=== PATIENT | female | born 1960 | race Caucasian/White ===

== ENCOUNTER → 2017-12-16 06:59 | Outpatient (CLI) | payer OTHER, SELFPAY ==
--- NOTE | 2017-12-16 07:07 | BI_ITS ---
MAMMOGRAPHY - BILATERAL SCREENING REASON FOR EXAM: Female, 57 years old. Routine annual screening examination. PERTINENT HISTORY: Personal history of breast cancer. Prior right lumpectomy and radiation therapy. Grandmother with breast cancer. TECHNIQUE: Digital bilateral breast nesha (3D mammographic acquisition) in the CC and MLO projections. 2-D mediolateral oblique (MLO) and craniocaudad (CC) views of both breasts were obtained. CAD: Full Field Digital Mammography with Computer Added Detection was performed. COMPARISON: Comparison is made with prior outside examination dated December 12, 2016. FINDINGS: Breast Composition: The breasts are heterogeneously dense, which may obscure small masses. There are no dominant masses or suspicious calcifications. Postsurgical changes are seen in the deep upper medial aspect of the right breast in keeping with prior lumpectomy and radiation treatment. Surgical clips are also seen in the right axillary region. Stable appearance of the axillary lymph nodes. No other significant abnormalities are identified. There has been no significant change since the prior study. BI/SCREENING MAMM (CAD), BILAT IMPRESSION: Stable bilateral screening mammogram. Yearly follow-up mammogram recommended. (A) ASSESSMENT CATEGORY: BIRADS Category 2: Benign. A letter regarding these results will be sent to the patient by the facility within 30 days. Approximately 10% of breast cancers are not detected by mammography. A normal mammogram should not delay biopsy of a clinically suspicious abnormality. [id number] Electronically Signed: Silverio Masters MD at 9:52 EDT Tel [phone], Service support ,
== END ==
PROVIDERS: Family Provider Internal Medicine; PCP Internal Medicine; Visit Provider Internal Medicine
DX: Z12.31 Encounter for screening mammogram for malignant neoplasm of breast (principal); Z78.0 Asymptomatic menopausal state
CPT/HCPCS: 77063; 77067

== ENCOUNTER → 2018-01-15 16:59 | Outpatient (CLI) | payer OTHER, SELFPAY ==
--- NOTE | 2018-01-15 | FLU_PTH ---
PATIENT: LUMA HERRING LOC: [facility] U#:[id number] AGE/SX: 65/F ROOM: RE01/15/[address]: Dr. To Baltazar MD : 1960 BED: DIS: SPEC #: [id number] RECD: 01/15/18 16:00 STATUS: BHANU TWIN #: [id number] ARTUR: 01/15/18 00:[address]: To Baltazar DEPT: CYTOLOGY RECD BY: Pete Patten ENTERED: 01/16/18 08:35 SP TYPE: Fluid OTHR DR: Dr. Lesly Cross, DO Tissues: Urine Procedures: Pap Stain (control) Special Stain Group II Cytospin Fluid HEADER OPERATION: Not noted PRE-OP DIAGNOSIS: Hematuria TISSUE SUBMITTED: Urine for cytology DIAGNOSIS CYTOLOGY Urine for cytology (cytospin): Negative for malignant cells. BHANU:clarita 01/19/18 CYTOLOGY STUDY Slides are reviewed. The specimen consists of benign squamous cells, urothelial cells, inflammatory cells, red blood cells and crystals. CYTOLOGY GROSS Received is 90 ml of cloudy gold/yellow fluid labeled with the patient's name and and designated per the requisition as urine. Submitted for cytology preparation. / BOLA:karla 01/16/18 TC:5 CPT: 56715
[2018-01-15 17:03] LABS: Cytology, Body Fluid / CSF SEE PATHOLOGY REPORT
== END ==
PROVIDERS: Visit Provider Urology
DX: R31.9 Hematuria, unspecified (principal)
CPT/HCPCS: 88108; 88305; 88313

== ENCOUNTER → 2018-05-19 08:30 | Outpatient (CLI) | payer OTHER, SELFPAY ==
--- NOTE | 2018-05-19 08:32 | BD_ITS ---
STUDY: DUAL ENERGY X-RAY ABSORPTIOMETRY / DXA REASON FOR EXAM: Female, 58 years old. Early menopause. No loss of height. TECHNIQUE: Bone Mineral Density (BMD) measurements of lumbar spine and bilateral hips were obtained. COMPARISON: Comparison is made with prior study dated May 15, 2016. FINDINGS: Lumbar Spine (L1-L4): g/cm2 (0.933) / T-score (-2.1) / Z-score (-1.2) Findings are suggestive of osteopenia with a moderate fracture risk. Left Femur Total: g/cm2 (0.673) / T-score (-2.7) / Z-score (-2.0) Left Femoral Neck: g/cm2 (0.709) / T-score (-2.4) / Z-score (-1.3) Right Femur Total: g/cm2 (0.726) / T-score (-2.2) / Z-score (-1.5) Right Femoral Neck: g/cm2 (0.742) / T-score (-2.1) / Z-score (-1.1) The T-Scores on the most recent prior examination were: Lumbar Spine (L1-L4): There has been improvement of bone density since the previous examination. Left Femur Total: which represents a worsening of 2.7%. Right Femur Total: which represents a worsening of 4.7%. BD/Dexa Bone Density Study IMPRESSION: The patient is considered osteoporotic as outlined below according to World Murphy Organization (WHO) criteria with a high fracture risk. There has been worsening of bone density since the previous examination. Reference Information: The T-score is the number of standard deviations above or below the standard which is normal for young adults at their peak bone mineral density. The World Health Organization (WHO) interprets the T-scores as follows: Above -1 Normal bone density Between -1 and -2.5 Osteopenia Equal to / or below -2.5 Osteoporosis As a practical clinical guideline, osteopenia may be graded as follows: Mild -1 through -1.5 Moderate -1.6 through -2.0 Severe -2.1 through -2.4 The Z-score is the number of standard deviations above or below age-matched controls. A Z-score of less than -1.5 would be considered abnormal. References: 1. NIH Osteoporosis and Related Bone Diseases http://www.osteo.org 2. International Society for Clinical Densitometry http://www.iscd.org 3. National Osteoporosis Foundation http://www.nof.org Electronically Signed: Silverio Masters MD at 13:13 EST Tel [phone], Service support ,
--- OUTSIDE RECORDS SUMMARY | 2018-06-30 21:03 | XMS RPT_ITS | Continuity of Care Document ---
:1960 Author Organization [facility] Address [facility] [address] Phone Care Team Providers Name Role Phone Lesly Cross DO Unavailable Margarito GONZALEZ, Dr. Carlos Dan Unavailable Shauna Nazario DO Unavailable ROSI Fuentes Unavailable Unavailable Nancy English Unavailable Unavailable Unavailable Unavailable Problems Name Dates Details Abnormal blood chemistry (R79.9, 790.6) Status: Active Abnormal ultrasound (R93.8, 793.99) Status: Active Basal Cell Carcinoma Status: Active BMI 21.0-21.9, adult (Z68.21, V85.1) Status: Active BMI 22.0-22.9, adult (Z68.22, V85.1) Status: Active Body mass index (BMI) 21.0-21.9, adult (Z68.21, V85.1) Status: Active CONTACT DERMATITIS AND OTHER ECZEMA DUE TO PLANTS (EXCEPT FOOD) (L25.5, 692.6) Status: Active Deliveries (Parity) Comments: 2 Status: Active Dermatitis (L30.9, 692.9) Status: Active Elevated liver enzymes (R74.8, 790.5) Comments: follow up 6 weeks Status: Active Encounter for screening mammogram for breast cancer (Renamed from Encounter for screening mammogram for malignant neoplasm of breast) (Z12.31, V76.12) Status: Active Gastroenteritis (K52.9, 558.9) Status: Active hair loss Status: Active Hypercalcemia (E83.52, 275.42) Comments: better - stay off calcium and vvit d Status: Active 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 DIET AND EXERCISE: - 10,000 steps a day (can buy a pedometer at [employer]), -5 days of w [place] of 30 mins of cardiotraining (increase heartrate around 110-130 and sweating in 10 min), twice a week of 15 min weight lifting. Keep track of daily food intake, watch portion control, must make life style change and not just diet.-limit sugars to 20-30 grams a day. Avoid soda, pop and white starches. Replace refined grains (white bread, white rice, refined sweet cereal with whole grain(whole whe at, whole grain, brown rice, whole grain cereal, oatmeal, barley, bulgar, popcorn oat cereal,muesli cereal, rye quinoa, whole grain anything) Avoid pasta, potatoes, corn syrups. Avoid pasta if you have to have any use spiralizer/spagetti squash/zuchini for pasta and quinoa for rice.(recommend 1/3 of grains whole grains, about 30 gm a day)-Avoid red meat, processed meats. Clean eating:lean protein like fish, chicken, turkey, lean redmeat (only 2-3 servings a week), baked broiled or grilled.1-2 servings of oily fish per week is recommended to decrease cardiovascular disease.- Type of fat is more important than total fat. Saturated fats to avoid are meat, dairy, chips, pastries, hydrogenated veg. oilPolyunsaturated fats are protective , in foods like nuts, avocados, olives- 2 cups of fruit and 2 cups of veggies a day ,double the vegetables over fruits. Fruits and vegetables are a high source of fiber-Eat from refrigerator not pantry. Shop from the outside aisle and produce and not inner aisl e.Weigh yourself daily, lose 1-2 pounds per week. In three months if unable to loose atleast 4 pounds a month, then need to talk about further treatment strategies.+LDL 177 was 172 on 05/11/16)TC 263 was 256HDL 59 Sedentary job. Status: Active Malignant neoplasm of breast (female) (C50.919, 174.9) Comments: 2004- lumpectomy right breast- had radiation- Dr Martinez released her Status: Active Need for prophylactic vaccination and inoculation against influenza (Z23, V04.81) Status: Active Nonsmoker (Z78.9, V49.89) Status: Active Osteoporosis (Renamed from OP (osteoporosis)) (M81.0, 733.00) Comments: On indapamide because of hypercalciuria Status: Active Other premature beats (I49.49, 427.69) Status: Active Postmenopausal (Renamed from Postmenopausal status) (Z78.0, V49.81) Status: Active postmenopausal without estrogen Status: Active postmenopausal without estrogen Status: Active Pregnancies () Comments: 2 Status: Active Pruritus (L29.9, 698.9) Status: Active screening Status: Active Screening for breast cancer (Z12.39, V76.10) Status: Active Shoulder pain (M25.519, 719.41) Comments: she will check with insurance and see if will cover pt Status: Active Squamous Cell Carcinoma Excision Status: Active Unspecified Diagnosis Status: Active Unspecified Diagnosis Status: Active Vitamin D deficiency (E55.9, 268.9) Status: Active Well woman exam with routine gynecological exam (Z01.419, V72.31) Status: Active Medications Name Dates Details Atorvastatin Calcium 10 MG Oral Tablet 1 (one) Tablet qd for 0 days Quantity: 90 {Tablet} Refills: 3 Ordered:22-May-2018 Loan Cross DO, DO, Kathleen Start : 22-May-2018 Active BIOTIN 5000, 5MG (Oral Capsule) 1 cap qd (5 MG) Active CULTURELLE (Oral Capsule) 1 cap daily Active Indapamide 1.25 MG Oral Tablet 1 (one) Tablet daily for 90 days Quantity: 90 {Tablet} Refills: 2 Ordered:30-Oct-2017 Tay TOLBERT Alcarlton TOLBERT Lesly Start : 30-Oct-2017 Active MULTIVITAMIN (PO Tab) 1 tab qd Active Tuna Fish Oil one daily Active VITAMIN D3, 1000UNIT (Oral Capsule) 1 cap daily (1000 UNIT) Active Zetia 10 MG Oral Tablet 1 (one) Tablet qd for 0 days Quantity: 90 {Tablet} Refills: 3 Ordered:16-Mar-2018 Tay TOLBERT LeslyTay TOLBERT Lesly Start : 16-Mar-2018 Active Benadryl 25 MG Oral Capsule 1 (one) Capsule at bedtime for 10 days Quantity: 10 {Capsule} Refills: 0 Ordered:17-Jan-2016 Wang Calderon MD Start : 04-Jan-2016 End : 14-Jan-2016 Inactive CALCIUM, [id number] (Oral Tablet) 1 tab qd (600-200 MG-UNIT) Inactive GLUCOSAMINE CHONDR 500 COMPLEX (Oral Capsule) 3 caps qd Inactive Lipitor 10 MG Oral Tablet 1 (one) Tablet Tablet daily for 90 days Quantity: 90 {Tablet} Refills: 1 Ordered:05-Sep-2016 Darleen Fuentes LPN Start : 14-May-2016 End : 05-Sep-2016 Inactive Meloxicam 15 MG Oral Tablet 1 (one) Tablet Tablet qd with food for 0 days Quantity: 30 {Tablet} Refills: 2 Ordered:12-Sep-2017 Darlene Fuentes LPN Start : 25-Sep-2015 End : 12-Sep-2017 Inactive MOBIC, 15MG (Oral Tablet) 1 Tablet in am with food for 0 days Quantity: 30 {Tablet} Refills: 0 Ordered:23-Dec-2012 Ani Osman LPN Start : 01-Jan-2012 End : 23-Dec-2012 Inactive PEPCID, 20MG (Oral Tablet) 1 (one) Tablet bid for 7 days Quantity: 14 {Tablet} Refills: 0 Ordered:27-Apr-2014 Huong Arellano CNP Start : 18-Jan-2014 End : 25-Jan-2014 Inactive PredniSONE 10 MG Oral Tablet 3 (three) Tablet daily for 7 days Quantity: 21 {Tablet} Refills: 0 Ordered:14-Jan-2018 Huong Arellano CNP Start : 14-Jan-2018 End : 21-Jan-2018 Inactive Comments:with food TAMOXIFEN CITRATE (Powder) Inactive ASPIRIN LOW DOSE, 81MG (Oral Tablet) 1 qd for 0 days Refills: 0 Ordered:27-Apr-2014 Elaine Gant End : 27-Apr-2014 Discontinued BENADRYL ALLERGY, 25MG (Oral Capsule) 1 (one) Capsule q6-8hrs prn for 0 days Quantity: 30 {Capsule} Refills: 0 Ordered:27-Apr-2014 Elaine Gant Start : 18-Jan-2014 End : 27-Apr-2014 Discontinued CELEXA, 10MG (Oral Tablet) 1 Tablet qam for 0 days Quantity: 90 {Tablet} Refills: 3 Ordered:27-Apr-2014 Elaine Gant Start : 27-Dec-2013 End : 27-Apr-2014 Discontinued CLARITIN, 10MG (Oral Capsule) 1 (one) Capsule daily for 0 days Quantity: 30 {Capsule} Refills: 0 Ordered:27-Apr-2014 Elaine Gant Start : 18-Jan-2014 End : 27-Apr-2014 Discontinued HYDROCHLOROTHIAZIDE, 25MG (Oral Tablet) 1 (one) Tablet Tablet qd for 0 days Quantity: 30 {Tablet} Refills: 3 Ordered:01-Jul-2014 Shauna Nazario DO Start : 01-Jul-2014 End : 01-Jul-2014 Discontinued HYDROCORTISONE VALERATE, 0.2% (External Cream) 1 (one) Cream apply qd for 0 days Quantity: 30 {Gram} Refills: 1 Ordered:15-May-2015 Elaine Gant Start : 15-Nov-2014 End : 15-May-2015 Discontinued INDAPAMIDE, 1.25MG (Oral Tablet) 1 (one) Tablet qd for 0 days Quantity: 30 {Tablet} Refills: 0 Ordered:06-Jul-2014 Elaine Gant Start : 05-Jul-2014 End : 06-Jul-2014 Discontinued KETEK TYRA, 400MG (Oral Tablet) 1 for 0 days Refills: 0 Ordered:19-May-2006 DO Shauna A Start : 19-May-2006 End : 17-Oct-2009 Discontinued Allergies and Adverse Reactions Name Dates Details Hydrochlorothiazide *DIURETICS* (Allergy) Reaction: Rash Status: Active No Known Drug Allergies (Allergy) Onset: 08-Aug-2014 Status: Inactive Past Medical History Name Dates Details Acute sinusitis, unspecified (J01.90, 461.9) Status: Inactive as of 21-Dec-2008 Allergic reaction to drug (T78.40XA, 995.29) Status: Resolved as of 15-Nov-2014 Anxiety (F41.9, 300.00) Status: Inactive as of 05-Sep-2016 Bug bite (W57.XXXA, 919.4) Status: Resolved as of 27-Apr-2014 Chest pain (R07.9, 786.59) Comments: echo looks good Status: Resolved as of 27-Apr-2014 Diarrhea in adult patient (R19.7, 787.91) Status: Inactive as of 29-Sep-2017 Elevated liver function tests (R94.5, 790.6) Comments: from lipitor Status: Resolved as of 28-Oct-2016 Hematuria (R31.9, 599.7) Comments: worked up by urology and gregory part of oopulation 10% Status: Inactive as of 29-Sep-2017 Influenza vaccination declined (Renamed from Refused influenza vaccine) (Z28.21, V64.06) Status: Inactive as of 29-Sep-2017 Pain of right forearm (M79.631, 729.5) Comments: think tendinitis need to stop lifting for now Status: Inactive as of 05-Sep-2016 Palpitations (R00.2, 785.1) Comments: avoid caffeine and decongestants Status: Inactive as of 05-Sep-2016 Rash (R21, 782.1) Status: Resolved as of 02-Apr-2018 Rash (Renamed from Cutaneous eruption) (R21, 782.1) Comments: Rash now resolved, COntinue lipitorRash gets worse stop lipitor or if you get SOB, chest pain,lighhededness,Took prednsione 9 days, did not take benadryl.Rash resolved in 2 days, while still on lipitor. Status: Inactive as of 14-May-2016 Screening for HPV (human papillomavirus) (Z11.51, V73.81) Status: Inactive as of 01-Jul-2014 Vaccine for zavyvdapvp-wqnmany-vpreihfiy with poliomyelitis (Z23, V06.3) Status: Inactive as of 01-Jul-2014 Well woman exam (Z00.00, V70.0) Status: Inactive as of 01-Jul-2014 Procedures Procedure Dates Details colonoscopy 08/08 , [place], 10 yrs, Completed hysterectomy 05/2006 Completed mammogram 12/11/15 WNL Completed Date Value Details 19-May-2018 Dexa Bone Density Study Result: Comments: See Note; NOTES: [facility] Imaging Services [address] [place] [address] Dexa Bone Density Study MR#: [id number] Acct: [id number] Name: LUMA HERRING Rep #: [id number] : 1960 F 58 From: Silverio Be MD PCP: Lesly Cross DO Status: REG CLI Study: Dexa Bone Density Study Date of Exam: 05/19/18 Exam# [id number] Ordering Dr: Lesly Cross DO UDY: DUAL ENERGY X-RAY ABSORPTIOMETRY / DXA REASON FOR EXAM: Female, 58 years old. Early menopause. No loss of height. TECHNIQUE: Bone Mineral Density (BMD) measurements of lumbar spine and bilateral hips were obtained. COMPARISON: Comparison is made with prior study dated May 15, 2016. FINDINGS: Lumbar Spine (L1-L4): g/cm2 (0.933) / T-score (-2.1) / Z-sco re (-1.2) Findings are suggestive of osteopenia with a moderate fracture risk. Left Femur Total: g/cm2 (0.673) / T-score (-2.7) / Z-score (-2.0) Left Femoral Neck: g/cm2 (0.709) / T-score (-2.4) / Z-sc ore (-1.3) Right Femur Total: g/cm2 (0.726) / T-score (-2.2) / Z-score (-1.5) Right Femoral Neck: g/cm2 (0.742) / T-score (-2.1) / Z-score (-1.1) The T- Scores on the most recent prior examination were: Lumbar Spine (L1-L4): There has been improvement of bone density since the previous examination. Left Femur Total: which represents a worsening of 2.7%. Right Femur Total: which represents a worsenin g of 4.7%. BD/Dexa Bone Density Study IMPRESSION: The patient is considered osteoporotic as outlined below according to World Murphy Organization (WHO) criteria with a high fracture risk. There has been worsening of bone density since the previous examination. Reference Information: The T-score is the number of standard deviations above or below the standard which is normal for young adults at their peak bone mineral density. The World Health Organization (WHO) interprets the T-scores as follows: Above -1 Normal bone density Between -1 and -2.5 Osteopenia Equal to / or below -2.5 Osteoporosis As a practical clinical guideline, osteopenia may be graded as follows: Mild - 1 through -1.5 Moderate -1.6 throu gh -2.0 Severe -2.1 through -2.4 The Z-score is the number of standard deviations above or below age-matched controls. A Z-score of less than -1.5 would be considered abnormal. References: 1. NIH Oste oporosis and Related Bone Diseases http://www.osteo.org 2. International Society for Clinical Densitometry http://www.iscd.org 3. National Osteoporosis Foundation http://www.nof.org Electronically Sign ed: Silverio Be MD at 13:13 EST Tel [phone], Service support , CC: Lesly Cross DO Diabetes Trainer: Signed 16-Dec-2017 SCREENING MAMM (CAD), BILAT Result: Comments: See Note; NOTES: [facility] Imaging Services [address] [place] [address] SCREENING MAMM (CAD), BILAT MR#: [id number] Acct: [id number] Name: LUMA HERRING Rep #: [id number] : 1960 F 57 From: Silverio Be MD PCP: Lesly Cross DO Status: REG CLI Study: SCREENING MAMM (CAD), BILAT Date of Exam: 12/16/17 Exam# [id number] Ordering Dr: Peri Cross DO MAMMOGRAPHY - BILATERAL SCREENING REASON FOR EXAM: Female, 57 years old. Routine annual screening examination. PERTINENT HISTORY: Personal history of breast cancer. Prior right lumpectomy and r adiation therapy. Grandmother with breast cancer. TECHNIQUE: Digital bilateral breast nesha (3D mammographic acquisition) in the CC and MLO projections. 2-D mediolateral oblique (MLO) and craniocaudad ( CC) views of both breasts were obtained. CAD: Full Field Digital Mammography with Computer Added Detection was performed. COMPARISON: Comparison is made with prior outside examination dated December 12 17. FINDINGS: Breast Composition: The breasts are heterogeneously dense, which may obscure small masses. There are no dominant masses or suspicious calcifications. Postsurgical changes are seen in the deep upper medial aspect of the right breast in keeping with prior lumpectomy and radiation treatment. Surgical clips are also seen in the right axillary region. Sta ble appearance of the axillary lymph nodes. No other significant abnormalities are identified. There has been no significant change since the prior study. BI/SCREENING MAMM (CAD), BILAT IMPRESSION: Stable bilateral screening mammogram. Yearly follow-up mammogram recommended. (A) ASSESSMENT CATEGORY: BIRADS Category 2: Benign. A letter regarding these results will be sent to the patient by the facility within 30 days. Approximately 10% of breast cancers are not detected by mammography. A normal mammogram should not delay biopsy of a clinically suspicious abnormality. [id number] Electronically Signed: Silverio Be MD at 9:52 EDT Tel [phone], Service support , Fax CC: Lesly Cross DO Diabetes Trainer: Signed 23-May-2016 Kidney and Bladder Result: Comments: See Note; NOTES: [facility] Imaging Services [address] [place] [address] Verdana 4d Kidney and Bladder MR#: [id number] Acct: [id number] Name: LUMA HERRING Rep #: [id number] : 1960 F 56 From: Dane Sampson DO PCP: Wang Calderon Status: REG CLI Study: Kidney and Bladder Date of Exam: 05/23/16 Exam# [id number] Ordering Dr: To Baltazar MD STUDY: RENAL ULTR ASOUND - COMPLETE REASON FOR EXAM: Female, 56 years old. Hematuria. TECHNIQUE: Ultrasound evaluation of the kidneys was performed with real-time and static sands-scale imaging. COMPARISON: CT of the a jayesh and, July 12, 2014. FINDINGS: RIGHT KIDNEY: Normal location of the right kidney, which is normal in size. The right kidney measures 10.3 cm. There is a no rmal cortex of the right kidney. The renal cortex measures 1.2 cm. There is no right renal mass or cyst. There are no right renal calculi. There is an extra- renal pelvis of the right kidney. There is no distention of the renal calyces. This is unchanged from the prior CT. DISTAL RIGHT URETER: There is non-visualization of the distal right ureter. There is no demonstrated right ureterovesical junction calculus. There is a visualized right ureteral jet. LEFT KIDNEY: Normal location of the left kidney, which is normal in size. The left kidney measures 10.4 cm. There is a normal cortex of the left kid gabi. The renal cortex measures 1.3 cm. There is no left renal mass or cyst. There are no left renal calculi. There is no left hydronephrosis. DISTAL LEFT URETER: There is non-visualization of the dista l left ureter. There is no demonstrated left ureterovesical junction calculus. There is a visualized left ureteral jet. BLADDER: The distended urinary bladder has a volume of 208 ml. The empty urinary bladder has a volume of 3 ml. There is a normal wall thickness of the distended urinary bladder. There is no demonstrated mass within the urinary bladder. There are no demonstrated bladder calculi. ____ US/Kidney and Bladder IMPRESSION: Normal ultrasound of the kidneys and urinary bladder. There is no interval change. Electronically Signed: Dane au, DO at 8:27 EST Tel [phone], Service support [phone], CC: To Baltazar MD; Wang Calderon Diabetes Trainer: Signed 17-May-2016 Liver Result: Comments: See Note; NOTES: [facility] Imaging Services [address] [place] [address] Verdana 4d Liver MR#: [id number] Acct: [id number] Name: LUMA HERRING Rep #: [id number] : 1960 F 56 From: Fern Wang MD PCP: Wang Calderon Status: REG CLI Study: Liver Date of Exam: 05/17/16 Exam# [id number] Ordering Dr: Wang Calderon STUDY: ABDOMINAL ULTRASOUND - RIGHT UPPER QUADR ANT REASON FOR VISIT: Female, 56 years old. ELEVATED LFTS TECHNIQUE: Ultrasound evaluation of the right upper quadrant was performed with real-time and static christine-scale imaging. TECHNICAL QUALITY: A dequate. COMPARISON: None. FINDINGS: Liver: The liver measures 12.8 cm. There is normal echogenicity of the liver. The bile ducts are within normal limits. There i s hepatic color flow. The direction of portal flow is hepatopetal. There is an echogenic mass in the right lobe of the liver measures 2.3 x 1.6 x 1.6 cm most likely represent a hemangioma. Gallbladder: Normal distended gallbladder. The gallbladder wall measures 1.7 mm. There is a negative sonographic Orona's sign. There is no pericholecystic fluid. There are no gallstones. Common Bile Duct (C.B.D.) : The common bile duct measures 3 mm. Pancreas: Normal size of the head, body and tail of the pancreas. There is normal echogenicity of the pancreas. There is no demonstrated pancreatic mass or cyst. Right Kidney: Normal size of the right kidney. The right kidney measures 10.3 x 4.0 x 4.9 cm. Normal renal cortex. The right cortex measures 1.4 cm. There is no demonstrated renal mass or cyst. There is no right hydronephrosis. 0003 US/Liver IMPRESSION: There is an echogenic mass in the right lobe of the liver measures 2.3 x 1.6 x 1.6 cm most likely represent a hemangioma. Electronically Signed: Fern Wang MD at 12:24 EST Tel , Service support [phone], CC: Wang Calderon Diabetes Trainer: Signed 15-May-2016 Dexa Bone Density Study (HP) Result: Comments: See Note; NOTES: [facility] Imaging Services [address] [place] [address] Verdana 4d Dexa Bone Density Study () MR#: [id number] Acct: [id number] Name: HALLIE HERRING Rep #: [id number] : 1960 F 56 From: Silverio Be MD PCP: Wang Calderon Status: [facility] CLI Study: Dexa Bone Density Study (HP) Date of Exam: 05/15/16 Exam# [id number] Ordering Dr: Lisette Calderon STUDY: DUAL ENERGY X-RAY ABSORPTIOMETRY / DXA REASON FOR EXAM: Female, 56 years old. The patient is postmenopausal. TECHNIQUE: Bone Mineral Density (BMD) measurements of lumbar spine and bilateral hips were obtained. COMPARISON: Comparison is made with prior examination dated May 11, 2014. FINDINGS: Lumbar Spine (L1-L4): g/cm2 (0.922) / T-score (-2.1) / Z-score (-1.4) Findings are suggestive of osteopenia with a moderate fracture risk. Left Femur Total: g/cm2 (0.692) / T-score (-2.5) / Z-score (-1.9) Left Femoral Neck: g/cm2 (0.670) / T-score (-2.6) / Z-score (-1.7) Right Femur Total: g/cm2 (0.762) / T-score (-2.0) / Z-score (-1.3) Right Femoral Neck: g/cm2 (0.762) / T-score (-2.0) / Z-score (-1.0) The T-Scores on the most recent prior examinatio n were: Lumbar Spine (L1-L4): There has been worsening of bone density since the previous examination. Left Femur Total: which represents a worsening of 2.1%. Right Femur Total: which represents a wor sening of 2.3%. HPBD/Dexa Bone Density Study (HP) IMPRESSION: The patient is considered osteopenic as outlined below according to World Murphy Org anization (WHO) criteria with a moderate fracture risk. There has been worsening of bone density since the previous examination. Reference Information: The T-score is the number of standard deviations above or below the standard which is normal for young adults at their peak bone mineral density. The World Health Organization (WHO) interprets the T-scores as follo ws: Above -1 Normal bone density Between -1 and -2.5 Osteopenia Equal to / or below -2.5 Osteoporosis As a practical clinical guideline, osteopenia may be graded as follows: Mild -1 through -1.5 Moder ate -1.6 through -2.0 Severe -2.1 through -2.4 The Z-score is the number of standard deviations above or below age-matched controls. A Z-score of less than -1.5 would be considered abnormal. Reference s: 1. NIH Osteoporosis and Related Bone Diseases http://www.osteo.org 2. International Society for Clinical Densitometry http://www.iscd.org 3. National Osteoporosis Foundation http://www.nof.org Elect ronically Signed: Silverio Be MD at 9:01 EST Tel [phone], Service support [phone], CC: Wang Calderon Diabetes Trainer: Signed 12-Dec-2015 ELECTROCARDIOGRAM, COMPLETE (ECG) (40599) Result: [MEASUREMENTS ANALYSIS] Date of Test: 12/12/2015 14:40:05; Heart Rate: 51; VT Interval: 150; QRS: 90; QT Interval: 444; Corrected QT Interval (QTc): 429; P Wave [place]: 72; QRS Wave [place]: 50; T Wave [place]: 40; Blood Pressure: 100/68 [ECG DIAGNOSTIC STATEMENTS] Date of Test: 12/12/2015 14:40:05; Summary: Sinus Bradycardia WITHIN NORMAL LIMITS 25-Sep-2015 Elbow min 3 Views Result: Comments: See Note; NOTES: [facility] Imaging Services [address] [place] [address] Verdana 4d Elbow min 3 Views MR#: [id number] Acct: [id number] Name: JACE HERRING Rep #: [id number] : 1960 F 55 From: Reymundo Harrison MD PCP: Shauna Nazario DO Status: REG CLI Study: Elbow min 3 Views Date of Exam: 09/25/15 Exam# [id number] Ordering Dr: Shauna Nazario DO STUDY: X-RAY - RIGHT ELBOW REASON FOR EXAM: Female, 55 years old. Elbow pain without injury TECHNIQUE: 3 view(s) of the elbow. COMPARISON: None. FINDINGS: Normal visualized humerus, radius and ulna. Normal radiocapitellar and ulnotrochlear articulations. The soft tissue structures are unremarkable. IMPRESSION: No rmal x-ray examination of the elbow. Electronically Signed: Reymundo Harrison MD, FACR at 15:53 EDT , Service support [phone], 77 RAD/Elbow min 3 Views IMPRESSION: Normal x-ray examination of the elbow. Electronically Signed: Reymundo Harrison MD, FACR at 15:53 EDT , Service support , CC: Shauna Nazario DO Diabetes Trainer: Signed 25-Sep-2015 Forearm 2 Views Result: Comments: See Note; NOTES: [facility] Imaging Services [address] [place] [address] Verdana 4d Forearm 2 Views MR#: [id number] Acct: [id number] Name: HALLIE HERRING Rep #: [id number] : 1960 F 55 From: Reymundo Harrison MD PCP: Shauna Nazario DO Status: REG CLI Study: Forearm 2 Views Date of Exam: 09/25/15 Exam# [id number] Ordering Dr: Shauna Nazario DO BELIA DY: X-RAY - RIGHT RADIUS AND ULNA REASON FOR EXAM: Female, 55 years old. Elbow pain without injury TECHNIQUE: 3 view(s) of the forearm. COMPARISON: None. FIN DINGS: There is no demonstrated soft tissue swelling. Normal visualized radius. Normal visualized ulna. IMPRESSION: Normal x-ray examination of the radius and ulna. Electronically Signed: Reymundo Harrison MD, FACR at 15:55 EDT , Service support [phone], RAD/Forearm 2 Views IMPRESS ION: Normal x-ray examination of the radius and ulna. Electronically Signed: Reymundo Harrison MD, FACR at 15:55 EDT , Service support [phone], CC: Shauna Nazario DO Diabetes Trainer: Signed 12-Jul-2014 Abdomen W/WO IV Contrast Result: Comments: See Note; NOTES: [facility] Imaging Services [address] [place] [address] CAT Scan Report MR#: [id number] Acct: [id number] Name: LUMA HERRING Rep #: [id number] : 1960 F 54 From: Silverio Be MD PCP: Shauna Nazario DO Status: REG CLI Study: Abdomen W/WO IV Contrast Date of Exam: 07/12/14 Exam# [id number] Ordering Dr: Shauna Nazario DO STUDY: C T ABDOMEN WITH AND WITHOUT CONTRAST REASON FOR EXAM: Female, 54 years old. Hepatic density seen on recent ultrasound of the liver. RADIATION DOSAGE (If Supplied By Facility): CTDIvol = ( 7.07 ) mGy , DLP = ( 822.60 ) mGycm TECHNIQUE: Transaxial images were obtained pre and post I.V. administration of 100ML ml of Isovue 300 Sagittal and coronal images were reconstructed. Delayed images were ob tained as well. COMPARISON: Comparison is made with prior CT scan of the abdomen dated April 20, 2012 and prior sonogram dated July 02, 2014. FINDINGS: Th e visualized lung bases are unremarkable. The visualized portions of the heart are within normal limits. There is a 3 cm x 2.5 cm in what is dense nodule in the peripheral aspect of the right lobe o f the liver correspond to the sonographic abnormality. Following intravenous contrast administration, there is evidence of peripheral to central enhancement. On the delayed images, the density is com pletely filled in with contrast. This is in keeping with hemangioma. Normal gallbladder and extrahepatic biliary system. Normal spleen. Normal pancreas. Normal bilateral adrenal glands. Normal rig ht kidney. There is a 2 mm calcification in the anterior aspect of the left kidney medially. This may represent a tiny calculus. Normal visualized stomach. Normal small intestine. Normal colon. The appendix is visualized and appears normal. There is scattered atherosclerotic calcification of the abdominal aorta, without a demonstrated aneurysm. Normal inferior vena cava. Normal retroperitoneum . Normal abdominal wall. Normal osseous structures. IMPRESSION: The sonographic abnormality in the right lobe of the liver corresponds to a hemangioma. Elect ronically Signed: Silverio Be MD at 10:27 EST Tel [phone], Service support [phone], CC: Shauna Nazario DO Diabetes Trainer: Signed 02-Jul-2014 Abdomen Limited Result: Comments: See Note; NOTES: [facility] Imaging Services [address] [place] [address] Ultrasound Report MR#: [id number] Acct: [id number] Name: LUMA HERRING Rep #: [id number] : 1960 F 54 From: Vito Odom DO PCP: Shauna Nazario DO Status: REG CLI Study: Abdomen Limited Date of Exam: 07/02/14 Exam# [id number] Ordering Dr: Shauna Nazario DO STUDY: ABDOMINAL ULT RASOUND - RIGHT UPPER QUADRANT REASON FOR VISIT: Female, 54 years old. Elevated liver enzymes. TECHNIQUE: Ultrasound evaluation of the right upper quadrant was performed with real-time and static g ray-scale imaging. TECHNICAL QUALITY: Adequate. COMPARISON: March 31, 2012. FINDINGS: Liver: The liver measures 13.6 cm. In the central right lobe, there is an area of echogenicity is demonstrated measuring up to 2.3 cm in diameter. The bile ducts are within normal limits. There is hepatic color flow. The direction of portal flow is hepatopetal. Gallb ladder: Normal distended gallbladder. The gallbladder wall measures 2.1 mm. There is a negative sonographic Orona's sign. There is no pericholecystic fluid. There are no gallstones. Common Bile Stephan t (C.B.D.): The common bile duct measures 2.3 mm. Pancreas: Normal size of the head, body and tail of the pancreas. There is normal echogenicity of the pancreas. There is no demonstrated pancreatic mass or cyst. Right Kidney: Normal size of the right kidney. The right kidney measures 10.7 x 4.1 x 4.1 cm. Normal renal cortex. The right cortex measures 1.0 cm. There is no demonstrated renal mass or cyst. Extrarenal pelvis is identified without overt hydronephrosis. Small echogenic densities in the right kidney may represent non-obstructing calyceal calculi. The largest of these densities me asures 4 mm in diameter. IMPRESSION: 2.3 cm diameter area of increased echogenicity is identified in the central portion of the liver the right lobe. Followup CT imaging of the liver is recommended pre-and post contrast along with delayed images through the liver. No gallstones or acute pericholecystic changes. Right kidney displays a prominent extrarenal pelvis without overt hydronephrosis. Small echogenic densities within the right kidney may represent nonobstructing calyceal calculi. Electronically Signed: Enrique Flaherty DO at 12:04 ES T , Service support [phone], CC: Shauna Nazario DO Diabetes Trainer: Signed 11-May-2014 Dexa Bone Density Study (HP) Result: Comments: See Note; NOTES: [facility] Imaging Services [address] [place] [address] Bone Density Report MR#: [id number] Acct: [id number] Name: LUMA HERRING Rep #: [id number] : 1960 F 54 From: Silverio Be MD PCP: Shauna Nazario DO Status: REG CLI Study: Dexa Bone Density Study (HP) Date of Exam: 05/11/14 Exam# [id number] Ordering Dr: Shauna Nazario DO STUDY: DUAL ENERGY X-RAY ABSORPTIOMETRY / DXA REASON FOR EXAM: Female, 54 years old. The patient is postmenopausal. TECHNIQUE: Bone Mineral Density (BMD) measurements of lumbar spine and bilateral hips were obtained. COMPARISON: Comparison is made with prior study dated February 27, 2005. FINDINGS: Lumbar Spine (L1- L4): g/cm2 (0.982) / T-score (-1.7) / Z -score (-1.1) Findings are suggestive of osteopenia with a moderate fracture risk. Left Femur Total: g/cm2 (0.707) / T-score (-2.4) / Z-score (-1.8) Left Femoral Neck: g/cm2 (0.696) / T-score (-2.5) / Z-score (-1.6) Right Femur Total: g/cm2 (0.780) / T-score (-1.8) / Z-score (-1.3) Right Femoral Neck: g/cm2 (0.760) / T-score (-2.0) / Z-score (-1.1) The T-Scores on the most recent prior examina tion were: Lumbar Spine (L1-L4): There has been worsening of bone density since the previous examination. Left Femur Total: which represents a worsening of 22.6%. ___ IMPRESSION: The patient is considered osteopenic as outlined below according to World Murphy Organization (WHO) criteria with a moderate fracture risk. There has been worsening of bone density s ede the previous examination. Reference Information: The T-score is the number of standard deviations above or below the standard which is normal for young enzo lts at their peak bone mineral density. The World Health Organization (WHO) interprets the T-scores as follows: Above -1 Normal bone density Between -1 and -2.5 Osteopenia Equal to / or below -2.5 Osteoporosis As a practical clinical guideline, osteopenia may be graded as follows: Mild -1 through -1.5 Moderate -1.6 through -2.0 Severe -2.1 through -2.4 The Z-score is the number of standar d deviations above or below age-matched controls. A Z-score of less than -1.5 would be considered abnormal. References: 1. NIH Osteoporosis and Related Bone Diseases http://www.osteo.org 2. Interna tional Society for Clinical Densitometry http://www.iscd.org 3. National Osteoporosis Foundation http://www.nof.org Electronically Signed: Silverio Be MD at 11:51 EST , Service support [phone], CC: Shauna Nazario DO Diabetes Trainer: Signed Family History Unknown Family Member Name Dates Details Family Members In General Comments: asthma Status: Active Social History Name Dates Details Alcohol Use Comments: Occasional alcohol use Status: Active Caffeine Use Status: Active No Drug Use Status: Active Non Smoker/No Tobacco Use Status: Active Tobacco use: Former smoker. Status: Active Smoking Status Name Dates Details Former smoker Vital Signs Date Test Result Details :05 Pulse 99 /min Comments: Pattern: Regular Respiration Rate 18 /min Comments: Pattern: Unlabored O2 SAT 99 % Comments: Room air BP Systolic 118 mm[Hg] Comments: Patient Position: Sitting; Cuff Location: Left Arm; Cuff Size: Standard BP Diastolic 68 mm[Hg] Comments: Patient Position: Sitting; Cuff Location: Left Arm; Cuff Size: Standard Weight 132.5 lb Height 64.5 in Body Mass Index Calculated 22.39 kg/m2 Body Surface Area Calculated 1.65 m2 [id number] Temperature 97.7 f Pulse 75 /min Comments: Pattern: Regular Respiration Rate 18 /min Comments: Pattern: Unlabored O2 SAT 97 % Comments: Room air BP Systolic 116 mm[Hg] Comments: Patient Position: Sitting; Cuff Location: Left Arm; Cuff Size: Standard BP Diastolic 72 mm[Hg] Comments: Patient Position: Sitting; Cuff Location: Left Arm; Cuff Size: Standard Weight 128.25 lb Height 64.5 in Body Mass Index Calculated 21.67 kg/m2 Body Surface Area Calculated 1.63 m2 :02 Pulse 60 /min Comments: Pattern: Regular Respiration Rate 18 /min Comments: Pattern: Unlabored O2 SAT 98 % Comments: Room air BP Systolic 118 mm[Hg] Comments: Patient Position: Sitting; Cuff Location: Left Arm; Cuff Size: Standard BP Diastolic 76 mm[Hg] Comments: Patient Position: Sitting; Cuff Location: Left Arm; Cuff Size: Standard Weight 128.25 lb Height 64.5 in Body Mass Index Calculated 21.67 kg/m2 Body Surface Area Calculated 1.63 m2 :00 Pulse 59 /min Comments: Pattern: Regular Respiration Rate 18 /min Comments: Pattern: Unlabored O2 SAT 97 % Comments: Room air BP Systolic 98 mm[Hg] Comments: Patient Position: Sitting; Cuff Location: Left Arm; Cuff Size: Standard BP Diastolic 56 mm[Hg] Comments: Patient Position: Sitting; Cuff Location: Left Arm; Cuff Size: Standard Weight 129.25 lb Height 64.5 in Body Mass Index Calculated 21.84 kg/m2 Body Surface Area Calculated 1.63 m2 :58 Pulse 74 /min Comments: Pattern: Regular Respiration Rate 18 /min Comments: Pattern: Unlabored O2 SAT 94 % Comments: Room air BP Systolic 98 mm[Hg] Comments: Patient Position: Sitting; Cuff Location: Left Arm; Cuff Size: Standard BP Diastolic 68 mm[Hg] Comments: Patient Position: Sitting; Cuff Location: Left Arm; Cuff Size: Standard Weight 124.25 lb Height 64.5 in Body Mass Index Calculated 21 kg/m2 Body Surface Area Calculated 1.61 m2 :58 Pulse 65 /min Comments: Pattern: Regular Respiration Rate 16 /min Comments: Pattern: Unlabored O2 SAT 98 % Comments: Room air BP Systolic 100 mm[Hg] Comments: Patient Position: Sitting; Cuff Location: Left Arm; Cuff Size: Standard BP Diastolic 60 mm[Hg] Comments: Patient Position: Sitting; Cuff Location: Left Arm; Cuff Size: Standard Weight 128.125 lb Height 64.5 in Body Mass Index Calculated 21.65 kg/m2 Body Surface Area Calculated 1.63 m2 :10 Pulse 72 /min Comments: Pattern: Regular Respiration Rate 18 /min Comments: Pattern: Unlabored O2 SAT 96 % Comments: Room air BP Systolic 102 mm[Hg] Comments: Patient Position: Sitting; Cuff Location: Left Arm; Cuff Size: Standard BP Diastolic 62 mm[Hg] Comments: Patient Position: Sitting; Cuff Location: Left Arm; Cuff Size: Standard Weight 130.125 lb Height 64.5 in Body Mass Index Calculated 21.99 kg/m2 Body Surface Area Calculated 1.64 m2 :29 Pulse 102 /min Comments: Pattern: Regular Respiration Rate 18 /min Comments: Pattern: Unlabored O2 SAT 99 % Comments: Room air BP Systolic 102 mm[Hg] Comments: Patient Position: Sitting; Cuff Location: Left Arm; Cuff Size: Large BP Diastolic 72 mm[Hg] Comments: Patient Position: Sitting; Cuff Location: Left Arm; Cuff Size: Large Weight 129.125 lb Height 64.5 in Body Mass Index Calculated 21.82 kg/m2 Body Surface Area Calculated 1.63 m2 :33 Temperature 97.2 f Comments: Method: Temporal Pulse 75 /min Comments: Pattern: Regular Respiration Rate 16 /min Comments: Pattern: Unlabored O2 SAT 97 % Comments: Room air BP Systolic 104 mm[Hg] Comments: Patient Position: Sitting; Cuff Location: Left Arm; Cuff Size: Standard BP Diastolic 70 mm[Hg] Comments: Patient Position: Sitting; Cuff Location: Left Arm; Cuff Size: Standard Weight 127 lb Height 64.5 in Body Mass Index Calculated 21.46 kg/m2 Body Surface Area Calculated 1.62 m2 :20 Pulse 91 /min Comments: Pattern: Regular Respiration Rate 16 /min Comments: Pattern: Unlabored O2 SAT 97 % Comments: Room air BP Systolic 102 mm[Hg] Comments: Patient Position: Sitting; Cuff Location: Left Arm; Cuff Size: Standard BP Diastolic 68 mm[Hg] Comments: Patient Position: Sitting; Cuff Location: Left Arm; Cuff Size: Standard Weight 127 lb Height 64.5 in Body Mass Index Calculated 21.46 kg/m2 Body Surface Area Calculated 1.62 m2 :10 Temperature 97.4 f Comments: Method: Temporal Pulse 72 /min Comments: Pattern: Regular Respiration Rate 16 /min Comments: Pattern: Unlabored O2 SAT 99 % Comments: Room air BP Systolic 100 mm[Hg] Comments: Patient Position: Sitting; Cuff Location: Left Arm; Cuff Size: Standard BP Diastolic 64 mm[Hg] Comments: Patient Position: Sitting; Cuff Location: Left Arm; Cuff Size: Standard Weight 127 lb Height 64.5 in Body Mass Index Calculated 21.46 kg/m2 Body Surface Area Calculated 1.62 m2 :36 Pulse 60 /min Comments: Pattern: Regular Respiration Rate 16 /min Comments: Pattern: Unlabored O2 SAT 98 % Comments: Room air BP Systolic 100 mm[Hg] Comments: Patient Position: Sitting; Cuff Location: Left Arm; Cuff Size: Standard BP Diastolic 68 mm[Hg] Comments: Patient Position: Sitting; Cuff Location: Left Arm; Cuff Size: Standard Weight 127 lb Height 64.5 in Body Mass Index Calculated 21.46 kg/m2 Body Surface Area Calculated 1.62 m2 :28 Temperature 97.4 f Comments: Method: Temporal Pulse 70 /min Comments: Pattern: Regular Respiration Rate 15 /min Comments: Pattern: Unlabored O2 SAT 98 % Comments: Room air BP Systolic 108 mm[Hg] Comments: Patient Position: Sitting; Cuff Location: Left Arm; Cuff Size: Standard BP Diastolic 76 mm[Hg] Comments: Patient Position: Sitting; Cuff Location: Left Arm; Cuff Size: Standard Weight 127 lb Height 64.5 in Body Mass Index Calculated 21.46 kg/m2 Body Surface Area Calculated 1.62 m2 :54 Temperature 98.9 f Comments: Method: Temporal Pulse 76 /min Comments: Pattern: Regular Respiration Rate 15 /min Comments: Pattern: Unlabored O2 SAT 98 % Comments: Room air BP Systolic 102 mm[Hg] Comments: Patient Position: Sitting; Cuff Location: Left Arm; Cuff Size: Standard BP Diastolic 70 mm[Hg] Comments: Patient Position: Sitting; Cuff Location: Left Arm; Cuff Size: Standard Weight 127 lb Height 64.5 in Body Mass Index Calculated 21.46 kg/m2 Body Surface Area Calculated 1.62 m2 :40 Temperature 98 f Comments: Method: Temporal Pulse 52 /min Comments: Pattern: Regular Respiration Rate 16 /min Comments: Pattern: Unlabored O2 SAT 99 % Comments: Room air BP Systolic 102 mm[Hg] Comments: Patient Position: Sitting; Cuff Location: Left Arm; Cuff Size: Standard BP Diastolic 74 mm[Hg] Comments: Patient Position: Sitting; Cuff Location: Left Arm; Cuff Size: Standard Weight 128 lb Height 64.5 in Body Mass Index Calculated 21.63 kg/m2 Body Surface Area Calculated 1.63 m2 :14 Temperature 98.6 f Comments: Method: Oral Pulse 64 /min Comments: Pattern: Regular Respiration Rate 16 /min Comments: Pattern: Unlabored BP Systolic 94 mm[Hg] Comments: Patient Position: Sitting; Cuff Location: Left Arm; Cuff Size: Standard BP Diastolic 60 mm[Hg] Comments: Patient Position: Sitting; Cuff Location: Left Arm; Cuff Size: Standard Weight 128 lb Height 64.5 in Body Mass Index Calculated 21.63 kg/m2 Body Surface Area Calculated 1.63 m2 :49 Temperature 98.2 f Pulse 62 /min Comments: Pattern: Regular Respiration Rate 16 /min Comments: Pattern: Unlabored BP Systolic 100 mm[Hg] Comments: Patient Position: Sitting; Cuff Location: Left Arm; Cuff Size: Standard BP Diastolic 62 mm[Hg] Comments: Patient Position: Sitting; Cuff Location: Left Arm; Cuff Size: Standard Weight 130 lb Height 64.5 in Body Mass Index Calculated 21.97 kg/m2 Body Surface Area Calculated 1.64 m2 :13 Temperature 97.7 f Pulse 80 /min Comments: Pattern: Regular Respiration Rate 16 /min Comments: Pattern: Unlabored BP Systolic 102 mm[Hg] Comments: Patient Position: Sitting; Cuff Location: Left Arm; Cuff Size: Standard BP Diastolic 70 mm[Hg] Comments: Patient Position: Sitting; Cuff Location: Left Arm; Cuff Size: Standard Weight 128 lb Height 64.5 in Body Mass Index Calculated 21.63 kg/m2 Body Surface Area Calculated 1.63 m2 :35 Temperature 98.7 f Pulse 74 /min Comments: Pattern: Regular Respiration Rate 16 /min Comments: Pattern: Unlabored BP Systolic 96 mm[Hg] Comments: Patient Position: Sitting; Cuff Location: Left Arm; Cuff Size: Standard BP Diastolic 72 mm[Hg] Comments: Patient Position: Sitting; Cuff Location: Left Arm; Cuff Size: Standard Weight 128 lb Height 64.5 in Body Mass Index Calculated 21.63 kg/m2 Body Surface Area Calculated 1.63 m2 :37 Temperature 97.2 f Comments: Method: Temporal Pulse 69 /min Comments: Pattern: Regular Respiration Rate 16 /min Comments: Pattern: Unlabored O2 SAT 98 % Comments: Room air BP Systolic 114 mm[Hg] Comments: Patient Position: Sitting; Cuff Location: Left Arm; Cuff Size: Standard BP Diastolic 64 mm[Hg] Comments: Patient Position: Sitting; Cuff Location: Left Arm; Cuff Size: Standard Weight 127 lb Height 64.5 in Body Mass Index Calculated 21.46 kg/m2 Body Surface Area Calculated 1.62 m2 :34 Temperature 98.2 f Pulse 78 /min Comments: Pattern: Regular Respiration Rate 16 /min Comments: Pattern: Unlabored BP Systolic 100 mm[Hg] Comments: Patient Position: Sitting; Cuff Location: Left Arm; Cuff Size: Standard BP Diastolic 62 mm[Hg] Comments: Patient Position: Sitting; Cuff Location: Left Arm; Cuff Size: Standard Weight 127 lb Height 64.5 in Body Mass Index Calculated 21.46 kg/m2 Body Surface Area Calculated 1.62 m2 :05 Temperature 97.3 f Comments: Method: Oral Pulse 60 /min Comments: Pattern: Regular Respiration Rate 18 /min Comments: Pattern: Unlabored O2 SAT 98 % Comments: Room air BP Systolic 84 mm[Hg] Comments: Patient Position: Sitting; Cuff Location: Left Arm; Cuff Size: Standard BP Diastolic 56 mm[Hg] Comments: Patient Position: Sitting; Cuff Location: Left Arm; Cuff Size: Standard Weight 125 lb Height 64.5 in Body Mass Index Calculated 21.12 kg/m2 Body Surface Area Calculated 1.61 m2 :08 Temperature 98.7 f Comments: Method: Oral Pulse 66 /min Comments: Pattern: Regular Respiration Rate 16 /min O2 SAT 98 % Comments: Room air BP Systolic 108 mm[Hg] Comments: Patient Position: Sitting; Cuff Location: Left Arm; Cuff Size: Standard BP Diastolic 68 mm[Hg] Comments: Patient Position: Sitting; Cuff Location: Left Arm; Cuff Size: Standard Weight 111 lb Height 64.5 in Body Mass Index Calculated 18.76 kg/m2 Body Surface Area Calculated 1.53 m2 :17 Temperature 98.3 f Comments: Method: Oral Pulse 70 /min Comments: Pattern: Regular Respiration Rate 16 /min O2 SAT 99 % Comments: Room air BP Systolic 106 mm[Hg] Comments: Patient Position: Sitting; Cuff Location: Left Arm; Cuff Size: Standard BP Diastolic 70 mm[Hg] Comments: Patient Position: Sitting; Cuff Location: Left Arm; Cuff Size: Standard Weight 111 lb Height 64.5 in Body Mass Index Calculated 18.76 kg/m2 Body Surface Area Calculated 1.53 m2 :24 Temperature 97 f Pulse 72 /min Comments: Pattern: Regular Respiration Rate 16 /min Comments: Pattern: Unlabored BP Systolic 100 mm[Hg] Comments: Patient Position: Sitting; Cuff Location: Left Arm; Cuff Size: Standard BP Diastolic 70 mm[Hg] Comments: Patient Position: Sitting; Cuff Location: Left Arm; Cuff Size: Standard Weight 111 lb Height 64.5 in Body Mass Index Calculated 18.76 kg/m2 Body Surface Area Calculated 1.53 m2 :06 Temperature 98.5 f Pulse 64 /min Comments: Pattern: Regular Respiration Rate 16 /min Comments: Pattern: Unlabored BP Systolic 102 mm[Hg] Comments: Patient Position: Sitting; Cuff Location: Left Arm; Cuff Size: Standard BP Diastolic 72 mm[Hg] Comments: Patient Position: Sitting; Cuff Location: Left Arm; Cuff Size: Standard Weight 112 lb Height 64.5 in Body Mass Index Calculated 18.93 kg/m2 Body Surface Area Calculated 1.54 m2 :42 Temperature 97.7 f Pulse 64 /min Comments: Pattern: Regular Respiration Rate 16 /min Comments: Pattern: Unlabored BP Systolic 90 mm[Hg] Comments: Patient Position: Sitting; Cuff Location: Left Arm; Cuff Size: Large BP Diastolic 62 mm[Hg] Comments: Patient Position: Sitting; Cuff Location: Left Arm; Cuff Size: Large Weight 108 lb Height 64.5 in Body Mass Index Calculated 18.25 kg/m2 Body Surface Area Calculated 1.51 m2 :12 Pulse 68 /min Comments: Pattern: Regular Respiration Rate 16 /min Comments: Pattern: Unlabored BP Systolic 90 mm[Hg] Comments: Patient Position: Sitting; Cuff Location: Left Arm; Cuff Size: Standard BP Diastolic 66 mm[Hg] Comments: Patient Position: Sitting; Cuff Location: Left Arm; Cuff Size: Standard Weight 118 lb [id number] Pulse 74 /min Comments: Pattern: Regular Respiration Rate 16 /min Comments: Pattern: Unlabored BP Systolic 92 mm[Hg] Comments: Patient Position: Sitting; Cuff Location: Left Arm; Cuff Size: Large BP Diastolic 66 mm[Hg] Comments: Patient Position: Sitting; Cuff Location: Left Arm; Cuff Size: Large Weight 118 lb :01 Temperature 97.8 f Pulse 76 /min Comments: Pattern: Regular Respiration Rate 18 /min Comments: Pattern: Unlabored BP Systolic 100 mm[Hg] Comments: Patient Position: Sitting; Cuff Location: Left Arm; Cuff Size: Large BP Diastolic 72 mm[Hg] Comments: Patient Position: Sitting; Cuff Location: Left Arm; Cuff Size: Large : Temperature 98.5 f Comments: Method: Oral Pulse 69 /min Comments: Pattern: Regular Respiration Rate 16 /min Comments: Pattern: Undefined O2 SAT 99 % Comments: Room air BP Systolic 104 mm[Hg] Comments: Patient Position: Sitting; Cuff Location: Undefined; Cuff Size: Undefined BP Diastolic 70 mm[Hg] Comments: Patient Position: Sitting; Cuff Location: Undefined; Cuff Size: Undefined Weight 0 lb Height 0 in Head Circumference 0.00 cm Results Date Description Value Details [id number] Cytology, Body Fluid / CSF Comments: Specimen Source: [facility] [id number] [facility] [place], [place], [address] CYTOLOGY,BF/CSF SEE PATHOLOGY REPORT Comments: Specimen submitted to Anatomical Pathology Department fortesting. (Normal) [id number]:00 Fluid/Washing See Note (Normal) Comments: [facility] [id number] [place], [place], [address] Comments: Patient: LUMA HERRING : 1960 (57/F) Acct Num: [id number] Phys: Giovanny GONZALEZ,To Wilson Unit Num: [id number] Loc: LABSPEC Specimen: [id number] Received: 01/15/18 - 1600 Spec Type: Fluid TISSUES TISSUES: Urine CYTOLOGY GROSS Received is 90 ml of cloudy gold/yellow fluid labeled with the patient's name and and designated per the requisition as urine. Submitted for cytology preparation. / RY:cc 01/16/18 TC:5 CPT: 21323 CYTOLOGY STUDY Slides are reviewed. The specimen consists of benign squamous cells, urothelial cells, inf lammatory cells, red blood cells and crystals. DIAGNOSIS CYTOLOGY Urine for cytology (cytospin): Negative for malignant cells. SJ:clarita 01/19/18 HEADER OPERATION: Not noted PRE-OP DIAGNOSIS: Hematuria TISSUE SUBMITTED: Urine for cytology Signed Quentin Bhattin 01/19/18 <signature on file> :00 BRCAssure Comprehensive Comments: PERFORMED BY: [email or web address] [facility] [id number] BY: [email or web address])[address] [place] [id number] Test Preauthorization APPY (Normal) Comments: Preauthorization complete.AUTH# [id number] sample has been received and DNA extraction has been performed. :00 Comprehensive BRCA1/2 Comments: PERFORMED BY: [email or web address] [id number] [facility] [id number] BY: [employer] [place] [id number] Analysis PDF . (Normal) Director Review Comment: (Normal) Comments: Shiela Le,Ph.D.,[facility] Result Comment: (Normal) Comments: No Pathogenic Variants Detected in BRCA1 or BRCA2.Gene Results BRCA1. Sequencing Negative. Del/Dup Negative. BRCA2. Sequencing Negativ e. Del/Dup Negative. Interpretation: No pathogenic variant in BRCA1 or BRCA2 was detected byfull gene sequencing and deletion/duplication analysis.. The indication for testing for this alonso ent was areported personal and/or family history of cancers relatedto Hereditary Breast and Ovarian Cancer Syndrome.. Recommendation: Genetic counseling is recommended to discuss the clinicalimplica tions of this result. Genetic counselors areavailable for health care providers to discuss this resultfurther at [phone].. Comments: Each gene sequence is interpreted independently of allother gene sequences. However, variants in different genesmay sometimes interact to cause or modify a typicallymonogenic disease phenotype. It cannot be excluded thatpathogenic variants were missed due to li mitations inherentin the sequence analysis method used here (seeMethods/Limitations section). In addition, the presence ofthe Hereditary Breast and Ovarian Cancer Syndrome due to adifferent genetic caus e can also not be ruled out. Anyinterpretation given here should be clinically correlatedwith available information about presentation and relevantfamily history of the patient.. Methods/Limitations: The entire gene coding region of BRCA1/BRCA2 genes, aswell as all flanking noncoding regions, is analyzed by nextgeneration sequencing. The fnzbqisb-bfesdyda-xeqeuweaxpebljqezm assay (MLPA) was perfor med to detect copynumber variations (deletions and duplications) in the TUVM8tkx BRCA2 genes. Synonymous variants and variants known indra benign are not reported but are available upon request.Results a re reported using numbering and nomenclaturerecommended by the Human Genome Variation Society (HGVShttp://www.hgvs.org/). Nucleotide and codon number are basedon the mRNA isoform [id number] for BRCA1 gen e and [id number] BRCA2 gene.. References: 1. National Comprehensive Cancer Network. Clinicalpractice guidelines in oncology, genetic/familial high- riskassessment: breast and ovarian. Available at : www.nccn.org.2010. Accessed 11.18.12.. 2. [place] Society of Clinical Oncology Policy StatementUpdate: Genetic Testing for Cancer Susceptibility. J ClinOncol. 2002Dec 05; 21(12):2397-406.. 3. Unique Reeves et al. MLPA screening in the BRCA1 gene from1,506 [place] hereditary breast cancer cases: noveldeletions, frequent involvement of exon 17, and occurrencein single early-onset cases. Hum Mutat. 200 8Jul;29(7):948-58.. 4. Danyelle Mckeon al. Clinical significance of largerearrangements in BRCA1 and BRCA2. Cancer. 2012 ;118(21):5210-6.. 5. Becca Bellamy et al. Working Group of the [place] Collegeof Medical Genetics and Genomics Laboratory QualityAssurance Commitee. [facility] clinical laboratory standards fornext-generation sequencing. Shanna Med. 2013Sep;15(9):733-48.. Disclaimer: Unless stated oth erwise in this report, this test wasdeveloped and its performance characteristics determined by[facility]. It has not been cleared or approved by the U.S.Foodand Drug Administration. The FDA has determined that suchclearance or approval is not necessary. This test is usedfor clinical purposes. [facility], is regulated under theClinical Laboratory Improvement Amendments of 1988 (CLIA) asqualified to perform high-complexity clinical testing.. Specimen Type Comment: (Normal) Comments: BLOOD 24-Mar-20188:47 HEPATIC FUNCTION PANEL Comments: PATIENT WAS FASTINGPERFORMED BY: [employer] [id number] BY: [employer] Yzyupq9279 [facility] [id number] ([id number]) ALT (SGPT) 25 [iU]/L (Normal) Range: 0-32 AST (SGOT) 28 [iU]/L (Normal) Range: 0-40 Alkaline Phosphatase 88 [iU]/L (Normal) Range: 39-117 Bilirubin, Direct 0.10 mg/dL (Normal) Range: 0.00-0.40 Bilirubin, Total 0.3 mg/dL (Normal) Range: 0.0-1.2 Albumin 4.5 g/dL (Normal) Range: 3.5-5.5 Protein, Total 7.0 g/dL (Normal) Range: 6.0-8.5 :47 LIPOPROTEIN, BLD, BY NMR Comments: PATIENT WAS FASTINGPERFORMED BY: [employer] [id number] BY: [employer] SolutionsJFK Medical CenterHvgjdg3860 [facility] [id number] ([id number]) LP-IR Score 32 (Normal) Comments: INSULIN RESISTANCE MARKER <--Insulin Sensitive Insulin Resistant--> Percentile in Reference PopulationInsulin Resistance ScoreLP-IR Score Low 25th 50th 75th High <27 27 45 63 >63LP-IR Score is inaccurate if patient is non-fasting. .The LP-IR score is a laboratory developed i banner that has beenassociated with insulin resistance and diabetes risk and should beused as one component of a physician's clinical assessment. TheLP-IR score listed above has not been cleared by the [place] Food andDrug Administration. LDL Size 20.6 nm (Normal) Comments: INTERPRETATIVE INFORMATION PARTICLE CONCENTRATION AND SIZE <--Lower CVD Risk Highe r CVD Risk--> LDL AND HDL PARTICLES Percentile in Reference Population HDL-P (total) High 75th 50th 25th Low >34.9 34.9 30.5 26.7 <26.7 . Small LDL-P Low 25th 50th 75th High <117 117 527 839 >839 . LDL Size <-Large (Pattern A)-> <-Small (Pattern B)-> 23.0 20.6 20.5 19.0 Small LDL-P and LDL Size are associated with CVD risk, but not afterLDL-P is taken into account. .These assays were developed and their performance characteristicsdetermined by [employer]. These assays have not been cleared by [place] Food and Drug Administration. The clinical utility of theselaboratory values have not been fully established. Small LDL-P 965 nmol/L (Abnormal) HDL-P (Total) 40.0 umol/L (Normal) Cholesterol, Total 226 mg/dL (Abnormal) Range: 100-199 Triglycerides 127 mg/dL (Normal) Range: 0-149 HDL-C 56 mg/dL (Normal) LDL-C 145 mg/dL (Abnormal) Range: 0-99 Comments: . Optimal < 100 Above optimal 100 - 129 Borderline 1 30 - 159 High 160 - 189 Very high > 189 .LDL-C is inaccurate if patient is non-fasting. LDL-P 1842 nmol/L (Abnormal) Comments: Low < 1000 Moderate 1000 - 1299 Borderline-High 1300 - 1599 High 1600 - 2000 Very High > 2000 :35 TSH (40258) Comments: PATIENT WAS FASTINGPERFORMED BY: WILLIAN Int[facility] Web SolutionsCrownpoint Health Care FacilityVgieug8902 [facility] [id number] TSH 0.747 {uIU/mL} (Normal) Range: 0.450-4.500 :35 METABOLIC PANEL, COMPREHENSIVE Comments: PATIENT WAS FASTINGPERFORMED BY: [employer]70 [facility] [id number] ([id number]) ALT (SGPT) 33 [iU]/L (Abnormal) Range: 0-32 AST (SGOT) 28 [iU]/L (Normal) Range: 0-40 Alkaline Phosphatase 91 [iU]/L (Normal) Range: 39-117 Bilirubin, Total 0.3 mg/dL (Normal) Range: 0.0-1.2 A/G Ratio 1.6 (Normal) Range: 1.2-2.2 Globulin, Total 2.4 g/dL (Normal) Range: 1.5-4.5 Albumin 3.9 g/dL (Normal) Range: 3.5-5.5 Protein, Total 6.3 g/dL (Normal) Range: 6.0-8.5 Calcium 9.3 mg/dL (Normal) Range: 8.7-10.2 Carbon Dioxide, Total 28 mmol/L (Normal) Range: 18-29 Chloride 101 mmol/L (Normal) Range: 96-106 Potassium 4.4 mmol/L (Normal) Range: 3.5-5.2 Sodium 144 mmol/L (Normal) Range: 134-144 BUN/Creatinine Ratio 23 (Normal) Range: 9-23 eGFR If Africn Am 92 mL/min/1.73 (Normal) eGFR If NonAfricn Am 80 mL/min/1.73 (Normal) Creatinine 0.83 mg/dL (Normal) Range: 0.57-1.00 BUN 19 mg/dL (Normal) Range: 6-24 Glucose 93 mg/dL (Normal) Range: 65-99 :35 CBC W/AUTO DIFF WBC (46232) Comments: PATIENT WAS FASTINGPERFORMED BY: [employer]70 [facility] [id number] Immature Grans (Abs) 0.0 {x10E3/uL} (Normal) Range: 0.0-0.1 Immature Granulocytes 0 % (Normal) Baso (Absolute) 0.0 {x10E3/uL} (Normal) Range: 0.0-0.2 Eos (Absolute) 0.1 {x10E3/uL} (Normal) Range: 0.0-0.4 Monocytes(Absolute) 0.4 {x10E3/uL} (Normal) Range: 0.1-0.9 Lymphs (Absolute) 2.4 {x10E3/uL} (Normal) Range: 0.7-3.1 Neutrophils (Absolute) 3.8 {x10E3/uL} (Normal) Range: 1.4-7.0 Basos 1 % (Normal) Eos 1 % (Normal) Monocytes 6 % (Normal) Lymphs 36 % (Normal) Neutrophils 56 % (Normal) Platelets 334 {x10E3/uL} (Normal) Range: 150-379 RDW 14.0 % (Normal) Range: 12.3-15.4 MCHC 33.7 g/dL (Normal) Range: 31.5-35.7 MCH 31.2 pg (Normal) Range: 26.6-33.0 MCV 93 fL (Normal) Range: 79-97 Hematocrit 39.2 % (Normal) Range: 34.0-46.6 Hemoglobin 13.2 g/dL (Normal) Range: 11.1-15.9 RBC 4.23 {x10E6/uL} (Normal) Range: 3.77-5.28 WBC 6.6 {x10E3/uL} (Normal) Range: 3.4-10.8 22-Sep-20179:35 CALCIFEDIOL (91886) Comments: PATIENT WAS FASTINGPERFORMED BY: [facility] Cdsitq8625 [facility] [id number] Vitamin D, 25-Hydroxy 56.8 ng/mL (Normal) Range: 30.0-100.0 Comments: Vitamin D deficiency has been defined by the [place] ofMedicine and an Endocrine Society practice guideline as alevel of serum 25-OH vitamin D less than 20 ng/mL (1,2).The Endocrine Society went on to further define vitamin Dinsufficiency as a level between 21 and 29 ng/mL (2).1. IOM ([place] of Medicine). 2010. Dietary reference intakes for calcium and D. [place]: The National Academies Press.2. Taylor MF, Herman MAGAÑA, Obdulio SOUSA, et al. Evaluation, treatment, and prevention of vitamin D deficiency: an Endocrine Society clinical practice guideline. JCEM. 2010; 96(7):1911-30. 22-Sep-20179:35 LIPID PANEL (07070) Comments: PATIENT WAS FASTINGPERFORMED BY: [facility] CookiesTrendabl [place] [id number]; ov 4/9 LDL/HDL Ratio 3.2 {ratio} (Normal) Range: 0.0-3.2 Comments: LDL/HDL Ratio Men Women 1/2 Avg.Risk 1.0 1.5 Av g.Risk 3.6 3.2 2X Avg.Risk 6.2 5.0 3X Avg.Risk 8.0 6.1 LDL Cholesterol Calc 129 mg/dL (Abnormal) Range: 0-99 VLDL Cholesterol Kenyon 38 mg/dL (Normal) Range: 5-40 HDL Cholesterol 40 mg/dL (Normal) Triglycerides 188 mg/dL (Abnormal) Range: 0-149 Cholesterol, Total 207 mg/dL (Abnormal) Range: 100-199 8-Omm-168435:42 Microscopic Examination Comments: PATIENT WAS FASTINGPERFORMED BY: 365looks ([email or web address])6370 [facility]Nov[facility] [id number] Bacteria Few (Normal) Mucus Threads Present (Normal) Crystal Type Amorphous Sediment (Normal) Crystals Present (Abnormal) Epithelial Cells (non renal) 0-10 {/hpf} (Normal) Range: 0 - 10 RBC 0-2 {/hpf} (Normal) Range: 0 - 2 WBC 0-5 {/hpf} (Normal) Range: 0 - 5 8-Ekl-462974:42 URINALYSIS (56255) Comments: PATIENT WAS FASTINGPERFORMED BY: Nokter70 [facility]akNov[facility] [id number] Microscopic Examination See below: (Normal) Comments: Microscopic was indicated and was performed. Nitrite, Urine Negative (Normal) Urobilinogen,Semi-Qn 0.2 mg/dL (Normal) Range: 0.2-1.0 Bilirubin Negative (Normal) Occult Blood 1+ (Abnormal) Ketones Negative (Normal) Glucose Negative (Normal) Protein Negative (Normal) WBC Esterase Negative (Normal) Appearance Cloudy (Abnormal) Urine-Color Yellow (Normal) pH 7.5 (Normal) Range: 5.0-7.5 Specific Watson 1.020 (Normal) Range: 1.005-1.030 1-Sdd-675860:42 CBC WITH MANUAL DIFF (18802) Comments: PATIENT WAS FASTINGPERFORMED BY: LabCoJFK Medical CenterRuiggz8299 [facility] [id number] Immature Grans (Abs) 0.0 {x10E3/uL} (Normal) Range: 0.0-0.1 Immature Granulocytes 0 % (Normal) Baso (Absolute) 0.0 {x10E3/uL} (Normal) Range: 0.0-0.2 Eos (Absolute) 0.1 {x10E3/uL} (Normal) Range: 0.0-0.4 Monocytes(Absolute) 0.4 {x10E3/uL} (Normal) Range: 0.1-0.9 Lymphs (Absolute) 2.0 {x10E3/uL} (Normal) Range: 0.7-3.1 Neutrophils (Absolute) 2.5 {x10E3/uL} (Normal) Range: 1.4-7.0 Basos 0 % (Normal) Eos 1 % (Normal) Monocytes 8 % (Normal) Lymphs 40 % (Normal) Neutrophils 51 % (Normal) Platelets 238 {x10E3/uL} (Normal) Range: 150-379 RDW 13.7 % (Normal) Range: 12.3-15.4 MCHC 33.0 g/dL (Normal) Range: 31.5-35.7 MCH 30.8 pg (Normal) Range: 26.6-33.0 MCV 93 fL (Normal) Range: 79-97 Hematocrit 42.4 % (Normal) Range: 34.0-46.6 Hemoglobin 14.0 g/dL (Normal) Range: 11.1-15.9 RBC 4.54 {x10E6/uL} (Normal) Range: 3.77-5.28 WBC 5.0 {x10E3/uL} (Normal) Range: 3.4-10.8 :42 Metabolic Panel, Comprehensive Comments: PATIENT WAS FASTINGPERFORMED BY: [employer]70 [facility] [id number] ([id number]) ALT (SGPT) 26 [iU]/L (Normal) Range: 0-32 AST (SGOT) 31 [iU]/L (Normal) Range: 0-40 Alkaline Phosphatase, S 91 [iU]/L (Normal) Range: 39-117 Bilirubin, Total 0.3 mg/dL (Normal) Range: 0.0-1.2 A/G Ratio 1.8 (Normal) Range: 1.2-2.2 Globulin, Total 2.3 g/dL (Normal) Range: 1.5-4.5 Albumin, Serum 4.1 g/dL (Normal) Range: 3.5-5.5 Protein, Total, Serum 6.4 g/dL (Normal) Range: 6.0-8.5 Calcium, Serum 9.5 mg/dL (Normal) Range: 8.7-10.2 Carbon Dioxide, Total 26 mmol/L (Normal) Range: 18-29 Chloride, Serum 97 mmol/L (Normal) Range: 96-106 Potassium, Serum 4.3 mmol/L (Normal) Range: 3.5-5.2 Sodium, Serum 140 mmol/L (Normal) Range: 134-144 BUN/Creatinine Ratio 21 (Normal) Range: 9-23 eGFR If Africn Am 91 mL/min/1.73 (Normal) eGFR If NonAfricn Am 79 mL/min/1.73 (Normal) Creatinine, Serum 0.84 mg/dL (Normal) Range: 0.57-1.00 BUN 18 mg/dL (Normal) Range: 6-24 Glucose, Serum 89 mg/dL (Normal) Range: 65-99 6-Jmb-337577:42 Lipid Panel (42829) Comments: PATIENT WAS FASTINGPERFORMED BY: [employer]6370 [facility] [id number] LDL/HDL Ratio 2.0 {ratio_units} (Normal) Range: 0.0-3.2 Comments: LDL/HDL Ratio Men Women 1/2 Avg.Risk 1.0 1.5 Av g.Risk 3.6 3.2 2X Avg.Risk 6.2 5.0 3X Avg.Risk 8.0 6.1 LDL Cholesterol Calc 115 mg/dL (Abnormal) Range: 0-99 VLDL Cholesterol Kenyon 17 mg/dL (Normal) Range: 5-40 HDL Cholesterol 58 mg/dL (Normal) Triglycerides 87 mg/dL (Normal) Range: 0-149 Cholesterol, Total 190 mg/dL (Normal) Range: 100-199 :42 CALCIFIDIOL (69434) VIT D 25 Comments: PATIENT WAS FASTINGPERFORMED BY: [employer] Web SolutionsJFK Medical CenterYefefs1791 [facility] [id number] Vitamin D, 25-Hydroxy 55.0 ng/mL (Normal) Range: 30.0-100.0 Comments: Vitamin D deficiency has been defined by the [place] ofMedicine and an Endocrine Society practice guideline as alevel of serum 25-OH vitamin D less than 20 ng/mL (1,2).The Endocrine Society went on to further define vitamin Dinsufficiency as a level between 21 and 29 ng/mL (2).1. IOM ([place]). 2010. Dietary reference intakes for calcium and D. [place]: The National Academies Press.2. Taylor MF, Herman NC, Obdulio SOUSA, et al. Evaluation, treatment, and prevention of vitamin D deficiency: an Endocrine Society clinical practice guideline. JCEM. 2010; 96(7):1911-30. :51 HEPATIC FUNCTION PANEL Comments: PATIENT WAS FASTINGPERFORMED BY: [employer] Web SolutionsJFK Medical CenterHqxjre3020 [facility] [id number] ([id number]) ALT (SGPT) 25 [iU]/L (Normal) Range: 0-32 AST (SGOT) 28 [iU]/L (Normal) Range: 0-40 Alkaline Phosphatase, S 100 [iU]/L (Normal) Range: 39-117 Bilirubin, Direct 0.10 mg/dL (Normal) Range: 0.00-0.40 Bilirubin, Total 0.3 mg/dL (Normal) Range: 0.0-1.2 Albumin, Serum 4.2 g/dL (Normal) Range: 3.5-5.5 Protein, Total, Serum 6.6 g/dL (Normal) Range: 6.0-8.5 13-Vcx-88472:45 HEPATIC FUNCTION PANEL Comments: PATIENT NOT FASTINGPERFORMED BY: [facility] Kfmdkq8148 Cristina BustamanteNov[facility] Health [facility] [id number] ([id number]) ALT (SGPT) 93 [iU]/L (Abnormal) Range: 0-32 AST (SGOT) 43 [iU]/L (Abnormal) Range: 0-40 Alkaline Phosphatase, 132 [iU]/L (Abnormal) Range: 39-117 S Bilirubin, Direct 0.07 mg/dL (Normal) Range: 0.00-0.40 Bilirubin, Total <0.2 mg/dL (Normal) Range: 0.0-1.2 Albumin, Serum 4.2 g/dL (Normal) Range: 3.5-5.5 Protein, Total, Serum 6.7 g/dL (Normal) Range: 6.0-8.5 79-Olo-80965:00 CYTOSPIN ON FLUID See Note (Normal) Comments: [facility] [address] [place], [place], [address] Comments: Patient: LUMA HERRING : 1960 (56/F) Acct Num: [id number] Phys: Giovanny GONZALEZ,Manny Unit Num: [id number] Loc: LABSPEC Specimen: [id number] Received: 05/21/16 - 1054 Spec Ty pe: CYSPIN FL TISSUES TISSUES: CYTOLOGY GROSS Received is 70 ml of light yellow clear fluid labeled with the patient's name and and designated per the requisition as urine. Bradshaw bmitted for cytology preparation. /CC: cc 05/21/16 TC:5 CPT: 14649 CYTOLOGY STUDY Slides are reviewed. The specimen consists of benign squamous cells, urothelial cells, red blood cells, n eutrophils and lymphocytes. DIAGNOSIS CYTOLOGY Urine for cytology (cytospin): Negative for malignant cells. BHANU:clarita 05/22/16 HEADER OPERATION: Not noted PRE-OP DIAGNOSIS: Benign essential microscopic hematuria TISSUE SUBMITTED: Urine for cytology Signed Quentin Munoz 05/22/16 <signature on file> 67-Tal-183724:30 Cytology, Body Fluid / CSF Comments: Specimen Source: [facility] [address] [place], [id number] CYTOLOGY,BF/CSF SEE PATHOLOGY REPORT (Normal) Comments: Specimen submitted to Anatomical Pathology Department aurelia. :40 CBC, PLATELETS & AUT DIFF Comments: PATIENT NOT FASTINGPERFORMED BY: [facility] Nlnemu0888 [facility] [id number] ([id number]) Immature Grans (Abs) 0.0 {x10E3/uL} (Normal) Range: 0.0-0.1 Immature Granulocytes 0 % (Normal) Baso (Absolute) 0.0 {x10E3/uL} (Normal) Range: 0.0-0.2 Eos (Absolute) 0.1 {x10E3/uL} (Normal) Range: 0.0-0.4 Monocytes(Absolute) 0.3 {x10E3/uL} (Normal) Range: 0.1-0.9 Lymphs (Absolute) 2.2 {x10E3/uL} (Normal) Range: 0.7-3.1 Neutrophils (Absolute) 3.3 {x10E3/uL} (Normal) Range: 1.4-7.0 Basos 0 % (Normal) Eos 1 % (Normal) Monocytes 6 % (Normal) Lymphs 38 % (Normal) Neutrophils 55 % (Normal) Platelets 253 {x10E3/uL} (Normal) Range: 150-379 RDW 13.9 % (Normal) Range: 12.3-15.4 MCHC 34.4 g/dL (Normal) Range: 31.5-35.7 MCH 31.2 pg (Normal) Range: 26.6-33.0 MCV 91 fL (Normal) Range: 79-97 Hematocrit 42.7 % (Normal) Range: 34.0-46.6 Hemoglobin 14.7 g/dL (Normal) Range: 11.1-15.9 RBC 4.71 {x10E6/uL} (Normal) Range: 3.77-5.28 WBC 5.9 {x10E3/uL} (Normal) Range: 3.4-10.8 95-Rxz-677149:40 HEPATIC FUNCTION PANEL Comments: PATIENT NOT FASTINGPERFORMED BY: [place] [id number] [facility] [id number] ([id number]) ALT (SGPT) 70 [iU]/L (Abnormal) Range: 0-32 AST (SGOT) 47 [iU]/L (Abnormal) Range: 0-40 Alkaline Phosphatase, S 114 [iU]/L (Normal) Range: 39-117 Bilirubin, Direct 0.09 mg/dL (Normal) Range: 0.00-0.40 Bilirubin, Total 0.3 mg/dL (Normal) Range: 0.0-1.2 Albumin, Serum 4.4 g/dL (Normal) Range: 3.5-5.5 Protein, Total, Serum 7.1 g/dL (Normal) Range: 6.0-8.5 :40 HEPATITIS PANEL (00127) Comments: PATIENT NOT FASTINGPERFORMED BY: [facility]6370 [facility] [id number] Hep C Virus Ab <0.1 {s/co_ratio} (Normal) Range: 0.0-0.9 Comments: Negative: < 0.8 Indeterminate: 0.8 - 0.9 Positive: > 0.9 . The CDC recommends that a positive HCV antibody result be followed up with a HCV Nucleic Acid Amplification test (411514). Hep B Core Ab, IgM Negative (Normal) HBsAg Screen Negative (Normal) Hep A Ab, IgM Negative (Normal) 10-Ymt-287537:40 ANTIMITOCHONDRIAL ANTIBODY Comments: PATIENT NOT FASTINGPERFORMED BY: [facility]6370 [facility] [id number] ([id number]) Mitochondrial (M2) Antibody <20.0 {Units} (Normal) Range: 0.0-20.0 Comments: Negative 0.0 - 20.0 Equivocal 20.1 - 24.9 Positive >24.9 . Mitochondrial (M2) Antibodies are found in 90-96% of patients with primary biliary cirrhosis. :40 TRANSFERRIN (99349) Comments: PATIENT NOT FASTINGPERFORMED BY: [facility]6370 [facility] [id number] Transferrin 272 mg/dL (Normal) Range: 200-370 :40 GGT (GAMMA GLUTAMYLTRANSFERASE) Comments: PATIENT NOT FASTINGPERFORMED BY: WILLIAN [facility]dayC[facility] Health Bjtlaj8603 [facility] [id number] ([id number]) GGT 49 [iU]/L (Normal) Range: 0-60 :40 FERRITIN (60952) Comments: PATIENT NOT FASTINGPERFORMED BY: HeydayAmanda Ville 3812370 [facility] [id number] Ferritin, Serum 340 ng/mL (Abnormal) Range: 15-150 :40 CMV IGM ANTBDY (27279) Comments: PATIENT NOT FASTINGPERFORMED BY: Heyday[address] [id number] Cytomegalovirus (CMV) Ab, IgM <30.0 AU/mL (Normal) Range: 0.0-29.9 Comments: Negative <30.0 Equivocal 30.0 - 34.9 Positive >34.9 A positive result is generally indicative of acute infection, reactivation or persistent IgM production. :40 CERULOPLASMIN (08302) Comments: PATIENT NOT FASTINGPERFORMED BY: [facility]6370 [facility] [id number] Ceruloplasmin 29.7 mg/dL (Normal) Range: 19.0-39.0 :40 ASM (ANTI SMOOTH MUSCLE Comments: PATIENT NOT FASTINGPERFORMED BY: Heyday[address] [id number] ANTIBODY) (00469) Actin (Smooth Muscle) Antibody 9 {Units} (Normal) Range: 0-19 Comments: Negative 0 - 19 Weak positive 20 - 30 Moderate to strong positive >30 . Actin Antibodies are found in 52-85% of patients with autoimmune hepatitis or chronic active hepatitis and in 22% of patients with primary biliary cirrhosis. :40 ANTI-LIVER/KIDNEY MICROSOMAL Comments: PATIENT NOT FASTINGPERFORMED BY: [facility]dayUniversity [facility] Hospital6370 [facility] [id number] ANTIBODY (71841) Thyroid Peroxidase (TPO) Ab 14 {IU/mL} (Normal) Range: 0-34 84-Gau-915926:40 DONALDO (ANTINUCLEAR ANTIBODY) Comments: PATIENT NOT FASTINGPERFORMED BY: [employer] [facility] [id number] (06966) DONALDO Direct Negative (Normal) 90-Qri-525930:16 Urinalysis, Office (24439) UA - LEUKOCYTE ESTERASE Negative (Normal) UA - NITRITE Negative (Normal) URINE UROBILINGN MARIELA TIMED Normal mg/dL (Normal) UA - PROTEIN Negative mg/dL (Normal) UA - PH 7 (Normal) UA - BLOOD Non Hemolyzed Moderate (Normal) UA - SPECIFIC GRAVITY 1.010 (Normal) UA - KETONES Negative mg/dL (Normal) UA - BILIRUBIN Negative (Normal) UA - GLUCOSE Negative (Normal) 47-Yao-511856:03 URINE DAVID CULTURE-MARIELA COL Comments: PATIENT NOT FASTINGPERFORMED BY: [employer] [facility] [id number] Information: SRC:UC COUNT (36808) Result 1 NG36 (Normal) Comments: No growth in 36 - 48 hours. Urine Culture,Comprehensive Final report (Normal) 45-Elp-309184:55 Microscopic Examination Comments: PATIENT WAS FASTINGPERFORMED BY: [employer] Jjgfij7249 [facility] [id number] Bacteria Few (Normal) Mucus Threads Present (Normal) Epithelial Cells (non renal) 0-10 {/hpf} (Normal) Range: 0 - 10 RBC 3-10 {/hpf} (Abnormal) Range: 0 - 2 WBC 0-5 {/hpf} (Normal) Range: 0 - 5 :55 Metabolic Panel, Comprehensive Comments: PATIENT WAS FASTINGPERFORMED BY: [employer] Rshpqh9531 [facility] [id number] (02461) ALT (SGPT) 104 [iU]/L (Abnormal) Range: 0-32 AST (SGOT) 65 [iU]/L (Abnormal) Range: 0-40 Alkaline Phosphatase, S 116 [iU]/L (Normal) Range: 39-117 Bilirubin, Total 0.4 mg/dL (Normal) Range: 0.0-1.2 A/G Ratio 1.8 (Normal) Range: 1.1-2.5 Globulin, Total 2.4 g/dL (Normal) Range: 1.5-4.5 Albumin, Serum 4.4 g/dL (Normal) Range: 3.5-5.5 Protein, Total, Serum 6.8 g/dL (Normal) Range: 6.0-8.5 Calcium, Serum 9.4 mg/dL (Normal) Range: 8.7-10.2 Carbon Dioxide, Total 30 mmol/L (Abnormal) Range: 18-29 Chloride, Serum 100 mmol/L (Normal) Range: 97-106 Potassium, Serum 3.8 mmol/L (Normal) Range: 3.5-5.2 Sodium, Serum 143 mmol/L (Normal) Range: 136-144 BUN/Creatinine Ratio 30 (Abnormal) Range: 9-23 eGFR If Africn Am 108 mL/min/1.73 (Normal) eGFR If NonAfricn Am 94 mL/min/1.73 (Normal) Creatinine, Serum 0.73 mg/dL (Normal) Range: 0.57-1.00 BUN 22 mg/dL (Normal) Range: 6-24 Glucose, Serum 85 mg/dL (Normal) Range: 65-99 96-Vtv-169081:55 Lipid Panel (91159) Comments: PATIENT WAS FASTINGPERFORMED BY: [facility] CookiesNovant Health [facility] [id number] LDL/HDL Ratio 2.0 {ratio_units} (Normal) Range: 0.0-3.2 Comments: LDL/HDL Ratio Men Women 1/2 Avg.Risk 1.0 1.5 Av g.Risk 3.6 3.2 2X Avg.Risk 6.2 5.0 3X Avg.Risk 8.0 6.1 LDL Cholesterol Calc 121 mg/dL (Abnormal) Range: 0-99 VLDL Cholesterol Kenyon 28 mg/dL (Normal) Range: 5-40 HDL Cholesterol 61 mg/dL (Normal) Triglycerides 142 mg/dL (Normal) Range: 0-149 Cholesterol, Total 210 mg/dL (Abnormal) Range: 100-199 31-Lve-948726:55 URINALYSIS, W/ MICRO (33298) Comments: PATIENT WAS FASTINGPERFORMED BY: Nokter70 [facility]ekapakNovant Health [facility] Center [id number] Microscopic Examination See below: (Normal) Comments: Microscopic was indicated and was performed. Nitrite, Urine Negative (Normal) Urobilinogen,Semi-Qn 0.2 mg/dL (Normal) Range: 0.2-1.0 Bilirubin Negative (Normal) Occult Blood 2+ (Abnormal) Ketones Negative (Normal) Glucose Negative (Normal) Protein Negative (Normal) WBC Esterase Negative (Normal) Appearance Clear (Normal) Urine-Color Yellow (Normal) pH 6.0 (Normal) Range: 5.0-7.5 Specific Watson 1.023 (Normal) Range: 1.005-1.030 :55 CALCIFEDIOL (92352) Comments: PATIENT WAS FASTINGPERFORMED BY: 365looks (Coqueta.me)6370 [facility] [id number] Vitamin D, 25-Hydroxy 42.8 ng/mL (Normal) Range: 30.0-100.0 Comments: Vitamin D deficiency has been defined by the [place] of[facility] Health[facility] and an Endocrine Society practice guideline as alevel of serum 25-OH vitamin D less than 20 ng/mL (1,2).The Endocrine Society went on to further define vitamin Dinsufficiency as a level between 21 and 29 ng/mL (2).1. IOM ([place] of Medicine). 2010. Dietary reference intakes for calcium and D. [place]: The National Academies Press.2. Taylor MF, Herman MAGAÑA, Obdulio SOUSA, et al. Evaluation, treatment, and prevention of vitamin D deficiency: an Endocrine Society clinical practice guideline. JCEM. 2010; 96(7):1911-30. :48 METABOLIC PANEL, Comments: PATIENT WAS FASTINGPERFORMED BY: Intuitive Web SolutionsJFK Medical CenterOmpnjh1756 [facility] [id number] Information: [id number] COMPREHENSIVE (18486) ALT (SGPT) 48 [iU]/L (Abnormal) Range: 0-32 AST (SGOT) 36 [iU]/L (Normal) Range: 0-40 Alkaline Phosphatase, S 94 [iU]/L (Normal) Range: 39-117 Bilirubin, Total 0.5 mg/dL (Normal) Range: 0.0-1.2 A/G Ratio 2.1 (Normal) Range: 1.1-2.5 Globulin, Total 2.1 g/dL (Normal) Range: 1.5-4.5 Albumin, Serum 4.4 g/dL (Normal) Range: 3.5-5.5 Protein, Total, Serum 6.5 g/dL (Normal) Range: 6.0-8.5 Calcium, Serum 9.4 mg/dL (Normal) Range: 8.7-10.2 Carbon Dioxide, Total 27 mmol/L (Normal) Range: 18-29 Chloride, Serum 99 mmol/L (Normal) Range: 97-108 Potassium, Serum 4.0 mmol/L (Normal) Range: 3.5-5.2 Sodium, Serum 143 mmol/L (Normal) Range: 134-144 BUN/Creatinine Ratio 29 (Abnormal) Range: 9-23 eGFR If Africn Am 83 mL/min/1.73 (Normal) eGFR If NonAfricn Am 72 mL/min/1.73 (Normal) Creatinine, Serum 0.91 mg/dL (Normal) Range: 0.57-1.00 BUN 26 mg/dL (Abnormal) Range: 6-24 Glucose, Serum 87 mg/dL (Normal) Range: 65-99 :48 LIPID PANEL (76040) Comments: PATIENT WAS FASTINGPERFORMED BY: TiltJFK Medical CenterCwbkkx6776 [facility] [id number] LDL/HDL Ratio 1.8 {ratio_units} (Normal) Range: 0.0-3.2 Comments: LDL/HDL Ratio Men Women 1/2 Avg.Risk 1.0 1.5 Av g.Risk 3.6 3.2 2X Avg.Risk 6.2 5.0 3X Avg.Risk 8.0 6.1 LDL Cholesterol Calc 114 mg/dL (Abnormal) Range: 0-99 VLDL Cholesterol Kenyon 19 mg/dL (Normal) Range: 5-40 HDL Cholesterol 65 mg/dL (Normal) Comments: According to ATP-III Guidelines, HDL-C >59 mg/dL is considered anegative risk factor for CHD. Triglycerides 95 mg/dL (Normal) Range: 0-149 Cholesterol, Total 198 mg/dL (Normal) Range: 100-199 :06 Vitamin D Hydroxy (20418) Comments: PATIENT WAS FASTINGPERFORMED BY: TiltJFK Medical CenterIenvum1469 [facility] [id number] Vitamin D, 25-Hydroxy 47.2 ng/mL (Normal) Range: 30.0-100.0 Comments: Vitamin D deficiency has been defined by the [place] of[facility] and an Endocrine Society practice guideline as alevel of serum 25-OH vitamin D less than 20 ng/mL (1,2).The Endocrine Society went on to further define vitamin Dinsufficiency as a level between 21 and 29 ng/mL (2).1. IOM ([place]). 2010. Dietary reference intakes for calcium and D. [place]: The National AcademVDI Space Press.2. Taylor MF, Herman MAGAÑA, Obdulio SOUSA, et al. Evaluation, treatment, and prevention of vitamin D deficiency: an Endocrine Society clinical practice guideline. JCEM. 2010; 96(7):1911-30. 38-Nvr-72909:06 METABOLIC PANEL, Comments: PATIENT WAS FASTINGPERFORMED BY: Intuitive Web SolutionsJFK Medical CenterPkqtrw5716 [facility] [id number] Information: [id number] COMPREHENSIVE (07970) ALT (SGPT) 45 [iU]/L (Abnormal) Range: 0-32 AST (SGOT) 34 [iU]/L (Normal) Range: 0-40 Alkaline Phosphatase, S 113 [iU]/L (Normal) Range: 39-117 Bilirubin, Total 0.3 mg/dL (Normal) Range: 0.0-1.2 A/G Ratio 2.0 (Normal) Range: 1.1-2.5 Globulin, Total 2.2 g/dL (Normal) Range: 1.5-4.5 Albumin, Serum 4.4 g/dL (Normal) Range: 3.5-5.5 Protein, Total, Serum 6.6 g/dL (Normal) Range: 6.0-8.5 Calcium, Serum 10.0 mg/dL (Normal) Range: 8.7-10.2 Carbon Dioxide, Total 29 mmol/L (Normal) Range: 18-29 Chloride, Serum 98 mmol/L (Normal) Range: 97-108 Potassium, Serum 4.4 mmol/L (Normal) Range: 3.5-5.2 Sodium, Serum 141 mmol/L (Normal) Range: 134-144 BUN/Creatinine Ratio 16 (Normal) Range: 9-23 eGFR If Africn Am 82 mL/min/1.73 (Normal) eGFR If NonAfricn Am 71 mL/min/1.73 (Normal) Creatinine, Serum 0.92 mg/dL (Normal) Range: 0.57-1.00 BUN 15 mg/dL (Normal) Range: 6-24 Glucose, Serum 90 mg/dL (Normal) Range: 65-99 11-Qgf-24730:06 LIPID PANEL (05448) Comments: PATIENT WAS FASTINGPERFORMED BY: [facility] CookiesNovant Health Rowan Medical Center [id number] LDL/HDL Ratio 3.0 {ratio_units} (Normal) Range: 0.0-3.2 Comments: LDL/HDL Ratio Men Women 1/2 Avg.Risk 1.0 1.5 Av g.Risk 3.6 3.2 2X Avg.Risk 6.2 5.0 3X Avg.Risk 8.0 6.1 LDL Cholesterol Calc 177 mg/dL (Abnormal) Range: 0-99 VLDL Cholesterol Kenyon 27 mg/dL (Normal) Range: 5-40 HDL Cholesterol 59 mg/dL (Normal) Comments: According to ATP-III Guidelines, HDL-C >59 mg/dL is considered anegative risk factor for CHD. Triglycerides 133 mg/dL (Normal) Range: 0-149 Cholesterol, Total 263 mg/dL (Abnormal) Range: 100-199 46-Bht-774997:47 URINE CALCIUM MARIELA TIMED Comments: PATIENT NOT FASTINGPERFORMED BY: GroundCntrl [facility] HospitalKnowromNovant Health Row[facility] Center [id number] Information: [id number] START 07/16/15@7AM FINISH 24 Hour (36646) Calcium, Urine 24hr 288.2 {mg/24_hr} (Normal) Range: 100.0-300.0 Calcium, Urine 13.1 mg/dL (Normal) 12-Msc-35641:01 CALCIFEDIOL (78687) Comments: PATIENT NOT FASTINGPERFORMED BY: [facility] CookiesNovant Health Rowan Medical Center [id number] Vitamin D, 25-Hydroxy 37.1 ng/mL (Normal) Range: 30.0-100.0 Comments: Vitamin D deficiency has been defined by the [place] of[place]icine and an Endocrine Society practice guideline as alevel of serum 25-OH vitamin D less than 20 ng/mL (1,2).The Endocrine Society went on to further define vitamin Dinsufficiency as a level between 21 and 29 ng/mL (2).1. IOM ([place]). 2010. Dietary reference intakes for calcium and D. [place]: The National Academies Press.2. Taylor MF, Herman MAGAÑA, Obdulio SOUSA, et al. Evaluation, treatment, and prevention of vitamin D deficiency: an Endocrine Society clinical practice guideline. JCEM. 2010; 96(7):1911-30. 01-Npd-20860:01 METABOLIC PANEL, COMPREHENSIVE Comments: PATIENT NOT FASTINGPERFORMED BY: [facility] Qekgfg8580 [facility] [id number] (32263) ALT (SGPT) 28 [iU]/L (Normal) Range: 0-32 AST (SGOT) 30 [iU]/L (Normal) Range: 0-40 Alkaline Phosphatase, S 113 [iU]/L (Normal) Range: 39-117 Bilirubin, Total 0.3 mg/dL (Normal) Range: 0.0-1.2 A/G Ratio 2.1 (Normal) Range: 1.1-2.5 Globulin, Total 2.1 g/dL (Normal) Range: 1.5-4.5 Albumin, Serum 4.5 g/dL (Normal) Range: 3.5-5.5 Protein, Total, Serum 6.6 g/dL (Normal) Range: 6.0-8.5 Calcium, Serum 9.6 mg/dL (Normal) Range: 8.7-10.2 Carbon Dioxide, Total 29 mmol/L (Normal) Range: 18-29 Chloride, Serum 100 mmol/L (Normal) Range: 97-108 Potassium, Serum 4.3 mmol/L (Normal) Range: 3.5-5.2 Sodium, Serum 143 mmol/L (Normal) Range: 134-144 BUN/Creatinine Ratio 18 (Normal) Range: 9-23 eGFR If Africn Am 82 mL/min/1.73 (Normal) eGFR If NonAfricn Am 71 mL/min/1.73 (Normal) Creatinine, Serum 0.92 mg/dL (Normal) Range: 0.57-1.00 BUN 17 mg/dL (Normal) Range: 6-24 Glucose, Serum 84 mg/dL (Normal) Range: 65-99 :01 CBC WITH MANUAL DIFF Comments: PATIENT NOT FASTINGPERFORMED BY: WILLIAN Vendormate Rirpgh4298 [facility] [id number] Information: [id number] (79327) Immature Grans (Abs) 0.0 {x10E3/uL} (Normal) Range: 0.0-0.1 Immature Granulocytes 0 % (Normal) Baso (Absolute) 0.0 {x10E3/uL} (Normal) Range: 0.0-0.2 Eos (Absolute) 0.1 {x10E3/uL} (Normal) Range: 0.0-0.4 Monocytes(Absolute) 0.4 {x10E3/uL} (Normal) Range: 0.1-0.9 Lymphs (Absolute) 2.0 {x10E3/uL} (Normal) Range: 0.7-3.1 Neutrophils (Absolute) 3.0 {x10E3/uL} (Normal) Range: 1.4-7.0 Basos 0 % (Normal) Eos 1 % (Normal) Monocytes 8 % (Normal) Lymphs 36 % (Normal) Neutrophils 55 % (Normal) Platelets 240 {x10E3/uL} (Normal) Range: 150-379 RDW 13.8 % (Normal) Range: 12.3-15.4 MCHC 34.1 g/dL (Normal) Range: 31.5-35.7 MCH 31.1 pg (Normal) Range: 26.6-33.0 MCV 91 fL (Normal) Range: 79-97 Hematocrit 41.0 % (Normal) Range: 34.0-46.6 Hemoglobin 14.0 g/dL (Normal) Range: 11.1-15.9 RBC 4.50 {x10E6/uL} (Normal) Range: 3.77-5.28 WBC 5.5 {x10E3/uL} (Normal) Range: 3.4-10.8 :19 Lipid Panel (32215) Comments: PATIENT NOT FASTINGPERFORMED BY: [employer]70 [facility] [id number] Information: [id number]; non-emergent till apt LDL/HDL Ratio 2.7 {ratio_units} (Normal) Range: 0.0-3.2 Comments: LDL/HDL Ratio Men Women 1/2 Avg.Risk 1.0 1.5 Av g.Risk 3.6 3.2 2X Avg.Risk 6.2 5.0 3X Avg.Risk 8.0 6.1 LDL Cholesterol Calc 172 mg/dL (Abnormal) Range: 0-99 VLDL Cholesterol Kenyon 21 mg/dL (Normal) Range: 5-40 HDL Cholesterol 63 mg/dL (Normal) Comments: According to ATP-III Guidelines, HDL-C >59 mg/dL is considered anegative risk factor for CHD. Triglycerides 105 mg/dL (Normal) Range: 0-149 Cholesterol, Total 256 mg/dL (Abnormal) Range: 100-199 43-Fnj-26469:03 CBC With Differential/Platelet Comments: PATIENT WAS FASTINGPERFORMED BY: Vendormate Pvtigm4496 [facility] [id number] Information: [id number] Immature Grans (Abs) 0.0 {x10E3/uL} (Normal) Range: 0.0-0.1 Immature Granulocytes 0 % (Normal) Baso (Absolute) 0.0 {x10E3/uL} (Normal) Range: 0.0-0.2 Eos (Absolute) 0.1 {x10E3/uL} (Normal) Range: 0.0-0.4 Monocytes(Absolute) 0.4 {x10E3/uL} (Normal) Range: 0.1-0.9 Lymphs (Absolute) 2.0 {x10E3/uL} (Normal) Range: 0.7-3.1 Neutrophils (Absolute) 3.5 {x10E3/uL} (Normal) Range: 1.4-7.0 Basos 0 % (Normal) Eos 1 % (Normal) Monocytes 7 % (Normal) Lymphs 34 % (Normal) Neutrophils 58 % (Normal) Platelets 251 {x10E3/uL} (Normal) Range: 150-379 RDW 13.7 % (Normal) Range: 12.3-15.4 MCHC 32.9 g/dL (Normal) Range: 31.5-35.7 MCH 30.2 pg (Normal) Range: 26.6-33.0 MCV 92 fL (Normal) Range: 79-97 Hematocrit 43.8 % (Normal) Range: 34.0-46.6 Hemoglobin 14.4 g/dL (Normal) Range: 11.1-15.9 RBC 4.77 {x10E6/uL} (Normal) Range: 3.77-5.28 WBC 6.0 {x10E3/uL} (Normal) Range: 3.4-10.8 79-Dwc-83261:03 Comp. Metabolic Panel (14) Comments: PATIENT WAS FASTINGPERFORMED BY: [facility] Mxtfqn1602 [facility] [id number] ALT (SGPT) 41 [iU]/L (Abnormal) Range: 0-32 AST (SGOT) 43 [iU]/L (Abnormal) Range: 0-40 Alkaline Phosphatase, S 119 [iU]/L (Abnormal) Range: 39-117 Bilirubin, Total 0.3 mg/dL (Normal) Range: 0.0-1.2 A/G Ratio 2.0 (Normal) Range: 1.1-2.5 Globulin, Total 2.1 g/dL (Normal) Range: 1.5-4.5 Albumin, Serum 4.3 g/dL (Normal) Range: 3.5-5.5 Protein, Total, Serum 6.4 g/dL (Normal) Range: 6.0-8.5 Calcium, Serum 10.0 mg/dL (Normal) Range: 8.7-10.2 Carbon Dioxide, Total 28 mmol/L (Normal) Range: 18-29 Chloride, Serum 97 mmol/L (Normal) Range: 97-108 Potassium, Serum 3.8 mmol/L (Normal) Range: 3.5-5.2 Sodium, Serum 141 mmol/L (Normal) Range: 134-144 BUN/Creatinine Ratio 17 (Normal) Range: 9-23 eGFR If Africn Am 80 mL/min/1.73 (Normal) eGFR If NonAfricn Am 69 mL/min/1.73 (Normal) Creatinine, Serum 0.95 mg/dL (Normal) Range: 0.57-1.00 BUN 16 mg/dL (Normal) Range: 6-24 Glucose, Serum 94 mg/dL (Normal) Range: 65-99 70-Yaz-50849:03 Lipid Panel With LDL/HDL Comments: PATIENT WAS FASTINGPERFORMED BY: [employer] Epvytz5842 [facility] [id number] Ratio LDL/HDL Ratio 3.1 {ratio_units} Range: 0.0-3.2 (Normal) Comments: LDL/HDL Ratio Men Women 1/2 Avg.Risk 1.0 1.5 Av g.Risk 3.6 3.2 2X Avg.Risk 6.2 5.0 3X Avg.Risk 8.0 6.1 LDL Cholesterol Calc 180 mg/dL (Abnormal) Range: 0-99 VLDL Cholesterol Kenyon 25 mg/dL (Normal) Range: 5-40 HDL Cholesterol 59 mg/dL (Normal) Comments: According to ATP-III Guidelines, HDL-C >59 mg/dL is considered anegative risk factor for CHD. Triglycerides 127 mg/dL (Normal) Range: 0-149 Cholesterol, Total 264 mg/dL (Abnormal) Range: 100-199 15-Nov-2014 Vitamin D, 25-Hydroxy 26.2 ng/mL (Abnormal) Comments: PATIENT WAS FASTINGPERFORMED BY: [employer] Couzfj6246 [facility] [id number] 9:03 Range: 30.0-100.0 Comments: Vitamin D deficiency has been defined by the [place] of[place]icine and an Endocrine Society practice guideline as alevel of serum 25-OH vitamin D less than 20 ng/mL (1,2).The Endocrine Society went on to further define vitamin Dinsufficiency as a level between 21 and 29 ng/mL (2).1. IOM ([place]). 2010. Dietary reference intakes for calcium and D. [place]: The National Academies Press.2. Taylor MF, Herman NC, Obdulio SOUSA, et al. Evaluation, treatment, and prevention of vitamin D deficiency: an Endocrine Society clinical practice guideline. JCEM. 2010; 96(7):1911-30. 40-Tlx-797974:15 METABOLIC PANEL, Comments: PATIENT NOT FASTINGPERFORMED BY: [facility]6370 [facility] [id number] Information: [id number] [facility] (05486) ALT (SGPT) 52 [iU]/L (Abnormal) Range: 0-32 AST (SGOT) 41 [iU]/L (Abnormal) Range: 0-40 Alkaline Phosphatase, S 135 [iU]/L (Abnormal) Range: 39-117 Bilirubin, Total 0.3 mg/dL (Normal) Range: 0.0-1.2 A/G Ratio 2.0 (Normal) Range: 1.1-2.5 Globulin, Total 2.3 g/dL (Normal) Range: 1.5-4.5 Albumin, Serum 4.6 g/dL (Normal) Range: 3.5-5.5 Protein, Total, Serum 6.9 g/dL (Normal) Range: 6.0-8.5 Calcium, Serum 10.1 mg/dL (Normal) Range: 8.7-10.2 Carbon Dioxide, Total 28 mmol/L (Normal) Range: 18-29 Chloride, Serum 97 mmol/L (Normal) Range: 97-108 Potassium, Serum 4.2 mmol/L (Normal) Range: 3.5-5.2 Sodium, Serum 142 mmol/L (Normal) Range: 134-144 BUN/Creatinine Ratio 29 (Abnormal) Range: 9-23 eGFR If Africn Am 95 mL/min/1.73 (Normal) eGFR If NonAfricn Am 83 mL/min/1.73 (Normal) Creatinine, Serum 0.82 mg/dL (Normal) Range: 0.57-1.00 BUN 24 mg/dL (Normal) Range: 6-24 Glucose, Serum 91 mg/dL (Normal) Range: 65-99 50-Pix-658377:15 DONALDO (ANTINUCLEAR ANTIBODY) Comments: PATIENT NOT FASTINGPERFORMED BY: Tilt [facility]ueSpotSw[facility] Hospital [id number] (21851) DONALDO Direct Negative (Normal) 13-Qzy-872198:15 ANTI-LIVER/KIDNEY MICROSOMAL Comments: PATIENT NOT FASTINGPERFORMED BY: Tilt Sleep NumberNovant Health Row[facility] [id number] ANTIBODY (26914) Thyroid Peroxidase (TPO) Ab 14 {IU/mL} (Normal) Range: 0-34 23-Zsy-893934:15 ASM (ANTI SMOOTH MUSCLE Comments: PATIENT NOT FASTINGPERFORMED BY: CB [facility] Jsxeze9050 [facility] [place] [id number] ANTIBODY) (57673) Actin (Smooth Muscle) Antibody 8 {Units} (Normal) Range: 0-19 Comments: Negative 0 - 19 Weak positive 20 - 30 Moderate to strong positive >30 . Actin Antibodies are found in 52-85% of patients with autoimmune hepatitis or chronic active hepatitis and in 22% of patients with primary biliary cirrhosis. 28-Ojs-621655:15 CERULOPLASMIN (79413) Comments: PATIENT NOT FASTINGPERFORMED BY: CB [facility] Trcvdb5029 [facility] [place] [id number] Ceruloplasmin 31.9 mg/dL (Normal) Range: 16.0-45.0 07-Ibs-542752:15 FERRITIN (15931) Comments: PATIENT NOT FASTINGPERFORMED BY: CB [facility] Rrzttl3142 [facility] [id number] Ferritin, Serum 423 ng/mL (Abnormal) Range: 15-150 19-Ivo-452299:15 TRANSFERRIN (09706) Comments: PATIENT NOT FASTINGPERFORMED BY: CB [facility] Tkqwal6477 [facility] [place] [id number] Transferrin 277 mg/dL (Normal) Range: 200-370 12-Cxo-281253:15 ANTIMITOCHONDRIAL ANTIBODY Comments: PATIENT NOT FASTINGPERFORMED BY: CB [facility] Eqtfuz2905 [facility] [place] [id number] (87212) Atypical pANCA <1:20 {titer} (Normal) Comments: The atypical pANCA pattern has been observed in a significantpercentage of patients with ulcerative colitis, primary sclerosingcholangitis and autoimmune hepatitis. Perinuclear (P-ANCA) <1:20 {titer} (Normal) Comments: The presence of positive fluorescence exhibiting P-ANCA or C-ANCApatterns alone is not specific for the diagnosis of Deidra'sGranulomatosis (WG) or microscopic polyangiitis. Decisions abouttreatment sh ould not be based solely on ANCA IFA results. TheInternational ANCA Group Consensus recommends follow up testing ofpositive sera with both VT-3 and MPO- ANCA enzyme immunoassays. Asmany as 5% serum samp les are positive only by EIA.Ref. AM J Clin Pathol 1999;111:507-513. Cytoplasmic (C-ANCA) <1:20 {titer} (Normal) 97-Xkk-105288:15 HEPATITIS PANEL (32628) Comments: PATIENT NOT FASTINGPERFORMED BY: [facility]6370 [facility] [id number] Hep C Virus Ab <0.1 {s/co_ratio} (Normal) Range: 0.0-0.9 Comments: Negative: < 0.8 Indeterminate: 0.8 - 0.9 Positive: > 0.9 . In order to reduce the incidence of a false positive result, the CDC recommends that all s/co ratios between 1.0 and 10.9 be confirmed by a more specific supplemental or PCR testing. [facility] offers HCV Ab w/Reflex to Verification test #[id number]. Hep B Core Ab, IgM Negative (Normal) HBsAg Screen Negative (Normal) Hep A Ab, IgM Negative (Normal) 44-Eft-575221:15 HEPATIC FUNCTION PANEL Comments: PATIENT NOT FASTINGPERFORMED BY: [facility]6370 [facility] [id number] (15074) Bilirubin, Direct 0.10 mg/dL (Normal) Range: 0.00-0.40 :52 Protein Electro, Random Urine Comments: PATIENT WAS FASTINGPERFORMED BY: [facility] [place] [address] [id number] Please note: SPRCS (Normal) Comments: Protein electrophoresis scan will follow via computer, mail, orcourier delivery. M-Manny, % Not Observed % (Normal) Gamma Globulin, U 4.4 % (Normal) Beta Globulin, U 10.9 % (Normal) Dnavl-0-Derwzcwv, U 8.4 % (Normal) Xmnmo-5-Onscxdtf, U 5.7 % (Normal) Albumin, U 70.6 % (Normal) Protein,Total,Urine 10.0 mg/dL (Normal) Range: 0.0-15.0 :52 Protein Electro.,S Comments: PATIENT WAS FASTINGPERFORMED BY: [facility]6370 [facility] [id number] Please note: SPR (Normal) Comments: Protein electrophoresis scan will follow via computer, mail, orcourier delivery. A/G Ratio 1.5 (Normal) Range: 0.7-2.0 Globulin, Total 2.6 g/dL (Normal) Range: 2.0-4.5 M-Manny Not Observed g/dL (Normal) Gamma Globulin 0.9 g/dL (Normal) Range: 0.5-1.6 Beta Globulin 0.9 g/dL (Normal) Range: 0.6-1.3 Ioqar-2-Wmvgfowm 0.7 g/dL (Normal) Range: 0.4-1.2 Eqoyj-1-Wycmldtm 0.2 g/dL (Normal) Range: 0.1-0.4 Albumin 4.0 g/dL (Normal) Range: 3.2-5.6 :52 METABOLIC PANEL, BASIC Comments: PATIENT WAS FASTINGPERFORMED BY: [facility] CookiesNovant Health Row[facility] Center [id number] Information: [id number],2ND ORDER NO DRAW F EE (44930) Calcium, Serum 9.9 mg/dL (Normal) Range: 8.7-10.2 Carbon Dioxide, Total 30 mmol/L (Abnormal) Range: 18-29 Chloride, Serum 94 mmol/L (Abnormal) Range: 97-108 Potassium, Serum 4.1 mmol/L (Normal) Range: 3.5-5.2 Sodium, Serum 141 mmol/L (Normal) Range: 134-144 BUN/Creatinine Ratio 23 (Normal) Range: 9-23 eGFR If Africn Am 79 mL/min/1.73 (Normal) eGFR If NonAfricn Am 68 mL/min/1.73 (Normal) Creatinine, Serum 0.96 mg/dL (Normal) Range: 0.57-1.00 BUN 22 mg/dL (Normal) Range: 6-24 Glucose, Serum 85 mg/dL (Normal) Range: 65-99 :52 METABOLIC PANEL, COMPREHENSIVE Comments: PATIENT WAS FASTINGPERFORMED BY: [facility] CookiesNovant Health Row[facility] Center [id number]; non- emergent till apt tomorrow (91122) ALT (SGPT) 95 [iU]/L (Abnormal) Range: 0-32 AST (SGOT) 50 [iU]/L (Abnormal) Range: 0-40 Alkaline Phosphatase, S 145 [iU]/L (Abnormal) Range: 39-117 Bilirubin, Total 0.4 mg/dL (Normal) Range: 0.0-1.2 A/G Ratio 2.0 (Normal) Range: 1.1-2.5 Globulin, Total 2.2 g/dL (Normal) Range: 1.5-4.5 Albumin, Serum 4.4 g/dL (Normal) Range: 3.5-5.5 Protein, Total, Serum 6.6 g/dL (Normal) Range: 6.0-8.5 Calcium, Serum 9.5 mg/dL (Normal) Range: 8.7-10.2 Carbon Dioxide, Total 31 mmol/L (Abnormal) Range: 18-29 Chloride, Serum 94 mmol/L (Abnormal) Range: 97-108 Potassium, Serum 3.8 mmol/L (Normal) Range: 3.5-5.2 Sodium, Serum 139 mmol/L (Normal) Range: 134-144 BUN/Creatinine Ratio 24 (Abnormal) Range: 9-23 eGFR If Africn Am 74 mL/min/1.73 (Normal) eGFR If NonAfricn Am 64 mL/min/1.73 (Normal) Creatinine, Serum 1.01 mg/dL (Abnormal) Range: 0.57-1.00 BUN 24 mg/dL (Normal) Range: 6-24 Glucose, Serum 89 mg/dL (Normal) Range: 65-99 :52 PARATHORMONE (90456) Comments: PATIENT WAS FASTINGPERFORMED BY: Nokter70 [facility]ekapakNovant Health [facility] [id number] PTH, Intact 31 pg/mL (Normal) Range: 15-65 :52 TSH (70893) Comments: PATIENT WAS FASTINGPERFORMED BY: Nokter70 [facility] [id number] TSH 1.540 {uIU/mL} (Normal) Range: 0.450-4.500 1-Ocs-306210:38 URINE CALCIUM MARIELA TIMED Comments: PATIENT NOT FASTINGPERFORMED BY: [facility] CookiesNovant Health Row[facility] Center [id number] Information: [id number] START- 05/22/14@8AM 24 Hour (91194) Calcium, Urine 24hr 359.1 {mg/24_hr} (Abnormal) Range: 100.0-300.0 Calcium, Urine 26.6 mg/dL (Normal) :52 Vitamin D Hydroxy (19686) Comments: PATIENT WAS FASTINGPERFORMED BY: [facility] Vgizcn8762 [facility] [id number] Vitamin D, 25-Hydroxy 40.3 ng/mL (Normal) Range: 30.0-100.0 Comments: Vitamin D deficiency has been defined by the [place] of[place]icine and an Endocrine Society practice guideline as alevel of serum 25-OH vitamin D less than 20 ng/mL (1,2).The Endocrine Society went on to further define vitamin Dinsufficiency as a level between 21 and 29 ng/mL (2).1. IOM ([place] of [place]). 2010. Dietary reference intakes for calcium and D. [place]: The National Academies Press.2. Taylor MF, Herman MAGAÑA, Obdulio SOUSA, et al. Evaluation, treatment, and prevention of vitamin D deficiency: an Endocrine Society clinical practice guideline. JCEM. 2010; 96(7):1911-30. 6-Fag-573350:23 HPV automatic Comments: Source.............Cervical;EndocervicalNo. of containers..01 CYTYC Thin Prep VialPATIENT NOT FASTINGPERFORMED BY: WB [facility] Shap[address]egz[address] [id number] BY: =Madeleine Hudson (48286) [facility] Ynxuskylil792 [facility] [id number] Information: [id number] HPV, high-risk Negative Comments: This high-risk HPV test detects thirteen high- risk types(16/18/31/33/35/39/45/51/52/56/58/59/68) without differentiation. . (Normal) Note: PAPSMR (Normal) Comments: The Pap smear is a screening test designed to aid in the detection ofpremalignant and malignant conditions of the uterine cervix. It is not adiagnostic procedure and should not be used as the sole mean s of detectingcervical cancer. Both false-positive and false-negative reports do occur. .This liquid based ThinPrep(R) pap test w as screened with theuse of an image guided system. See Note . (Normal) DIAGNOSIS: SPRCS (Normal) Comments: NEGATIVE FOR INTRAEPITHELIAL LESION AND MALIGNANCY.CELLULAR CHANGES ASSOCIATED WITH ATROPHY ARE PRESENT.Satisfactory for evaluation. Endocervical component may not bedistinguished in cases of atrophy.V 73.81 ; Special screening examination, human papillomavirus [HPV]Jakub Randhawa, [employer] (ASCP) [id number] ABDOMEN/PELVIS WITHOUT CONT Radiology Report See Note (Normal) Comments: PROCEDURE: CT ABDOMEN AND PELVIS WITHOUT CONTRAST REASON FOR EXAM: Female, 52 years old. Hematuria RADIATION DOSAGE (If Supplied By Facility): CTDIvol = ( 6.31 ) mGy, DLP=( 293.62 ) mGycm TECHNIQUE : Transaxial images were obtained from the dome of thediaphragmto the symphysis pubis without oral contrast, and without intravenouscontrast. COMPARISON: None. FINDINGS:The visualized lung bases are unremarkable. Normal unenhanced liver. Normal gallbladder and extrahepatic biliarysystem. Normal unenhanced spleen. Normal pancreas. Normal bilateral adrenal glands. Normal size of the right kidney. There is no right renal mass. Thereareno right renal calculi. There is no right hydronephrosis. Normalvisualized right ureter. Normal size of the left kidney. There is no left renal mass. There i s a6mm stone. There is no left hydronephrosis. Normal visualized leftureter. Normal visualized stomach. Normal small intestine. Diffuse fecalretention after colon. The appendix is not visualized. T here is no demonstrated peritoneal fluid. Normal abdominal aorta. Normal inferior vena cava. Normalretroperitoneum. Normal urinary bladder. There is no pelvic mass lesion orlymphadenopathy.There is n o pelvic fluid. Normal abdominal wall. Normal osseous structures. IMPRESSION:Possible left renal stone. No hydronephrosis.Fecal retention of the colon. Signed:Silvano Araiza D.O.April 20, 2012 at 7:22:05 PM [id number] Signed IF/IF If you are the referring physician and would like to consult with theradiologist who provided this interpretation, please contact Silvano Araiza D.O.at . If this radiologist is unavailable, you will be directedto another radiologist to assist. If you are a patient with a question regarding this report, pleasecontactyour referring physician directly. Professional Interpretation Provided By: [employer], Phone , These documents contain legally protected and confidential healthinformation intended only for the use of the individual or entity namedabove. If you are not the intended recipient, you are hereby notifiedthatany disclosure, copying, distribution, or other use of these documents isstrictly prohibited. If you h ave received this information in error,pleasenotify the sender immediately and arrange for the return or destructionofthese documents. Dictated on 04/20/12 1649 by Marissa Araiza DOranscribed on 04/20/121924 by ITS IMPORTSign by Silvano Araiza DO on 04/20/121925 Sign by: Silvano Araiza DO 28-Nhw-60598:52 Urinalysis, Office (81563) UA - BILIRUBIN Negative (Normal) UA - BLOOD Non Hemolyzed Moderate (Normal) UA - GLUCOSE Negative (Normal) UA - KETONES Negative mg/dL (Normal) UA - LEUKOCYTE ESTERASE Negative (Normal) UA - NITRITE Negative (Normal) UA - PH 5.0 (Normal) UA - PROTEIN Negative mg/dL (Normal) UA - SPECIFIC GRAVITY 1.025 (Normal) URINE UROBILINGN MARIELA TIMED Normal mg/dL (Normal) 89-Clr-60916:54 URINE DAVID CULTURE-MARIELA COL Comments: PATIENT NOT FASTINGPERFORMED BY: [facility]CoJFK [facility] CenterVfosdb5433 [facility] [id number] Information: SRC:UR [id number] COUNT (52507) Result 1 NG36 (Normal) Comments: No growth in 36 - 48 hours. Urine Culture,Comprehensive Final report (Normal) :57 HPV automatic Comments: Source.............Cervical;EndocervicalNo. of containers..01 CYTYC Thin Prep VialPATIENT NOT FASTINGPERFORMED BY: [facility] [place] [id number] BY: =Madeleine Hudson (46214) [facility] [place] [id number] Information: [id number] HPV, high-risk Negative Comments: This high-risk HPV test detects thirteen high- risk types(16/18/31/33/35/39/45/51/52/56/58/59/68) without differentiation. . (Normal) Note: PAPSMR (Normal) Comments: The Pap smear is a screening test designed to aid in the detection ofpremalignant and malignant conditions of the uterine cervix. It is not adiagnostic procedure and should not be used as the sole mean s of detectingcervical cancer. Both false-positive and false-negative reports do occur. .This liquid based ThinPrep(R) pap test w as screened with theuse of an image guided system. See Note . (Normal) DIAGNOSIS: SPRCS (Normal) Comments: NEGATIVE FOR INTRAEPITHELIAL LESION AND MALIGNANCY.CELLULAR CHANGES ASSOCIATED WITH ATROPHY ARE PRESENT.Satisfactory for evaluation. Endocervical component may not bedistinguished in cases of atrophy.V 72.31 ; Routine gynecological examinationMaria Esther De Santiago Cast Shell Grinder (ASCP) :48 Microscopic Examination Comments: PATIENT WAS FASTINGPERFORMED BY: [employer] [id number] [facility] [id number] Bacteria Few (Normal) Mucus Threads Present (Normal) Crystal Type Calcium Oxalate (Normal) Crystals Present (Abnormal) Epithelial Cells (non renal) >10 {/hpf} (Abnormal) Range: 0 - 10 RBC 0-3 {/hpf} (Normal) Range: 0 - 3 WBC 0-5 {/hpf} (Normal) Range: 0 - 5 :48 RHEUMATOID FACTOR-QUANT (42733) Comments: PATIENT WAS FASTINGPERFORMED BY: [employer] [id number] [facility] [id number] RA Latex Turbid. 12.8 {IU/mL} (Normal) Range: 0.0-13.9 :48 DONALDO (ANTINUCLEAR ANTIBODY) Comments: PATIENT WAS FASTINGPERFORMED BY: [facility] Lwfmiw[address] [facility] [place] [id number] ([id number]) DONALDO Direct Negative (Normal) :48 IRON (55965) Comments: PATIENT WAS FASTINGPERFORMED BY: [facility] Lxufcd0958 [address] RoadDublin [place] [id number] Iron, Serum 48 ug/dL (Normal) Range: 35-155 :48 Vitamin D Hydroxy (86111) Comments: PATIENT WAS FASTINGPERFORMED BY: [employer] Ygthln[address] [facility] [place] [id number] Vitamin D, 25-Hydroxy 60.8 ng/mL (Normal) Range: 30.0-100.0 Comments: Vitamin D deficiency has been defined by the [place] of[facility] and an Endocrine Society practice guideline as alevel of serum 25-OH vitamin D less than 20 ng/mL (1,2).The Endocrine Society went on to further define vitamin Dinsufficiency as a level between 21 and 29 ng/mL (2).1. IOM ([place] of Medicine). 2010. Dietary reference intakes for calcium and D. [place]: The National Academies Press.2. Taylor MF, Herman MAGAÑA, Obdulio SOUSA, et al. Evaluation, treatment, and prevention of vitamin D deficiency: an Endocrine Society clinical practice guideline. JCEM. 2010; 96(7):1911-30. :48 VITAMIN B-12 (CYANOCOBALAMIN) Comments: PATIENT WAS FASTINGPERFORMED BY: [facility] Nkmbrl[address] [facility] HospitalD[facility] [place] [id number] ([id number]) Vitamin B12 1022 pg/mL (Abnormal) Range: 211-946 :48 T4, FREE (THYROXINE) (56274) Comments: PATIENT WAS FASTINGPERFORMED BY: [facility] Uvsptu9897 [address] RoadDublin [place] [id number] T4,Free(Direct) 1.14 ng/dL (Normal) Range: 0.82-1.77 :48 T3, FREE (TRIDOTHYRONINE) (06700) Comments: PATIENT WAS FASTINGPERFORMED BY: [facility]6370 [facility] [id number] Triiodothyronine,Free,Serum 2.5 pg/mL (Normal) Range: 2.0-4.4 :48 LIPID PANEL (08005) Comments: PATIENT WAS FASTINGPERFORMED BY: [place] [id number] [facility] [id number] LDL/HDL Ratio 2.2 {ratio_units} (Normal) Range: 0.0-3.2 LDL Cholesterol Calc 138 mg/dL (Abnormal) Range: 0-99 VLDL Cholesterol Kenyon 21 mg/dL (Normal) Range: 5-40 HDL Cholesterol 64 mg/dL (Normal) Comments: According to ATP-III Guidelines, HDL-C >59 mg/dL is considered anegative risk factor for CHD. Triglycerides 107 mg/dL (Normal) Range: 0-149 Cholesterol, Total 223 mg/dL (Abnormal) Range: 100-199 :48 URINALYSIS, W/ MICRO (58579) Comments: PATIENT WAS FASTINGPERFORMED BY: [facility]6370 [facility] [id number] Microscopic Examination See below: (Normal) Nitrite, Urine Negative (Normal) Urobilinogen,Semi-Qn 0.2 mg/dL (Normal) Range: 0.0-1.9 Bilirubin Negative (Normal) Occult Blood 2+ (Abnormal) Ketones Negative (Normal) Glucose Negative (Normal) Protein Negative (Normal) WBC Esterase 1+ (Abnormal) Appearance Clear (Normal) Urine-Color Yellow (Normal) pH 6.0 (Normal) Range: 5.0-7.5 Specific Watson 1.023 (Normal) Range: 1.005-1.030 :48 TSH (30954) Comments: PATIENT WAS FASTINGPERFORMED BY: [facility] [id number] TSH 1.250 {uIU/mL} (Normal) Range: 0.450-4.500 :48 CBC WITH MANUAL DIFF Comments: PATIENT WAS FASTINGPERFORMED BY: LabCoJFK Medical CenterDntbym5527 [facility] [id number] Information: [id number] ([id number]) Immature Grans (Abs) 0.0 {x10E3/uL} (Normal) Range: 0.0-0.1 Immature Granulocytes 0 % (Normal) Range: 0-2 Baso (Absolute) 0.0 {x10E3/uL} (Normal) Range: 0.0-0.2 Eos (Absolute) 0.1 {x10E3/uL} (Normal) Range: 0.0-0.4 Monocytes(Absolute) 0.4 {x10E3/uL} (Normal) Range: 0.1-1.0 Lymphs (Absolute) 1.6 {x10E3/uL} (Normal) Range: 0.7-4.5 Neutrophils (Absolute) 5.0 {x10E3/uL} (Normal) Range: 1.8-7.8 Basos 0 % (Normal) Range: 0-3 Eos 1 % (Normal) Range: 0-7 Monocytes 6 % (Normal) Range: 4-13 Lymphs 22 % (Normal) Range: 14-46 Neutrophils 71 % (Normal) Range: 40-74 Platelets 213 {x10E3/uL} (Normal) Range: 140-415 RDW 14.5 % (Normal) Range: 12.3-15.4 MCHC 33.7 g/dL (Normal) Range: 31.5-35.7 MCH 31.0 pg (Normal) Range: 26.6-33.0 MCV 92 fL (Normal) Range: 79-97 Hematocrit 41.5 % (Normal) Range: 34.0-46.6 Hemoglobin 14.0 g/dL (Normal) Range: 11.1-15.9 RBC 4.52 {x10E6/uL} (Normal) Range: 3.77-5.28 WBC 7.1 {x10E3/uL} (Normal) Range: 4.0-10.5 15-Rpo-73028:48 METABOLIC PANEL, COMPREHENSIVE Comments: PATIENT WAS FASTINGPERFORMED BY: LabCoJFK Medical CenterHvlqjt6461 [facility] [id number] (52525) ALT (SGPT) 24 [iU]/L (Normal) Range: 0-40 AST (SGOT) 29 [iU]/L (Normal) Range: 0-40 Alkaline Phosphatase, S 98 [iU]/L (Normal) Range: 25-150 Bilirubin, Total 0.3 mg/dL (Normal) Range: 0.0-1.2 A/G Ratio 1.8 (Normal) Range: 1.1-2.5 Globulin, Total 2.4 g/dL (Normal) Range: 1.5-4.5 Albumin, Serum 4.2 g/dL (Normal) Range: 3.5-5.5 Protein, Total, Serum 6.6 g/dL (Normal) Range: 6.0-8.5 Calcium, Serum 9.4 mg/dL (Normal) Range: 8.7-10.2 Carbon Dioxide, Total 26 mmol/L (Normal) Range: 20-32 Chloride, Serum 104 mmol/L (Normal) Range: 97-108 Potassium, Serum 4.7 mmol/L (Normal) Range: 3.5-5.2 Sodium, Serum 143 mmol/L (Normal) Range: 134-144 BUN/Creatinine Ratio 28 (Abnormal) Range: 9-23 eGFR If Africn Am 90 mL/min/1.73 (Normal) eGFR If NonAfricn Am 78 mL/min/1.73 (Normal) Creatinine, Serum 0.87 mg/dL (Normal) Range: 0.57-1.00 BUN 24 mg/dL (Normal) Range: 6-24 Glucose, Serum 88 mg/dL (Normal) Range: 65-99 20-Hkq-883878:24 LIPID PANEL (54865) Comments: PATIENT WAS FASTINGPERFORMED BY: [facility] [id number] Information: [id number] HDL Cholesterol 56 mg/dL (Normal) Comments: According to ATP-III Guidelines, HDL-C >59 mg/dL is considered anegative risk factor for CHD. LDL Cholesterol Calc 130 mg/dL (Abnormal) Range: 0-99 LDL/HDL Ratio 2.3 {ratio_units} (Normal) Range: 0.0-3.2 VLDL Cholesterol Kenyon 16 mg/dL (Normal) Range: 5-40 Triglycerides 82 mg/dL (Normal) Range: 0-149 Cholesterol, Total 202 mg/dL (Abnormal) Range: 100-199 63-Jcb-943630:30 CHEST, PA AND LATERAL Radiology Report See Note (Normal) Comments: Exam Number: [id number] CHEST, PA AND LATERAL PA and lateral chest radiographs are obtained. Comparison is madewith the prior examination dated March 11, 2005. HISTORYThis is a 49-year-old female pa tient with left-sided chest painfollowing a fall. FINDINGSThe heart is not enlarged. There is evidence of hyperinflation.There is a mild degree of pectus excavatum deformity. There is noevidence of pu lmonary consolidation. There is no evidence ofpneumothorax. No obvious rib fracture is seen at this time. There is a 4 mm calcification overlying the left kidney. Left renalcalculus should be ruled o ut. IMPRESSION1. Hyperinflation. No acute abnormality is seen.2. There is a 4mm calcification overlying the left kidney. Leftrenal calculus should be ruled out. Reported By: SILVERIO BE 20-Pkg-667025:11 CBCD,SMEAR DIFF Comments: RESULTS FAXED 10/17/09 1239 AMBIKA CRAWFORD. BAND 1 % (Normal) Range: 0-5 EOS 4 % (Normal) Range: 0-5 LYMPH 19 % (Normal) Range: 19-41 MONOCYTE 4 % (Normal) Range: 0-10 PLT EST SeeNote (Normal) Comments: Result: ADEQUATE RED CELL MORPH SeeNote {NORMAL} (Normal) Comments: Result: NORM C+C ABSOLUTE NEUT 4.2 3/uL (Normal) Range: 2.0-7.7 CELLS COUNTED 100 (Normal) HCT 38.3 % (Normal) Range: 37-47 HGB 12.9 g/dL (Normal) Range: 12.0-16.0 MCH 31.7 pg (Normal) Range: 27.0-32.0 MCHC 33.7 g/dL (Normal) Range: 32-36 MCV 93.9 fL (Normal) Range: 81-99 PLT 216 K/mm3 (Normal) Range: 150-450 RBC 4.08 {M/mm3} (Abnormal) Range: 4.2-5.4 RDW 13.1 % (Normal) Range: 11.6-14.6 SEGS 72 % (Abnormal) Range: 47-70 WBC 6.7 K/mm3 (Normal) Range: 4.4-11.0 30-Rzt-927277:11 COMP METABOLIC ALK P 61 U/L (Normal) Range: 50-136 ALT 28 U/L (Normal) Range: 12-78 AST 18 U/L (Normal) Range: 15-37 CL 103 mmol/L (Normal) Range: 98-107 CO2 31.0 mmol/L (Normal) Range: 21.0-32.0 GAP 9 (Normal) Range: 5-15 K 4.5 mmol/L (Normal) Range: 3.5-5.1 NA 143 mmol/L (Normal) Range: 136-145 T BILI 0.30 mg/dL (Normal) Range: 0.00-1.00 A/G 1.0 {RATIO} (Normal) Range: 0.9-2.4 ALB 3.4 g/dL (Normal) Range: 3.4-5.0 BUN 20 mg/dL (Abnormal) Range: 7-18 BUN/CRE 22.2 {RATIO} (Abnormal) Range: 10-20 CA 8.9 mg/dL (Normal) Range: 8.5-10.1 CREAT,SERUM 0.9 mg/dL (Normal) Range: 0.6-1.0 EST GFR 71 mL/min (Normal) EST GFR - AA 86 mL/min (Normal) GLOB 3.3 g/dL (Normal) Range: 2.7-4.2 GLU 76 mg/dL (Normal) Range: 70-110 T PROT 6.7 g/dL (Normal) Range: 6.4-8.2 60-Wtm-203734:11 D-DIMER QUANT <200 ng/mL (Normal) Comments: NORMAL D-Dimer level indicates no DVT or PE. 80-Rkk-800639:11 TSH 0.82 {uIU/mL} (Normal) Range: 0.358-3.74 Plan of Care Name Dates Details Instructions Hypercholesteremia : Follow up in 6 months Indication: Hypercholesteremia Hypercholesteremia : Reviewed Lab Indication: Hypercholesteremia Pruritus : Follow up if no improvement or if symptoms worsen Indication: Pruritus CONTACT DERMATITIS AND OTHER ECZEMA DUE TO PLANTS (EXCEPT FOOD) : Eprescribed prescriptions (G8553) Indication: CONTACT DERMATITIS AND OTHER ECZEMA DUE TO PLANTS (EXCEPT FOOD) Well woman exam with routine gynecological exam : *Well Female Maintenance (SMC) Indication: Well woman exam with routine gynecological exam Well woman exam with routine gynecological exam : Pap/Pelvic/Bimanual/Rectal/Breast Exam was done. Indication: Well woman exam with routine gynecological exam Hypercholesteremia : Follow up in 6 months Indication: Hypercholesteremia Hypercholesteremia : Continue Current Prescription(s) Indication: Hypercholesteremia Hypercholesteremia : Reviewed Lab Indication: Hypercholesteremia Nonsmoker : Eprescribed prescriptions (G8553) Indication: Nonsmoker Hypercholesteremia : Follow up in 7months- gen med Indication: Hypercholesteremia Osteoporosis (Renamed from OP (osteoporosis)) : Reviewed Lab Indication: Osteoporosis (Renamed from OP (osteoporosis)) Osteoporosis (Renamed from OP (osteoporosis)) : Reviewed Diagnostic Tests Indication: Osteoporosis (Renamed from OP (osteoporosis)) Hypercholesteremia : Reviewed Lab Indication: Hypercholesteremia Vitamin D deficiency : Reviewed Lab Indication: Vitamin D deficiency Malignant neoplasm of breast (female) : Reviewed Diagnostic Tests Indication: Malignant neoplasm of breast (female) Hypercholesteremia : Cholesterol mgmt Indication: Hypercholesteremia Vitamin D deficiency : Eprescribed prescriptions (G8553) Indication: Vitamin D deficiency Hypercholesteremia : Eprescribed prescriptions (G8553) Indication: Hypercholesteremia Hypercholesteremia : Reviewed Lab Indication: Hypercholesteremia Hypercholesteremia : Cholesterol mgmt Indication: Hypercholesteremia Hypercholesteremia : Cholesterol mgmt Indication: Hypercholesteremia Hematuria : Reviewed Keg Filler Letter- work up neg and bengign Indication: Hematuria Elevated liver function tests : Reviewed Keg Filler Letter- stopped statin and follow Indication: Elevated liver function tests Elevated liver function tests : Reviewed Lab Indication: Elevated liver function tests Hyperlipidemia : Follow up in 4 months Indication: Hyperlipidemia Hyperlipidemia : Eprescribed prescriptions (G8553) Indication: Hyperlipidemia Rash (Renamed from Cutaneous eruption) : Follow up in 6 months Indication: Rash (Renamed from Cutaneous eruption) Rash (Renamed from Cutaneous eruption) : Contact Dermatitis: rash Indication: Rash (Renamed from Cutaneous eruption) Rash (Renamed from Cutaneous eruption) : Eprescribed prescriptions (G8553) Indication: Rash (Renamed from Cutaneous eruption) Rash (Renamed from Cutaneous eruption) : Follow up in 2 weeks Indication: Rash (Renamed from Cutaneous eruption) Rash (Renamed from Cutaneous eruption) : Allergies: allergy Indication: Rash (Renamed from Cutaneous eruption) Rash (Renamed from Cutaneous eruption) : Eprescribed prescriptions (G8553) Indication: Rash (Renamed from Cutaneous eruption) Hyperlipidemia : *Cholesterol - Nonprescription Treatment Indication: Hyperlipidemia Hyperlipidemia : Cholesterol mgmt Indication: Hyperlipidemia Hyperlipidemia : *Cholesterol - Medication Side Effects Indication: Hyperlipidemia Hyperlipidemia : Eprescribed prescriptions (G8553) Indication: Hyperlipidemia Screening for breast cancer : Eprescribed prescriptions (G8553) Indication: Screening for breast cancer Pain of right forearm : Eprescribed prescriptions (G8553) Indication: Pain of right forearm Hyperlipidemia : High Cholesterol (Hypercholesterolemia) *: cholesterol Indication: Hyperlipidemia Hyperlipidemia : Eprescribed prescriptions (G8553) Indication: Hyperlipidemia Hyperlipidemia : Eprescribed prescriptions (G8553) Indication: Hyperlipidemia Hyperlipidemia : Diet, Exercise, and Wt loss Indication: Hyperlipidemia Osteoporosis (Renamed from OP (osteoporosis)) : Eprescribed prescriptions (G8553) Indication: Osteoporosis (Renamed from OP (osteoporosis)) Well woman exam with routine gynecological exam : *Colon Cancer Screening Indication: Well woman exam with routine gynecological exam Well woman exam with routine gynecological exam : *Well Female Maintenance (KF) Indication: Well woman exam with routine gynecological exam Well woman exam with routine gynecological exam : Pap/Pelvic/Bimanual/Rectal/Breast Exam was done. Indication: Well woman exam with routine gynecological exam CONTACT DERMATITIS AND OTHER ECZEMA DUE TO PLANTS (EXCEPT FOOD) : Poison Amy Education Indication: CONTACT DERMATITIS AND OTHER ECZEMA DUE TO PLANTS (EXCEPT FOOD) CONTACT DERMATITIS AND OTHER ECZEMA DUE TO PLANTS (EXCEPT FOOD) : Contact Dermatitis: Brief Version *: skin Indication: CONTACT DERMATITIS AND OTHER ECZEMA DUE TO PLANTS (EXCEPT FOOD) Anxiety : Follow up if no improvement or if symptoms worsen Indication: Anxiety CONTACT DERMATITIS AND OTHER ECZEMA DUE TO PLANTS (EXCEPT FOOD) : Poison Amy Education Indication: CONTACT DERMATITIS AND OTHER ECZEMA DUE TO PLANTS (EXCEPT FOOD) Well woman exam : Self breast exam Indication: Well woman exam Well woman exam : *Colon Cancer Screening Indication: Well woman exam Well woman exam : *Well Female Maintenance (KF) Indication: Well woman exam Well woman exam : Pap/Pelvic/Bimanual/Rectal/Breast Exam was done. Indication: Well woman exam Anxiety : *Antidepressant Usage Indication: Anxiety Hypercholesteremia : High Cholesterol (Hypercholesterolemia) *: blood Indication: Hypercholesteremia Acute sinusitis, unspecified : Antibiotic Usage Education - Female Indication: Acute sinusitis, unspecified Acute sinusitis, unspecified : URI Symptoms Indication: Acute sinusitis, unspecified Acute sinusitis, unspecified : URI treament Indication: Acute sinusitis, unspecified Planned Observations CALCIFIDIOL (16577) VIT D 25Indication: Vitamin D deficiency On: :42 Request HEPATIC FUNCTION PANEL (72278)Indication: Hypercholesteremia On: :42 Request HEPATIC FUNCTION PANEL (74172)Indication: BMI 22.0-22.9, adult On: :36 Request LIPOPROTEIN, BLD, BY NMR (54843)Indication: Hypercholesteremia On: :35 Request LIPID PANEL (06100)Indication: Hypercholesteremia On: 0-Ldm-553730:00 Request FERRITIN (19153)Indication: Elevated liver function tests On: 58-Qlm-294521:08 Request Comments: to be drawn about 06/14/2016 URINE DAVID CULTURE-IDENTIFICATN (64770)Indication: Hematuria On: 13-Ead-959956:16 Request Vitamin D Hydroxy (20381)Indication: Vitamin D deficiency On: :01 Request LIPID PANEL (64351)Indication: Hyperlipidemia On: 0-Yqq-661624:29 Request HEPATIC FUNCTION PANEL (22876)Indication: Elevated liver function tests On: 7-Frl-626910:16 Request Comments: in 4 weeks Vitamin D Hydroxy (31052)Indication: Vitamin D deficiency On: :02 Request CALCIUM SERUM (41857)Indication: Vitamin D deficiency On: :02 Request Vitamin D Hydroxy (15147)Indication: Osteoporosis (Renamed from OP (osteoporosis)) On: :27 Request CBC with auto diff (76415)Indication: Elevated liver enzymes On: :26 Request METABOLIC PANEL, COMPREHENSIVE (09325)Indication: Elevated liver enzymes On: :24 Request LIPID PANEL (67226)Indication: Hyperlipidemia On: :23 Request Magnesium (56577)Indication: Abnormal blood chemistry On: 49-Umv-259235:17 Request Metabolic Panel, Basic (36747)Indication: Abnormal blood chemistry On: 35-Tqy-884957:17 Request Magnesium (66629)Indication: Hypercalciuria On: :10 Request Metabolic Panel, Basic (33706)Indication: Hypercalciuria On: :10 Request SPEP (12932)Indication: Osteoporosis (Renamed from OP (osteoporosis)) On: 90-Qhz-283443:26 Request UPEP (15390)Indication: Osteoporosis (Renamed from OP (osteoporosis)) On: 60-Lrn-132964:26 Request CBC W/AUTO DIFF WBC (12112)Indication: Malignant neoplasm of breast (female) On: :55 Request METABOLIC PANEL, COMPREHENSIVE (36345)Indication: Malignant neoplasm of breast (female) On: :55 Request LIPID PANEL (74971)Indication: Hypercholesteremia On: :53 Request Thin prep Pap (00097)Indication: Well woman exam with routine gynecological exam On: :33 Request Thin prep Pap (71053)Indication: Well woman exam On: 61-Pnt-88469:21 Request URINALYSIS (54742)Indication: Hematuria On: 57-Hck-492498:40 Request URINE DAVID CULTURE-IDENTIFICATN (21792)Indication: Hematuria On: 33-Mtg-455987:40 Request D-Dimer (19408)Indication: Chest pain On: :19 Request Comments: stat TSH (47930)Indication: Chest pain On: :18 Request METABOLIC PANEL, COMPREHENSIVE (54117)Indication: Chest pain On: :18 Request CBC WITH MANUAL DIFF (04878)Indication: Chest pain On: :18 Request Planned Encounters Medical; Review Results - On: 11-Jun-2018 8:00 [facility] Lesly Cross DO, DO, Kathleen [facility]; 6 Month FU - On: 01-Oct-2018 7:00 [facility] Lesly Cross DO, DO, Kathleen Planned Procedures Solu -Medrol Injection, 125 mg On: 14-Jan-2018 Intent (J2930)By: Huong Arellano CNP DEXA SCAN AXIAL SKELETON (87424)By: On: 03-Nov-2017 Intent Lesly Cross DO, DO, Kathleen SCREENING DIGITAL TOMOSYNTHESIS OF On: 03-Nov-2017 Intent BREAST (25384)By: Tay TOLBERT, Comments: last dexa 05/08 Lesly Chisholm DO ELECTROCARDIOGRAM, COMPLETE (ECG) On: 29-Sep-2017 Intent (63513)By: Lesly Cross DO Comments: nsr no acute chg -- non specif st chg poor R wave progrssion Lesly Cross DO MAMMOGRAM BREAST BILATERAL SCREENING On: 09-Dec-2016 Intent DIGITAL (62590)By: Lesly Cross DO, DO, Kathleen Ultrasound - LiverBy: Yumiko GONZALEZ, On: 14-May-2016 Intent Wang Bone Density StudyBy: Yumiko GONZALEZ, On: 12-Mar-2016 Intent Wang BILATERAL MAMMOGRAMS (99918)By: Aravind On: 13-Nov-2015 Intent Shauna TOLBERT Radiology - Forearm - RightBy: Fast On: 25-Sep-2015 Shauna Marroquin DO Radiology - Elbow - RightBy: Fast On: 25-Sep-2015 Shauna Marroquin DO MAMMOGRAM, SCREENING, BOTH BREAST On: 15-Nov-2014 Intent (00849)By: Shauna Nazario DO EKG (16084)By: Shauna Nazario DO On: 15-Nov-2014 Intent Comments: ekg showed normal sinus rhythym, normal axis, no acute st/t wave changes Solu -Medrol Injection, 125 mg On: 08-Aug-2014 Intent (J2930)By: Shauna Nazario DO Comments: lot [id number] 7.[address] - AbdomenBy: Darleen Fuentes LPN On: 05-Jul-2014 Intent Comments: pre and post contrast with delayed images trough the liver Ultrasound - LiverBy: Shauna Nazario DO On: 07-Jun-2014 Intent A TDAP VACCINE >7 IM (42817)By: Aravind On: 27-Apr-2014 Shauna Marroquin DO Comments: lot [id number] L armroute imgiven by - VIS and/or ABN signed DEXA SCAN AXIAL SKELETON (88828)By: On: 27-Apr-2014 Intent Fast DO, Shauna A Solu -Medrol Injection, 125 mg On: 18-Jan-2014 Intent (J2930)By: Huong Arellano CNP Breast Diagnostic - BilateralBy: On: 20-Oct-2013 Intent Fast DO, Shauna A Solu -Medrol Injection, 125 mg On: 29-Jan-2013 Intent (J2930)By: Huong Arellano CNP Comments: lot # [id number] 2MLCHenderson TILTROTOR 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 Eprescribed prescriptions (G8553)By: On: 29-Jan-2013 Intent Huong Arellano CNP Solu -Medrol Injection, 125 mg On: 23-Dec-2012 Intent ([id number])By: Huong Arellano CNP Breast Screening - BilateralBy: Fast On: 13-Oct-[address] Intent [address] A [address] - Abdomen & Pelvis Stone On: 10-Apr-2012 Intent ProtocolBy: Aravind TOLBERT Shauna A DXA, BONE DENSITY, AXIAL SKELETON On: 10-Apr-2012 Intent ([id number])By: Aravind TOLBERT Shauna A FLU VAC, SPLIT, >3 YEARS, INTRAMUSC On: 10-Apr-2012 Intent ([id number])By: Elaine Gant Comments: gets them at work Eprescribed prescriptions ([id number])By: On: 14-Feb-2012 Intent Aravind TOLBERT Shauna A TDAP VACCINE >7 IM ([id number])By: On: 14-Feb-2012 Intent Elaine Gant Comments: declines updating MAMMOGRAM, SCREENING, BOTH BREASTS On: 29-Aug-2010 Intent ([id number])By: Cassie GONZALEZ, Jania Figueroa Stress EchocardiogramBy: Fast DO, On: 15-Jan-2010 Intent Shauna A Holter Monitor 24 hrsBy: Fast DO, On: 01-Dec-2009 Intent Shauna A Comments: do if sx persist off caffeine Echo CompleteBy: Fast DO, Shauna A On: 17-Oct-2009 Intent PFT - CompleteBy: Fast DO, Shauna A On: 17-Oct-2009 Intent Spirometry ([id number])By: Fast DO, On: 17-Oct-2009 Intent Shauna A Comments: good effort and curve mild obst Radiology - Chest- PA and LatBy: On: 17-Oct-2009 Intent Fast DO, Shauna A EKG ([id number])By: Elaine Gant On: 17-Oct-2009 Intent Comments: ekg showed normal sinus rhythym, normal axis, no acute st/t wave changes Planned Medications INJECTION, METHYLPREDNISOLONE SODIUM SUCCINATE, UP TO 125 MG Ordered: 23-Dec-2012 Pending Ciesa REGISTERED NURSE FIRST ASSISTANT, Maggy INJECTION, METHYLPREDNISOLONE SODIUM SUCCINATE, UP TO 125 MG Ordered: 29-Jan-2013 Pending Ciesa REGISTERED NURSE FIRST ASSISTANT, Maggy INJECTION, METHYLPREDNISOLONE SODIUM SUCCINATE, UP TO 125 MG Ordered: 18-Jan-2014 Pending Ciesa REGISTERED NURSE FIRST ASSISTANT, Maggy INJECTION, METHYLPREDNISOLONE SODIUM SUCCINATE, UP TO 125 MG Ordered: 08-Aug-2014 Pending Fast DO, Shauna A INJECTION, METHYLPREDNISOLONE SODIUM SUCCINATE, UP TO 125 MG Ordered: 14-Jan-2018 Pending Ciesa REGISTERED NURSE FIRST ASSISTANT, Maggy Instructions Name Dates Details BMI 22.0-22.9, adult : How to access health information online Indication: BMI 22.0-22.9, adult BMI 22.0-22.9, adult : How to access health information online - Detail Indication: BMI 22.0-22.9, adult BMI 22.0-22.9, adult : Patient Instructions Indication: BMI 22.0-22.9, adult CONTACT DERMATITIS AND OTHER ECZEMA DUE TO PLANTS (EXCEPT FOOD) : How to access health information online Indication: CONTACT DERMATITIS AND OTHER ECZEMA DUE TO PLANTS (EXCEPT FOOD) CONTACT DERMATITIS AND OTHER ECZEMA DUE TO PLANTS (EXCEPT FOOD) : How to access health information online - Detail Indication: CONTACT DERMATITIS AND OTHER ECZEMA DUE TO PLANTS (EXCEPT FOOD) CONTACT DERMATITIS AND OTHER ECZEMA DUE TO PLANTS (EXCEPT FOOD) : Patient Instructions Indication: CONTACT DERMATITIS AND OTHER ECZEMA DUE TO PLANTS (EXCEPT FOOD) Nonsmoker : How to access health information online Indication: Nonsmoker Nonsmoker : How to access health information online - Detail Indication: Nonsmoker Nonsmoker : Patient Instructions Indication: Nonsmoker Nonsmoker : How to access health information online Indication: Nonsmoker Nonsmoker : How to access health information online - Detail Indication: Nonsmoker Nonsmoker : Patient Instructions Indication: Nonsmoker Gastroenteritis : How to access health information online Indication: Gastroenteritis Gastroenteritis : How to access health information online - Detail Indication: Gastroenteritis Gastroenteritis : Patient Instructions Indication: Gastroenteritis Vitamin D deficiency : How to access health information online Indication: Vitamin D deficiency Vitamin D deficiency : How to access health information online - Detail Indication: Vitamin D deficiency Vitamin D deficiency : Patient Instructions Indication: Vitamin D deficiency Nonsmoker : How to access health information online Indication: Nonsmoker Nonsmoker : How to access health information online - Detail Indication: Nonsmoker Nonsmoker : Patient Instructions Indication: Nonsmoker Body mass index (BMI) 21.0-21.9, adult : How to access health information online Indication: Body mass index (BMI) 21.0-21.9, adult Body mass index (BMI) 21.0-21.9, adult : How to access health information online - Detail Indication: Body mass index (BMI) 21.0-21.9, adult Body mass index (BMI) 21.0-21.9, adult : Patient Instructions Indication: Body mass index (BMI) 21.0-21.9, adult Hyperlipidemia : How to access health information online Indication: Hyperlipidemia Hyperlipidemia : How to access health information online - Detail Indication: Hyperlipidemia Hyperlipidemia : Patient Instructions Indication: Hyperlipidemia Rash (Renamed from Cutaneous eruption) : How to access health information online Indication: Rash (Renamed from Cutaneous eruption) Rash (Renamed from Cutaneous eruption) : How to access health information online - Detail Indication: Rash (Renamed from Cutaneous eruption) Rash (Renamed from Cutaneous eruption) : Patient Instructions Indication: Rash (Renamed from Cutaneous eruption) Rash (Renamed from Cutaneous eruption) : How to access health information online Indication: Rash (Renamed from Cutaneous eruption) Rash (Renamed from Cutaneous eruption) : How to access health information online - Detail Indication: Rash (Renamed from Cutaneous eruption) Rash (Renamed from Cutaneous eruption) : Patient Instructions Indication: Rash (Renamed from Cutaneous eruption) Hyperlipidemia : How to access health information online Indication: Hyperlipidemia Hyperlipidemia : How to access health information online - Detail Indication: Hyperlipidemia Hyperlipidemia : Patient Instructions Indication: Hyperlipidemia Screening for breast cancer : How to access health information online Indication: Screening for breast cancer Screening for breast cancer : How to access health information online - Detail Indication: Screening for breast cancer Screening for breast cancer : Patient Instructions Indication: Screening for breast cancer Pain of right forearm : How to access health information online Indication: Pain of right forearm Pain of right forearm : How to access health information online - Detail Indication: Pain of right forearm Pain of right forearm : Patient Instructions Indication: Pain of right forearm Hyperlipidemia : How to access health information online Indication: Hyperlipidemia Hyperlipidemia : How to access health information online - Detail Indication: Hyperlipidemia Hyperlipidemia : Patient Instructions Indication: Hyperlipidemia Hyperlipidemia : How to access health information online Indication: Hyperlipidemia Hyperlipidemia : How to access health information online - Detail Indication: Hyperlipidemia Hyperlipidemia : Patient Instructions Indication: Hyperlipidemia Rash (Renamed from Cutaneous eruption) : Patient Instructions Indication: Rash (Renamed from Cutaneous eruption) Hyperlipidemia : Patient Instructions Indication: Hyperlipidemia Osteoporosis (Renamed from OP (osteoporosis)) : How to access health information online Indication: Osteoporosis (Renamed from OP (osteoporosis)) Osteoporosis (Renamed from OP (osteoporosis)) : How to access health information online - Detail Indication: Osteoporosis (Renamed from OP (osteoporosis)) Osteoporosis (Renamed from OP (osteoporosis)) : Patient Instructions Indication: Osteoporosis (Renamed from OP (osteoporosis)) Well woman exam with routine gynecological exam : How to access health information online Indication: Well woman exam with routine gynecological exam Well woman exam with routine gynecological exam : How to access health information online - Detail Indication: Well woman exam with routine gynecological exam Well woman exam with routine gynecological exam : Patient Instructions Indication: Well woman exam with routine gynecological exam CONTACT DERMATITIS AND OTHER ECZEMA DUE TO PLANTS (EXCEPT FOOD) : Patient Instructions Indication: CONTACT DERMATITIS AND OTHER ECZEMA DUE TO PLANTS (EXCEPT FOOD) CONTACT DERMATITIS AND OTHER ECZEMA DUE TO PLANTS (EXCEPT FOOD) : Patient Instructions Indication: CONTACT DERMATITIS AND OTHER ECZEMA DUE TO PLANTS (EXCEPT FOOD) Hematuria : Patient Instructions Indication: Hematuria Anxiety : Patient Instructions Indication: Anxiety Encounters Office Visit On: 02-Apr-2018 7:02 Encounter Reason: Follow up tests - Date: (03/24/18)., [ADDITIONAL REASON] Follow up for chronic medical issues - The patient feels well with minor complai End: 02-Apr-2018 7:43 nts, has good energy level and is sleeping well. Patient has been compliant with instructions. Current medication use: no side effects and compliant with dosing regimen. Patient sleeps 7 hours per night . Nutrition: balanced diet and supplemental vitamins. The medical issues the patient is following up for include All identified problems below, depression (anxiety), high blood pressure, high cholesterol and osteoporosis/osteopenia. weight :. Encounter Diagnosis: Nonsmoker, BMI 22.0-22.9, adult, Hypercholesteremia, Vitamin D deficiency, Other premature beats, Osteoporosis (Renamed from OP (osteoporosis)) [facility] Office Visit On: 14-Jan-2018 15:42 Encounter Reason: Rash - The skin rash is located on the left truncal area, left arm and right arm. Onset was 1 week(s) ago. The symptoms occur constantly. The patient describes this as worsening. Note for Rash: Worsen End: 14-Jan-2018 15:59 ing itching of arm and side and other handEncounter Diagnosis: BMI 21.0-21.9, adult, Nonsmoker, CONTACT DERMATITIS AND OTHER ECZEMA DUE TO PLANTS (EXCEPT FOOD) (692.6), Pruritus [facility] Office Visit On: 03-Nov-2017 9:48 Encounter Reason: Well Women Exam - The patient feels well with minor complaints, has good energy level and is sleeping well. Pap smear: date of last pap: (2013). Contraceptive history: The patient is not using any metho End: 03-Nov-2017 10:34 d of contraception at this time. Patient does not exercise. The patient reports that she does not perform monthly breast self exam. Calcium intake includes 1 serving milk daily. Previous evaluations: hy sterectomy. The patient denies the use of oral contraceptives or hormone replacement therapy.Encounter Diagnosis: BMI 21.0-21.9, adult, Nonsmoker, Well woman exam with routine gynecological exam, Encounter for screening mammogram for breast cancer (Renamed from Encounter for screening mammogram for malignant neoplasm of breast), Postmenopausal (Renamed from Postmenopausal status) [facility] Office Visit On: 29-Sep-2017 16:00 Encounter Reason: Follow up for chronic medical issues - The patient feels well with minor complaints, has good energy level and is sleeping well. Patient has been compliant with instructions. Current medication use: no End: 29-Sep-2017 17:12 side effects and compliant with dosing regimen. Patient sleeps 8 hours per night. Nutrition: balanced diet and supplemental vitamins. The medical issues the patient is following up for include All ident ified problems below, depression (anxiety), high blood pressure, high cholesterol and osteoporosis/osteopenia. weight :., [ADDITIONAL REASON] Follow up tests - Date: (09/22/17 labs). Encounter Diagnosis: Nonsmoker, BMI 21.0-21.9, adult, Hypercholesteremia, Vitamin D deficiency, Hypercalciuria, Osteoporosis (Renamed from OP (osteoporosis)) [facility] Office Visit On: 12-Sep-2017 8:58 Encounter Reason: Nausea - No changes in management were made at the last visit. Symptoms include nausea, while symptoms do not include emesis. Symptom onset was sudden 6 day(s) ago. There is no known event that preceded End: 12-Sep-2017 9:46 symptom onset. The symptoms occur constantly. Associated symptoms include diarrhea.Encounter Diagnosis: Diarrhea in adult patient, Gastroenteritis [facility] Office Visit On: 05-Mar-2017 7:55 Encounter Reason: Follow up tests - Date: (02/21 blood work)., [ADDITIONAL REASON] Follow up for chronic medical issues - The patient feels well with minor complai End: 05-Mar-2017 8:32 nts (feels like she is starving all the time on the phase 2 diet), has good energy level and is sleeping well. Patient has been compliant with instructions. Current medication use: no side effects and c ompliant with dosing regimen. Patient sleeps 8 hours per night. Nutrition: balanced diet and supplemental vitamins. The medical issues the patient is following up for include All identified problems below and depression (anxiety). weight :. Encounter Diagnosis: Nonsmoker, Body mass index (BMI) 21.0-21.9, adult, Vitamin D deficiency, Hypercholesteremia, Osteoporosis (Renamed from OP (osteoporosis)), Malignant neoplasm of breast (female), Influenza vaccination declined (Renamed from Refused influenza vaccine) [facility] Lab Order On: 21-Feb-2017 10:06 Encounter Diagnosis: Hypercholesteremia, Vitamin D deficiency, Hypercalciuria, Other premature beats End: 21-Feb-2017 10:10 [facility] Phone Encounter On: 09-Dec-2016 11:01 Encounter Diagnosis: Screening for breast cancer End: 09-Dec-2016 11:02 [facility] Office Visit On: 28-Oct-2016 9:10 Encounter Reason: Follow up testsEncounter Diagnosis: Body mass index (BMI) 21.0- 21.9, adult, Nonsmoker, Hypercholesteremia, Elevated liver function tests End: 28-Oct-2016 17:52 [facility] Office Visit On: 05-Sep-2016 7:06 Encounter Reason: Follow up for chronic medical issues - The patient feels well with minor complaints (has a little bit of a cold and cough since tu so I want her to look at throat.), has good energy level and is sleep End: 05-Sep-2016 10:27 ing well. Patient has been compliant with instructions. Current medication use: no side effects and compliant with dosing regimen. Patient sleeps 8 hours per night. Nutrition: balanced diet and suppleme ntal vitamins. The medical issues the patient is following up for include All identified problems below and depression (anxiety). weight :.Encounter Diagnosis: Nonsmoker, Body mass index (BMI) 21.0-21.9, adult, Elevated liver function tests, Hematuria (599.7), Hypercholesteremia, Vitamin D deficiency [facility] Phone Encounter On: 15-May-2016 15:00 Encounter Diagnosis: Elevated liver function tests End: 15-May-2016 15:10 [facility] Office Visit On: 14-May-2016 9:32 Encounter Reason: Follow up tests - Date: (05.08.16)., [ADDITIONAL REASON] Follow up for chronic medical issues - The patient feels well with no complaints End: 14-May-2016 16:02 , has good energy level and is sleeping well. Patient has been compliant with instructions. Current medication use: no side effects, compliant with dosing regimen and considered effective by patient. Connor all sleeps 6 hours per night. Nutrition: balanced diet, no supplemental vitamins & iron and low salt diet. The medical issues the patient is following up for include All identified problems below, cardiac issues (pvc), high cholesterol, osteoporosis/osteopenia and other (allergic rhinitis, anxiety). Encounter Diagnosis: Body mass index (BMI) 21.0-21.9, adult, Nonsmoker, Hyperlipidemia, Elevated liver function tests, Osteoporosis (Renamed from OP (osteoporosis)), Malignant neoplasm of breast (female), Hematuria (599.7) [facility] Phone Encounter On: 08-May-2016 11:56 Encounter Diagnosis: Hypercholesteremia, Vitamin D deficiency, Hematuria (599.7) End: 08-May-2016 12:01 [facility] Phone Encounter On: 12-Mar-2016 14:28 Encounter Diagnosis: Osteoporosis (Renamed from OP (osteoporosis)) End: 12-Mar-2016 14:31 [facility] Office Visit On: 18-Jan-2016 8:08 Encounter Reason: Follow up acute care visit - The patient feeling better since last seen and improving. Patient has been compliant with instructions. Impact of disease: no overall impact. The medical issues the patient End: 19-Jan-2016 15:11 is following up for include other (rash).Encounter Diagnosis: Rash (Renamed from Cutaneous eruption), Hyperlipidemia, Elevated liver function tests [facility] Office Visit On: 04-Jan-2016 8:55 Encounter Reason: Rash - Symptoms include skin bumps, pain (if touched and rubbed) and skin redness. The skin rash is located on the left leg and right leg. Onset was 1 day(s) ago. Onset followed new medication use (started 12/02 Lipitor). End: 04-Jan-2016 15:49 Encounter Diagnosis: Rash (Renamed from Cutaneous eruption) [facility] Office Visit On: 12-Dec-2015 13:30 Encounter Reason: Follow up tests - Date: (11/13/15 blood work).Encounter Diagnosis: Hyperlipidemia, Elevated liver enzymes End: 12-Dec-2015 16:27 [facility] Phone Encounter On: 28-Nov-2015 15:15 Encounter Diagnosis: Elevated liver function tests End: 28-Nov-2015 15:17 [facility] Office Visit On: 13-Nov-2015 8:21 Encounter Reason: Follow up for chronic medical issues - The patient feels well with no complaints, has good energy level and is sleeping well. Patient has been compliant with instructions. Current medication use: no mehran End: 13-Nov-2015 9:03 e effects and compliant with dosing regimen. Patient sleeps 6 hours per night. Nutrition: balanced diet, no supplemental vitamins & iron and low salt diet. The medical issues the patient is followin g up for include All identified problems below, cardiac issues (pvc), high cholesterol, osteoporosis/osteopenia and other (allergic rhinitis, anxiety). Note for Follow up for chronic medical issues: L abs werent done for today but pt is fasting this am.- still exercising and arm feels better with less exercise- she had pt and meloxicam has helped no routine premature beats getting lab today and tolerting indapamideEncounter Diagnosis: Screening for breast cancer, Hypercalciuria, Hypercholesteremia, Vitamin D deficiency, Osteoporosis (Renamed from OP (osteoporosis)), Other premature beats, Hematuria (599.7) [facility] Office Visit On: 25-Sep-2015 14:48 Encounter Reason: Elbow Tendonitis - Symptoms include elbow pain, decreased function, limited motion, painful motion and tenderness, while symptoms do not include redness, swelling or elbow weakness. Symptoms are located End: 25-Sep-2015 22:55 in the right elbow. The pain radiates to the right hand, right wrist, right forearm and right shoulder. The patient describes the pain as sharp and aching. The patient is right hand dominant. Onset was gradual 2 month(s) ago. The symptoms occur frequently. The patient describes symptoms as moderate in severity (to severe) and unchanged. Associated symptoms do not include chills, fever, numbness, ting ling or warmth. The patient is not currently being treated for this problem. Note for Elbow tendonitis: sitting stillis ok but moving always hurts lateraly epicondyle- ??mostly when working out- ie li fting weights - ibuprofen not helping much and aspercream- no weak or numb more achey- if supinates hurts - Encounter Diagnosis: Pain of right forearm [facility] Phone Encounter On: 25-Aug-2015 14:48 [facility] End: 25-Aug-2015 14:49 Office Visit On: 15-May-2015 8:33 Encounter Reason: Follow up for chronic medical issues - The patient feels well with no complaints, has good energy level and is sleeping well. Patient has been compliant with instructions. Current medication use: no mehran End: 15-May-2015 9:13 e effects and compliant with dosing regimen. Patient sleeps 6 hours per night. Nutrition: balanced diet, no supplemental vitamins & iron and low salt diet. The medical issues the patient is followin g up for include All identified problems below, cardiac issues (pvc), high cholesterol, osteoporosis/osteopenia and other (allergic rhinitis, anxiety). Note for Follow up for chronic medical issues: n o rashes and tolerating indapamide and bp is good, [ADDITIONAL REASON] Follow up, Laboratory Test Results - Date: (05/11/15). Encounter Diagnosis: Hyperlipidemia, Vitamin D deficiency, Osteoporosis (Renamed from OP (osteoporosis)), Hypercalciuria, Malignant neoplasm of breast (female) [facility] Phone Encounter On: 11-May-2015 7:58 Encounter Diagnosis: Hyperlipidemia, Vitamin D deficiency End: 11-May-2015 8:03 [facility] Office Visit On: 15-Nov-2014 8:08 Encounter Reason: Follow up for chronic medical issues - The patient feels well with minor complaints (rash on right arm), has good energy level and is sleeping well. Patient has been compliant with instructions. Current End: 15-Nov-2014 9:18 medication use: no side effects and compliant with dosing regimen. Patient sleeps 6 hours per night. Nutrition: balanced diet, no supplemental vitamins & iron and low salt diet. The medical issues the patient is following up for include All identified problems below, cardiac issues (pvc), high cholesterol, osteoporosis/osteopenia and other (allergic rhinitis, anxiety). Note for Follow up for chr onic medical issues: the previous rash hasnt come back this new rash looks like exposure- she feeling well - she keeping up on fluids and has changed alot for her chol, [ADDITIONAL REASON] Rash - Symptoms include rash. The patient describes the rash as red, nontender and itchy. The rash is located on the right arm. Onset was sudden 1 week(s) ago. Note for Rash: look s like exposure right arm tried calamine no help Encounter Diagnosis: Hyperlipidemia (272.4), screening, Hypercalciuria, Pruritus, Dermatitis, Elevated liver enzymes, Allergic reaction to drug, Osteoporosis (Renamed from OP (osteoporosis)) [facility] Office Visit On: 08-Aug-2014 11:49 Encounter Reason: Follow up acute care visit - The patient feels the same. Patient has been compliant with instructions. Current medication use: no side effects and compliant with dosing regimen. Patient sleeps 6 hours p End: 08-Aug-2014 21:34 er night. The medical issues the patient is following up for include All identified problems below and other (rash). Note for Follow up acute care visit: itchy rash- like before but in more places-nev er got completely rid of rash but got better- before started new drug- now on none and back on pred and getting some better- but we discussed has to go away completely with pred and gone formonth before restart med- no other topicals except eucerin lotion no other changes - no oral or vaginal lesionsEncounter Diagnosis: Rash (Renamed from Cutaneous eruption), Pruritus [facility] Phone Encounter On: 06-Jul-2014 18:13 Encounter Diagnosis: PVC, OTHER PREMATURE BEATS (427.69), Abnormal blood chemistry (790.6) End: 06-Jul-2014 18:17 [facility] Phone Encounter On: 05-Jul-2014 8:47 Encounter Diagnosis: Abnormal ultrasound End: 05-Jul-2014 8:54 [facility] Office Visit On: 01-Jul-2014 14:09 Encounter Reason: Follow up Meds - The patient feels well with minor complaints (hctz causing a rash), has good energy level and is sleeping well. Patient has been compliant with instructions. Current medication use: exp End: 05-Jul-2014 7:10 eriencing side effects and compliant with dosing regimen. Patient sleeps 7 hours per night.Encounter Diagnosis: Rash (Renamed from Cutaneous eruption), Allergic reaction to drug, Hypercalciuria [facility] Office Visit On: 07-Jun-2014 10:34 Encounter Reason: Follow up, Laboratory Test Results - Date: (06/03/14). Note for Follow up to discuss laboratory test results: has been off all supplments no tylenol and no etohEncounter Diagnosis: Hyperlipidemia (272.4), Elevated liver enzymes, End: 07-Jun-2014 22:48 Hypercalcemia, Hypercholesteremia (272.0), Hypercalciuria [facility] Phone Encounter On: 27-May-2014 9:28 Encounter Diagnosis: Unspecified Diagnosis, Hypercholesteremia (272.0), Hypercalcemia End: 27-May-2014 9:35 [facility] Office Visit On: 17-May-2014 9:36 Encounter Reason: Follow up tests - Date: (dexa). Note for Discuss procedure results: not drinking etoh much does take tylenol miminimize- and taking calcium and vit d - and walking routinelyEncounter Diagnosis: End: 17-May-2014 16:14 Osteoporosis (Renamed from OP (osteoporosis)), Hyperlipidemia (272.4), Hypercalcemia, Elevated liver enzymes [facility] Office Visit On: 27-Apr-2014 8:26 Encounter Reason: Well Women Exam - The patient feels well with no complaints, has good energy level and is sleeping well. Pap smear: history of abnormal pap (pre-cancerous cells and always repeats) and date of last pap: End: 28-Apr-2014 9:24 (03/2012). Contraceptive history: The patient is not using any method of contraception at this time. Patient exercises 3 - 4 times per week. The patient's libido is normal. The patient reports that she does not perform monthly breast self exam. Calcium intake includes 1200 mg with Vit D daily supplement and 2 serving(s) milk daily. Previous evaluations: hysterectomy (still has cervix and ovaries). Th e patient denies the use of oral contraceptives or hormone replacement therapy. breast cancer in first degree relative (personal hx of it). Menstruation: Last menstrual period date: (in menopause). Note for Well Women Exam: - is keeping up on breast cancer had mammo in october- and released from [facility] and has been almost 9 years- never did colonsoocpy that we sent for Encounter Diagnosis: Well Women Exam (V72.31)( Pap, Mammo, Routine Female and Dexa) (Renamed from Well Woman V72.31 (p,m,d)), SCREENING FOR HUMAN PAPILLOMAVIRUS (HPV) (V73.81), Breast Cancer (174.9), Hypercholesteremia (272.0), postmenopausal without estrogen [facility] Office Visit On: 18-Jan-2014 10:01 Encounter Reason: Rash - Symptoms include skin bumps, crusting and skin redness (i have what lookslike a bug bite, or a thorn in my leg). The skin rash is located on the left arm, left hand, left leg, left foot, right ar End: 18-Jan-2014 11:06 m, right hand, right leg and right foot. Onset was gradual (friday) 4 day(s) ago.Encounter Diagnosis: CONTACT DERMATITIS AND OTHER ECZEMA DUE TO PLANTS (EXCEPT FOOD) (692.6), Bug bite [facility] Phone Encounter On: 20-Oct-2013 17:11 Encounter Diagnosis: SCREENING FOR BREAST CANCER (V76.10) End: 20-Oct-2013 17:14 [facility] Office Visit On: 29-Jan-2013 6:55 Encounter Reason: Skin Problems - The onset of the skin problems has been sudden and they have been occurring in a persistent pattern for 1 day. The course has been increasing. The problem is characterized as a rash and End: 29-Jan-2013 8:26 itching. Lesions are described as red. The spots were first seen on the lower extremity. It spread to the upper extremity and the lower extremity. There has been associated itching.Encounter Diagnosis: CONTACT DERMATITIS AND OTHER ECZEMA DUE TO PLANTS (EXCEPT FOOD) (692.6) [facility] Office Visit On: 23-Dec-2012 10:10 Encounter Reason: Skin Problems - The onset of the skin problems has been sudden and they have been occurring in a persistent pattern for 1 week. The course has been increasing. The problem is characterized as a rash and End: 23-Dec-2012 10:28 itching. Lesions are described as red and raised above the skin. The spots were first seen on interdigitous areas. It spread to the trunk and the lower extremity. There has been associated itching.Encounter Diagnosis: CONTACT DERMATITIS AND OTHER ECZEMA DUE TO PLANTS (EXCEPT FOOD) (692.6), Anxiety (300.00) [facility] Phone Encounter On: 13-Oct-2012 9:49 Encounter Diagnosis: SCREENING FOR BREAST CANCER (V76.10) End: 13-Oct-2012 9:51 [facility] Office Visit On: 10-Apr-2012 8:15 Encounter Reason: Well Women Exam - The patient feels well with no complaints, has good energy level and is sleeping well. Pap smear: history of abnormal pap (pre-cancerous cells and always repeats) and date of last pap: End: 10-Apr-2012 8:56 (well over a year). Contraceptive history: The patient is not using any method of contraception at this time. Patient exercises 3 - 4 times per week. The patient's libido is normal. The patient reports that she does not perform monthly breast self exam. Calcium intake includes 1200 mg with Vit D daily supplement and 2 serving(s) milk daily. Previous evaluations: hysterectomy (still has cervix and ova curtis). The patient denies the use of oral contraceptives or hormone replacement therapy. breast cancer in first degree relative (personal hx of it). Note for Well Women Exam: had mammo this yearEncounter Diagnosis: Well Woman Exam (V72.31) (Pap,Mammo,Routine Female) (Renamed from Well Woman V72.31 (p,m)), Need for prophylactic vaccination and inoculation against influenza (V04.81), postmenopausal without estrogen, Hematuria (599.7) [facility] Office Visit On: 14-Feb-2012 11:00 Encounter Reason: Follow up, Laboratory Test Results - Date: (01/01/12). Current symptoms/reason for visit include/s Follow up visit with no current symptoms. Note for Follow up, Laboratory Test Results: no uti sx and h End: 16-Feb-2012 16:40 air about the same- still fair amount of stress and hot flashes would be willing to take something for hot flashes stress and anxiety- but cant take hormones due to her breast cancer hxz- dotic - little help with her shoulder but still issues =offered pt she will consider- she thinks she has better movement and less painEncounter Diagnosis: PREVENTION OF TETANUS (V03.7), Hypercholesteremia (272.0), Hematuria (599.7), Anxiety (300.00), Shoulder pain (719.41) [facility] Office Visit On: 01-Jan-2012 9:27 Encounter Reason: Shoulder Problem - Symptoms include shoulder pain, clicking and decreased range of motion, while symptoms do not include tenderness, frozen shoulder or shoulder stiffness. Symptoms are located in the le End: 02-Jan-2012 23:06 ft shoulder and right shoulder. There is no radiation. Onset was gradual 1 month(s) ago. The symptoms occur frequently. The patient describes symptoms as unchanged. Symptoms are exacerbated by elevation of the shoulder and external rotation of the shoulder, while symptoms are not exacerbated by motion at the shoulder or lifting. Associated symptoms include weakness in the arm, while associated symptom s do not include localized redness, numbness in the arm, pain in the arm, paresthesias, pain in the neck, chest pain or fever. The patient is not currently being treated for this problem. Note for Shou lder Problem: she has been off tamoxifen - but getting mammo every year- she hasnt had pap or breast exam so encourage- left shoulder no trauma but hurts when abducts -so cut weight down still hurts - no neck pain and no weak or numb or arm pain, [ADDITIONAL REASON] Hair loss - Symptoms include unexplained hair loss, while symptoms do not include localized hair loss or patchy hair loss. The hair loss has been noted to affect the scalp. Onset wa s gradual month(s) ago. There is no known event that preceded symptom onset. The patient describes this as moderate in severity and worsening. Associated symptoms include anxiety, while associated sympt oms do not include scalp irritation, scalp itching or scalp pain. The patient is not currently being treated for this problem. Note for Hair loss: she is exercising and losing weight has always had sousa ir loss issues but worse over last year- bowels normal- no fatigue- she hasnt had bald spots- getting thinner in general and losing more at time- mom always thin hair- plenty of stress - her duaghter just joined the [employer] Encounter Diagnosis: Hypercholesteremia (272.0), hair loss, Shoulder pain (719.41) [facility] Phone Encounter On: 29-Aug-2010 12:11 Encounter Diagnosis: Breast Cancer (174.9), Well Woman Exam (V72.31) (Pap,Mammo,Routine Female) (Renamed from Well Woman V72.31 (p,m)) End: 29-Aug-2010 12:13 [facility] Office Visit On: 15-Jan-2010 17:04 Encounter Reason: Follow up, Diagnostic Procedure Results - Diagnostic tests include other (holter monitor- on paper). Date: (12/11/09). Encounter Diagnosis: Palpitations(785.1), PVC, OTHER PREMATURE BEATS (427.69) End: 15-Jan-2010 17:59 [facility] Office Visit On: 01-Dec-2009 11:16 Encounter Reason: Follow up, Diagnostic Procedure Results - Diagnostic tests include chest X-ray and ECHO (in scanned documents- 10/20/09). Date: (10/19/09). , End: 03-Dec-2009 21:21 [ADDITIONAL REASON] Follow up, Laboratory Test Results - Date: (10/17/09). Note for Follow up, Laboratory Test Results: she is still getting fluttering and pounding in chest not pain- not sob- 2 cups coffee a day- said not having as much of sx now- no sx with exertion Encounter Diagnosis: Chest pain (786.59), Palpitations(785.1), Hypercholesteremia (272.0) [facility] Office Visit On: 17-Oct-2009 9:01 Encounter Reason: Chest pain - The onset of the pain has been gradual and has been occurring in a persistent pattern for 2 weeks. The pain is described as a mild pressure sensation (fluttering). The pain is described as End: 17-Oct-2009 11:12 being located in the left chest. The pain does not radiate. There are no precipitating factors. The symptoms have no aggravating factors. The symptoms have no relieving factors. The symptoms have been a ssociated with cough, while the symptoms have not been associated with abdominal pain ,breast pain ,dizziness ,emotional stress ,fever ,headache ,nausea ,neck pain ,palpitations ,shoulder pain ,syncope ,trauma ,vomiting ,wheezing or heartburn. There have been no previous evaluations. Note for Chest pain: off and on for long time until last two weeks has been daily- little pressure with little cough- taking tamoxifen- smoked years ago quit 6years- ago- minimal;- no sneezing or wheezing- -not with exertion- usually at rest- - occ little flutter- left side- no feverEncounter Diagnosis: Chest pain (786.59), Hypercholesteremia (272.0) [facility] Office Visit On: 19-May-2006 16:16 Encounter Reason: Sinusitis/ - The duration of the symptoms are 1 week The course has been constant. Associated features include The symptoms have been associated with cough ,nasal discharge/stuffy nose ,purulent nasal d End: 19-May-2006 16:31 ischarge ,sinus pain and sore throat (from coughing). No previous evaluations were reported. none reported. 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
--- OUTSIDE RECORDS SUMMARY | 2018-06-30 21:04 | XMS RPT_ITS | Continuity of Care Document ---
:1960 Author Organization [facility] Address [facility] [address] [address] Phone Care Team Providers Name Role Phone [...] day (can buy a pedometer at [employer]), -5 days of w [place] of 30 mins of cardiotraining (increase heartrate [...] 0 days Quantity: 30 {Tablet} Refills: 3 Ordered:02-Apr-2018 Loan Cross DO, DO, Kathleen Start : 02-Apr-2018 Active BIOTIN 5000, 5MG (Oral Capsule) 1 [...] : 04-Jan-2016 End : 14-Jan-2016 Inactive CALCIUM, [id number] (Oral Tablet) 1 tab qd (600-200 MG-UNIT) [...] days Quantity: 30 {Tablet} Refills: 2 Ordered:12-Sep-2017 Darleen Fuentes LPN Start : 25-Sep-2015 End : [...] Status: Inactive as of 01-Jul-2014 Vaccine for mcexbvjofv-xynoulu-czefftpvo with poliomyelitis (Z23, V06.3) Status: Inactive as of 01-Jul-2014 Well woman exam (Z00.00, V70.0) Status: Inactive as of 01-Jul-2014 Procedures Procedure Dates Details colonoscopy 08/08 , [place], 10 yrs, Completed hysterectomy 05/2006 Completed mammogram 12/11/15 WNL Completed Date Value Details 16-Dec-2017 SCREENING MAMM (CAD), BILAT Result: Comments: See Note; NOTES: [facility] Imaging Services [address] [address] SCREENING MAMM (CAD), BILAT MR#: [id number] Acct: [id number] Name: LUMA HERRING Rep #: [id number] : 1960 F 57 From: Silveroi eB MD PCP: Lesly Cross DO Status: REG CLI Study: SCREENING MAMM (CAD), BILAT Date of Exam: 12/16/17 Exam# [id number] Ordering Dr: Peri Cross DO MAMMOGRAPHY - [...] delay biopsy of a clinically suspicious abnormality. [id number] Electronically Signed: Silverio Be MD at 9:52 EDT Tel [phone], Service support , Fax CC: Lesly Cross DO Brush Washer: Signed 23-May-2016 Kidney and Bladder Result: Comments: See Note; NOTES: [facility] Imaging Services [address] [place] [address] Verdana 4d Kidney and Bladder MR#: [id number] Acct: [id number] Name: LUMA HERRING Rep #: [id number] : 1960 F 56 From: Dane Sampson DO PCP: Wang Calderon Status: REG CLI Study: Kidney and Bladder Date of Exam: 05/23/16 Exam# [id number] Ordering Dr: To Baltazar MD STUDY: RENAL ULTR ASOUND - COMPLETE REASON FOR EXAM: Female, 56 years old. Hematuria. TECHNIQUE: Ultrasound evaluation of the kidneys was performed with real-time and static sands-scale imaging. COMPARISON: CT of the demario mcconnell and, July 12, 2014. FINDINGS: RIGHT KIDNEY: [...] no interval change. Electronically Signed: Dane au, at 8:27 EST Tel [phone], Service support [phone], CC: To Baltazar MD; Wang Calderon Brush Washer: Signed 17-May-2016 Liver Result: Comments: See Note; NOTES: [facility] Imaging Services [address] [place] [address] Verdana 4d Liver MR#: [id number] Acct: [id number] Name: LUMA HERRING Rep #: [id number] : 1960 F 56 From: Fern Wang MD PCP: Wang Calderon Status: REG CLI Study: Liver Date of Exam: 05/17/16 Exam# [id number] Ordering Dr: Wang Calderon STUDY: ABDOMINAL ULTRASOUND [...] at 12:24 EST Tel , Service support [phone], CC: Wang Calderon Brush Washer: Signed 15-May-2016 Dexa Bone Density Study (HP) Result: Comments: See Note; NOTES: [facility] Imaging Services [address] [place] [address] Verdana 4d Dexa Bone Density Study (HP) MR#: [id number] Acct: [id number] Name: HALLIE HERRING Rep #: [id number] : 1960 F 56 From: Silverio Be MD PCP: Wang Calderon Status: REG CLI Study: Dexa Bone Density Study (HP) Date of Exam: 05/15/16 Exam# [id number] Ordering Dr: Lisette Calderon STUDY: DUAL ENERGY [...] Silverio Be MD at 9:01 EST Tel [phone], Service support [phone], CC: Wang Calderon Brush Washer: Signed 12-Dec-2015 ELECTROCARDIOGRAM, COMPLETE (ECG) (63622) Result: [MEASUREMENTS ANALYSIS] Date of Test: 12/12/2015 14:40:05; Heart Rate: 51; UT Interval: 150; QRS: 90; QT Interval: 444; Corrected QT Interval (QTc): 429; P Wave [place]eland: 72; QRS Wave [place]: 50; T Wave [place]: 40; Blood Pressure: 100/68 [ECG DIAGNOSTIC STATEMENTS] Date of Test: 12/12/2015 14:40:05; Summary: Sinus Bradycardia WITHIN NORMAL LIMITS 25-Sep-2015 Elbow min 3 Views Result: Comments: See Note; NOTES: [facility] Imaging Services [address] [place] [address] Verdana 4d Elbow min 3 Views MR#: [id number] Acct: [id number] Name: JACE HERRING Rep #: [id number] : 1960 F 55 From: Reymundo Harrison MD PCP: Shauna Nazario DO Status: REG CLI Study: Elbow min 3 Views Date of Exam: 09/25/15 Exam# [id number] Ordering Dr: Shauna Nazario DO STUDY: X-RAY [...] FACR at 15:53 EDT , Service support [phone], 77 RAD/Elbow min 3 Views IMPRESSION: Normal x-ray examination of the elbow. Electronically Signed: Reymundo Harrison MD, FACR at 15:53 EDT , Service support , CC: Shauna Nazario DO Brush Washer: Signed 25-Sep-2015 Forearm 2 Views Result: Comments: See Note; NOTES: [facility] Imaging Services [address] [place] [address] Verdana 4d Forearm 2 Views MR#: [id number] Acct: [id number] Name: HALLIE HERRING Rep #: [id number] : 1960 F 55 From: Reymundo Harrison MD PCP: Shauna Nazario DO Status: REG CLI Study: Forearm 2 Views Date of Exam: 09/25/15 Exam# [id number] Ordering Dr: Shauna Nazario DO BELIA DY: [...] FACR at 15:55 EDT , Service support [phone], RAD/Forearm 2 Views IMPRESS ION: Normal x-ray examination of the radius and ulna. Electronically Signed: Reymundo Harrison MD, FACR at 15:55 EDT , Service support [phone], CC: Shauna Nazario DO Brush Washer: Signed 12-Jul-2014 Abdomen W/WO IV Contrast Result: Comments: See Note; NOTES: [facility] Imaging Services [address] [place] [address] CAT Scan Report MR#: [id number] Acct: [id number] Name: LUMA HERRING Rep #: [id number] : 1960 F 54 From: Silverio Be MD PCP: Shauna Nazario DO Status: REG CLI Study: Abdomen W/WO IV Contrast Date of Exam: 07/12/14 Exam# [id number] Ordering Dr: Shauna Nazario DO STUDY: C [...] Silverio Be MD at 10:27 EST Tel [phone], Service support [phone], CC: Shauna Nazario DO Brush Washer: Signed 02-Jul-2014 Abdomen Limited Result: Comments: See Note; NOTES: [facility] Imaging Services [address] [place] [address] Ultrasound Report MR#: [id number] Acct: [id number] Name: LUMA HERRING Rep #: [id number] : 1960 F 54 From: Vito Odom DO PCP: Shauna Nazario DO Status: REG CLI Study: Abdomen Limited Date of Exam: 07/02/14 Exam# [id number] Ordering Dr: Shauna Nazario DO STUDY: ABDOMINAL [...] at 12:04 ES T , Service support [phone], CC: Shauna Nazario DO Brush Washer: Signed 11-May-2014 Dexa Bone Density Study (HP) Result: Comments: See Note; NOTES: [facility] Imaging Services [address] [place] [address] Bone Density Report MR#: [id number] Acct: [id number] Name: LUMA HERRING Rep #: [id number] : 1960 F 54 From: Silverio Be MD PCP: Shauna Nazario DO Status: REG CLI Study: Dexa Bone Density Study (HP) Date of Exam: 05/11/14 Exam# [id number] Ordering Dr: Shauna Nazario DO STUDY: DUAL [...] MD at 11:51 EST , Service support [phone], CC: Shauna Nazario DO Brush Washer: Signed Family History Unknown Family Member Name [...] smoker Vital Signs Date Test Result Details 97-Iyn-18493:05 Pulse 99 /min Comments: Pattern: Regular Respiration [...] kg/m2 Body Surface Area Calculated 1.65 m2 08-Olo-039474:43 Temperature 97.7 f Pulse 75 /min Comments: [...] Arm; Cuff Size: Standard Weight 118 lb :16 Pulse 74 /min Comments: Pattern: Regular Respiration [...] Cuff Location: Left Arm; Cuff Size: Large :16 Temperature 98.5 f Comments: Method: Oral Pulse [...] 0.00 cm Results Date Description Value Details 86-Rbt-957311:00 Cytology, Body Fluid / CSF Comments: Specimen Source: [facility] [address] [place], [place], [id number] CYTOLOGY,BF/CSF SEE PATHOLOGY REPORT Comments: Specimen submitted to Anatomical Pathology Department fortesting. (Normal) 46-Gzs-87112:00 Fluid/Washing See Note (Normal) Comments: [facility] [address] [place], [address] Comments: Patient: LUMA HERRING : 1960 (57/F) Acct Num: [id number] Phys: Giovanny GONZALEZ,Manny Unit Num: [id number] Loc: LABSPEC Specimen: [id number] Received: 01/15/18 - 1600 Spec Type: Fluid TISSUES TISSUES: Urine CYTOLOGY GROSS Received is 90 ml of cloudy gold/yellow fluid labeled with the patient's name and and designated per the requisition as urine. Submitted for cytology preparation. / RY:cc 01/16/18 TC:5 CPT: 51773 CYTOLOGY STUDY Slides are reviewed. The specimen consists of benign squamous cells, urothelial cells, inf lammatory cells, red blood cells and crystals. DIAGNOSIS CYTOLOGY Urine for cytology (cytospin): Negative for malignant cells. SJ:clarita 01/19/18 HEADER OPERATION: Not noted PRE-OP DIAGNOSIS: Hematuria TISSUE SUBMITTED: Urine for cytology Signed Quentin Munoz 01/19/18 <signature on file> 70-Kla-16296:00 BRCAssure Comprehensive Comments: PERFORMED BY: Time Warden TCY3713 Marbin JefferyENDLESS MOUNT[facility] SYSTEMS [id number] BY: [employer] [place] [id number] Test Preauthorization APPY (Normal) Comments: Preauthorization complete.AUTH# [id number] sample has been received and DNA extraction has been performed. 14-Wue-80266:00 Comprehensive BRCA1/2 Comments: PERFORMED BY: Time Warden LDY6164 Marbin JefferyTP [place] [id number] BY: [employer] [place] [id number] Analysis PDF . (Normal) Director Review Comment: (Normal) Comments: Shiela Le,Ph.D.,[facility] Result Comment: (Normal) Comments: No Pathogenic Variants [...] care providers to discuss this resultfurther at [phone].. Comments: Each gene sequence is interpreted independently [...] regions, is analyzed by nextgeneration sequencing. The mswbighe-reztzokc-syayfgzkvzmgpcpikr assay (MLPA) was perfor med to detect copynumber variations (deletions and duplications) in the CUEO9ybx BRCA2 genes. Synonymous variants and variants known [...] Available at : www.nccn.org.2010. Accessed 11.18.12.. 2. [place] Society of Clinical Oncology Policy StatementUpdate: Genetic Testing for Cancer Susceptibility. J ClinOncol. 2002Dec 05; 21(12):2397-406.. 3. Unique Morin al. MLPA screening in the BRCA1 gene from1,506 [place] hereditary breast cancer cases: noveldeletions, frequent involvement of exon 17, and occurrencein single early-onset cases. Hum Mutat. 200 8Jul;29(7):948-58.. 4. Danyelle Mckeon al. Clinical significance of largerearrangements in BRCA1 and BRCA2. Cancer. 2011;118(21):5210-6.. 5. Becca Stauffer. et al. Working Group of the [place] Collegeof Medical Genetics and Genomics Laboratory QualityAssurance Commitee. [facility] clinical laboratory standards fornext-generation sequencing. Shanna Med. 2013Sep;15(9):733-47.. Disclaimer: Unless stated oth erwise in this report, this test wasdeveloped and its performance characteristics determined by[employer]. It has not been cleared or approved by the U.S.Foodand Drug Administration. The FDA has determined that suchclearance or approval is not necessary. This test is usedfor clinical purposes. [employer], is regulated under theClinical Laboratory Improvement Amendments of 1988 (CLIA) asqualified to perform high-complexity clinical testing.. Specimen Type Comment: (Normal) Comments: BLOOD 24-Mar-20188:47 HEPATIC FUNCTION PANEL Comments: PATIENT WAS FASTINGPERFORMED BY: Kuton1447 [facility] [id number] BY: [employer] Lasxgn0139 [facility] [id number] (28164) ALT (SGPT) 25 [iU]/L (Normal) Range: 0-32 AST (SGOT) 28 [iU]/L (Normal) Range: 0-40 Alkaline Phosphatase 88 [iU]/L (Normal) Range: 39-117 Bilirubin, Direct 0.10 mg/dL (Normal) Range: 0.00-0.40 Bilirubin, Total 0.3 mg/dL (Normal) Range: 0.0-1.2 Albumin 4.5 g/dL (Normal) Range: 3.5-5.5 Protein, Total 7.0 g/dL (Normal) Range: 6.0-8.5 :47 LIPOPROTEIN, BLD, BY NMR Comments: PATIENT WAS FASTINGPERFORMED BY: [facility] Gsxbbedzbs5955 [facility] [id number] BY: WILLIAN [facility] Kthvwo[address] [facility] [id number] (38923) LP-IR Score 32 (Normal) Comments: INSULIN RESISTANCE MARKER <--Insulin Sensitive Insulin Resistant--> Percentile in Reference PopulationInsulin Resistance ScoreLP-IR Score Low 25th 50th 75th High <27 27 45 63 >63LP-IR Score is inaccurate if patient is non-fasting. .The LP-IR score is a laboratory developed i [facility] that has beenassociated with insulin resistance and [...] 1600 - 2000 Very High > 2000 22-Sep-20179:35 TSH (01817) Comments: PATIENT WAS FASTINGPERFORMED BY: TranscribeMe [facility] [id number] TSH 0.747 {uIU/mL} (Normal) Range: 0.450-4.500 :35 METABOLIC PANEL, COMPREHENSIVE Comments: PATIENT WAS FASTINGPERFORMED BY: [employer] [facility] [id number] (93212) ALT (SGPT) 33 [iU]/L (Abnormal) Range: 0-32 [...] Range: 65-99 :35 CBC W/AUTO DIFF WBC (36114) Comments: PATIENT WAS FASTINGPERFORMED BY: LabCoEssex County HospitalDlrjoi6806 [facility] [id number] Immature Grans (Abs) 0.0 {x10E3/uL} (Normal) Range: [...] 3.77-5.28 WBC 6.6 {x10E3/uL} (Normal) Range: 3.4-10.8 :35 CALCIFEDIOL (12871) Comments: PATIENT WAS FASTINGPERFORMED BY: DGITPlains Regional Medical CenterWerbja8701 [facility] [id number] Vitamin D, 25-Hydroxy 56.8 ng/mL (Normal) Range: 30.0-100.0 Comments: Vitamin D deficiency has been defined by the [place] of[place]icine and an Endocrine Society practice guideline as alevel of serum 25-OH vitamin D less than 20 ng/mL (1,2).The Endocrine Society went on to further define vitamin Dinsufficiency as a level between 21 and 29 ng/mL (2).1. IOM ([place] of Medicine). 2010. Dietary reference intakes for calcium and D. [place]: The National Academies Press.2. Taylor MF, Herman MAGAÑA, Obdulio SOUSA, et al. Evaluation, treatment, and prevention of vitamin D deficiency: an Endocrine Society clinical practice guideline. JCEM. 2010; 96(7):1911-30. :35 LIPID PANEL (42429) Comments: PATIENT WAS FASTINGPERFORMED BY: [facility] Uogscg6063 [facility] [id number]; ov 4/9 LDL/HDL Ratio 3.2 {ratio} (Normal) [...] Cholesterol, Total 207 mg/dL (Abnormal) Range: 100-199 7-Snz-291960:42 Microscopic Examination Comments: PATIENT WAS FASTINGPERFORMED BY: DGIT Lbvuby4629 [facility] [id number] Bacteria Few (Normal) Mucus Threads Present (Normal) Crystal Type Amorphous Sediment (Normal) Crystals Present (Abnormal) Epithelial Cells (non renal) 0-10 {/hpf} (Normal) Range: 0 - 10 RBC 0-2 {/hpf} (Normal) Range: 0 - 2 WBC 0-5 {/hpf} (Normal) Range: 0 - 5 4-Oqr-958457:42 URINALYSIS (16389) Comments: PATIENT WAS FASTINGPERFORMED BY: LabCoEssex County HospitalHzxilk4650 [facility] [id number] Microscopic Examination See below: (Normal) Comments: Microscopic was indicated and was performed. Nitrite, Urine Negative (Normal) Urobilinogen,Semi-Qn 0.2 mg/dL (Normal) Range: 0.2-1.0 Bilirubin Negative (Normal) Occult Blood 1+ (Abnormal) Ketones Negative (Normal) Glucose Negative (Normal) Protein Negative (Normal) WBC Esterase Negative (Normal) Appearance Cloudy (Abnormal) Urine-Color Yellow (Normal) pH 7.5 (Normal) Range: 5.0-7.5 Specific Marshall 1.020 (Normal) Range: 1.005-1.030 3-Spf-536871:42 CBC WITH MANUAL DIFF (77720) Comments: PATIENT WAS FASTINGPERFORMED BY: [facility] Mfadur6208 [facility] [id number] Immature Grans (Abs) 0.0 {x10E3/uL} (Normal) Range: [...] 3.77-5.28 WBC 5.0 {x10E3/uL} (Normal) Range: 3.4-10.8 4-Hnf-968770:42 Metabolic Panel, Comprehensive Comments: PATIENT WAS FASTINGPERFORMED BY: LabCoEs[facility] HospitalWvhnyu2423 [facility] [id number] (29639) ALT (SGPT) 26 [iU]/L (Normal) Range: 0-32 [...] Glucose, Serum 89 mg/dL (Normal) Range: 65-99 2-Zlm-046980:42 Lipid Panel (97143) Comments: PATIENT WAS FASTINGPERFORMED BY: [facility] [facility]Prom[facility]6370 [facility] [id number] LDL/HDL Ratio 2.0 {ratio_units} (Normal) Range: 0.0-3.2 [...] 190 mg/dL (Normal) Range: 100-199 :42 CALCIFIDIOL (58861) VIT D 25 Comments: PATIENT WAS FASTINGPERFORMED BY: [facility]Prom[facility]6370 [facility] [id number] Vitamin D, 25-Hydroxy 55.0 ng/mL (Normal) Range: 30.0-100.0 Comments: Vitamin D deficiency has been defined by the [place] ofMedicine and an Endocrine Society practice guideline as alevel of serum 25-OH vitamin D less than 20 ng/mL (1,2).The Endocrine Society went on to further define vitamin Dinsufficiency as a level between 21 and 29 ng/mL (2).1. IOM ([place] of Medicine). 2010. Dietary reference intakes for calcium and D. [place]: The National Academies Press.2. Taylor MF, Herman [place], Obdulio SOUSA, et al. Evaluation, treatment, and prevention of vitamin D deficiency: an Endocrine Society clinical practice guideline. JCEM. 2010; 96(7):1911-30. :51 HEPATIC FUNCTION PANEL Comments: PATIENT WAS FASTINGPERFORMED BY: [facility]Prom[facility]6370 [facility] [id number] (47107) ALT (SGPT) 25 [iU]/L (Normal) Range: 0-32 AST (SGOT) 28 [iU]/L (Normal) Range: 0-40 Alkaline Phosphatase, S 100 [iU]/L (Normal) Range: 39-117 Bilirubin, Direct 0.10 mg/dL (Normal) Range: 0.00-0.40 Bilirubin, Total 0.3 mg/dL (Normal) Range: 0.0-1.2 Albumin, Serum 4.2 g/dL (Normal) Range: 3.5-5.5 Protein, Total, Serum 6.6 g/dL (Normal) Range: 6.0-8.5 83-Cae-07757:45 HEPATIC FUNCTION PANEL Comments: PATIENT NOT FASTINGPERFORMED BY: LabCoEssex County HospitalFwribl9163 [facility] [id number] (45701) ALT (SGPT) 93 [iU]/L (Abnormal) Range: 0-32 AST (SGOT) 43 [iU]/L (Abnormal) Range: 0-40 Alkaline Phosphatase, 132 [iU]/L (Abnormal) Range: 39-117 S Bilirubin, Direct 0.07 mg/dL (Normal) Range: 0.00-0.40 Bilirubin, Total <0.2 mg/dL (Normal) Range: 0.0-1.2 Albumin, Serum 4.2 g/dL (Normal) Range: 3.5-5.5 Protein, Total, Serum 6.7 g/dL (Normal) Range: 6.0-8.5 41-Cmh-94313:00 CYTOSPIN ON FLUID See Note (Normal) Comments: [facility] N[address]zjas[address] [facility] [place], [address] Comments: Patient: LUMA HERRING : 1960 (56/F) Acct Num: [id number] Phys: Giovanny GONZALEZ,Manny Unit Num: [id number] Loc: LABSPEC Specimen: [id number] Received: 05/21/16 - 1054 Spec Ty pe: CYSPIN FL TISSUES TISSUES: CYTOLOGY GROSS Received is 70 ml of light yellow clear fluid labeled with the patient's name and and designated per the requisition as urine. Bradshaw bmitted for cytology preparation. /CC: cc 05/21/16 TC:5 CPT: 18950 CYTOLOGY STUDY Slides are reviewed. The specimen consists of benign squamous cells, urothelial cells, red blood cells, n eutrophils and lymphocytes. DIAGNOSIS CYTOLOGY Urine for cytology (cytospin): Negative for malignant cells. SJ:clarita 05/22/16 HEADER OPERATION: Not noted PRE-OP DIAGNOSIS: Benign essential microscopic hematuria TISSUE SUBMITTED: Urine for cytology Signed Quentinraymond Munoz 05/22/16 <signature on file> 89-Rdq-940278:30 Cytology, Body Fluid / CSF Comments: Specimen Source: [facility] [address] [place], [place], [address] CYTOLOGY,BF/CSF SEE PATHOLOGY REPORT (Normal) Comments: Specimen submitted to Anatomical Pathology Department [facility]. 29-Fmw-641477:40 CBC, PLATELETS & AUT DIFF Comments: PATIENT NOT FASTINGPERFORMED BY: [facility] Cnglxo8236 [facility] [id number] ([id number]) Immature Grans (Abs) 0.0 {x10E3/uL} (Normal) Range: [...] 3.77-5.28 WBC 5.9 {x10E3/uL} (Normal) Range: 3.4-10.8 88-Aiq-410877:40 HEPATIC FUNCTION PANEL Comments: PATIENT NOT FASTINGPERFORMED BY: FIXO Bannerman [facility] [id number] (39538) ALT (SGPT) 70 [iU]/L (Abnormal) Range: 0-32 AST (SGOT) 47 [iU]/L (Abnormal) Range: 0-40 Alkaline Phosphatase, S 114 [iU]/L (Normal) Range: 39-117 Bilirubin, Direct 0.09 mg/dL (Normal) Range: 0.00-0.40 Bilirubin, Total 0.3 mg/dL (Normal) Range: 0.0-1.2 Albumin, Serum 4.4 g/dL (Normal) Range: 3.5-5.5 Protein, Total, Serum 7.1 g/dL (Normal) Range: 6.0-8.5 :40 HEPATITIS PANEL (15038) Comments: PATIENT NOT FASTINGPERFORMED BY: DGIT Bannerman [facility] [id number] Hep C Virus Ab <0.1 {s/co_ratio} (Normal) Range: 0.0-0.9 Comments: Negative: < 0.8 Indeterminate: 0.8 - 0.9 Positive: > 0.9 . The CDC recommends that a positive HCV antibody result be followed up with a HCV Nucleic Acid Amplification test (159387). Hep B Core Ab, IgM Negative (Normal) HBsAg Screen Negative (Normal) Hep A Ab, IgM Negative (Normal) 61-Fxq-017545:40 ANTIMITOCHONDRIAL ANTIBODY Comments: PATIENT NOT FASTINGPERFORMED BY: DGITEssex County HospitalIxwdut1499 [facility] [id number] (09814) Mitochondrial (M2) Antibody <20.0 {Units} (Normal) Range: 0.0-20.0 Comments: Negative 0.0 - 20.0 Equivocal 20.1 - 24.9 Positive >24.9 . Mitochondrial (M2) Antibodies are found in 90-96% of patients with primary biliary cirrhosis. :40 TRANSFERRIN (29052) Comments: PATIENT NOT FASTINGPERFORMED BY: [employer] Cutyny0234 [facility] [id number] Transferrin 272 mg/dL (Normal) Range: 200-370 29-Pci-412272:40 GGT (GAMMA GLUTAMYLTRANSFERASE) Comments: PATIENT NOT FASTINGPERFORMED BY: [employer]Orp Qaspbx7710 [facility]Sh[facility]EC[facility] [id number] (15050) GGT 49 [iU]/L (Normal) Range: 0-60 :40 FERRITIN (67260) Comments: PATIENT NOT FASTINGPERFORMED BY: [employer] Pqunsp8722 [facility] [id number] Ferritin, Serum 340 ng/mL (Abnormal) Range: 15-150 :40 CMV IGM ANTBDY (68231) Comments: PATIENT NOT FASTINGPERFORMED BY: [employer] Sroaet8223 [facility] [id number] Cytomegalovirus (CMV) Ab, IgM <30.0 AU/mL (Normal) Range: 0.0-29.9 Comments: Negative <30.0 Equivocal 30.0 - 34.9 Positive >34.9 A positive result is generally indicative of acute infection, reactivation or persistent IgM production. :40 CERULOPLASMIN (16894) Comments: PATIENT NOT FASTINGPERFORMED BY: [employer] Vgzhyj[address] [facility] [id number] Ceruloplasmin 29.7 mg/dL (Normal) Range: 19.0-39.0 :40 ASM (ANTI SMOOTH MUSCLE Comments: PATIENT NOT FASTINGPERFORMED BY: [employer] Fwowts[address] [facility] [id number] ANTIBODY) (59831) Actin (Smooth Muscle) Antibody 9 {Units} (Normal) Range: 0-19 Comments: Negative 0 - 19 Weak positive 20 - 30 Moderate to strong positive >30 . Actin Antibodies are found in 52-85% of patients with autoimmune hepatitis or chronic active hepatitis and in 22% of patients with primary biliary cirrhosis. 97-Que-429394:40 ANTI-LIVER/KIDNEY MICROSOMAL Comments: PATIENT NOT FASTINGPERFORMED BY: [facility] [id number] ANTIBODY (11653) Thyroid Peroxidase (TPO) Ab 14 {IU/mL} (Normal) Range: 0-34 75-Yth-901812:40 DONALDO (ANTINUCLEAR ANTIBODY) Comments: PATIENT NOT FASTINGPERFORMED BY: [facility] [id number] (34355) DONALDO Direct Negative (Normal) 66-Ibd-797527:16 Urinalysis, Office (47342) UA - LEUKOCYTE ESTERASE Negative (Normal) UA - NITRITE Negative (Normal) URINE UROBILINGN MARIELA TIMED Normal mg/dL (Normal) UA - PROTEIN Negative mg/dL (Normal) UA - PH 7 (Normal) UA - BLOOD Non Hemolyzed Moderate (Normal) UA - SPECIFIC GRAVITY 1.010 (Normal) UA - KETONES Negative mg/dL (Normal) UA - BILIRUBIN Negative (Normal) UA - GLUCOSE Negative (Normal) 17-Hvs-930780:03 URINE DAVID CULTURE-MARIELA COL Comments: PATIENT NOT FASTINGPERFORMED BY: [facility] [id number] Information: SRC:UC COUNT (81755) Result 1 NG36 (Normal) Comments: No growth in 36 - 48 hours. Urine Culture,Comprehensive Final report (Normal) 07-Ftv-593785:55 Microscopic Examination Comments: PATIENT WAS FASTINGPERFORMED BY: [facility] [id number] Bacteria Few (Normal) Mucus Threads Present (Normal) Epithelial Cells (non renal) 0-10 {/hpf} (Normal) Range: 0 - 10 RBC 3-10 {/hpf} (Abnormal) Range: 0 - 2 WBC 0-5 {/hpf} (Normal) Range: 0 - 5 :55 Metabolic Panel, Comprehensive Comments: PATIENT WAS FASTINGPERFORMED BY: LabCoEssex County HospitalSxrpry9975 [facility] [id number] (73497) ALT (SGPT) 104 [iU]/L (Abnormal) Range: 0-32 [...] Glucose, Serum 85 mg/dL (Normal) Range: 65-99 23-Udn-394408:55 Lipid Panel (61856) Comments: PATIENT WAS FASTINGPERFORMED BY: LabCoEssex County HospitalMvvtxl2279 [facility] [id number] LDL/HDL Ratio 2.0 {ratio_units} (Normal) Range: 0.0-3.2 Comments: LDL/HDL Ratio Men Women 1/2 Avg.Risk 1.0 1.5 Av g.Risk 3.6 3.2 2X Avg.Risk 6.2 5.0 3X Avg.Risk 8.0 6.1 LDL Cholesterol Calc 121 mg/dL (Abnormal) Range: 0-99 VLDL Cholesterol Kenyon 28 mg/dL (Normal) Range: 5-40 HDL Cholesterol 61 mg/dL (Normal) Triglycerides 142 mg/dL (Normal) Range: 0-149 Cholesterol, Total 210 mg/dL (Abnormal) Range: 100-199 56-Xqf-496499:55 URINALYSIS, W/ MICRO (53939) Comments: PATIENT WAS FASTINGPERFORMED BY: Seesmic [facility] [id number] Microscopic Examination See below: (Normal) Comments: Microscopic was indicated and was performed. Nitrite, Urine Negative (Normal) Urobilinogen,Semi-Qn 0.2 mg/dL (Normal) Range: 0.2-1.0 Bilirubin Negative (Normal) Occult Blood 2+ (Abnormal) Ketones Negative (Normal) Glucose Negative (Normal) Protein Negative (Normal) WBC Esterase Negative (Normal) Appearance Clear (Normal) Urine-Color Yellow (Normal) pH 6.0 (Normal) Range: 5.0-7.5 Specific Marshall 1.023 (Normal) Range: 1.005-1.030 :55 CALCIFEDIOL (71344) Comments: PATIENT WAS FASTINGPERFORMED BY: [facility]6370 [facility] [id number] Vitamin D, 25-Hydroxy 42.8 ng/mL (Normal) Range: 30.0-100.0 Comments: Vitamin D deficiency has been defined by the [place] of[facility] Systemcine and an Endocrine Society practice guideline as alevel of serum 25-OH vitamin D less than 20 ng/mL (1,2).The Endocrine Society went on to further define vitamin Dinsufficiency as a level between 21 and 29 ng/mL (2).1. IOM ([place] of Medicine). 2010. Dietary reference intakes for calcium and D. [place]: The National Academies Press.2. Taylor MF, Herman NC, Obdulio SOUSA, et al. Evaluation, treatment, and prevention of vitamin D deficiency: an Endocrine Society clinical practice guideline. JCEM. 2010; 96(7):1911-30. :48 METABOLIC PANEL, Comments: PATIENT WAS FASTINGPERFORMED BY: DGITrp [place] [id number] Information: [id number] COMPREHENSIVE (98888) ALT (SGPT) 48 [iU]/L (Abnormal) Range: 0-32 [...] Glucose, Serum 87 mg/dL (Normal) Range: 65-99 26-Ffd-49954:48 LIPID PANEL (88663) Comments: PATIENT WAS FASTINGPERFORMED BY: WILLIAN LabCoEssex County HospitalOnwiwf6804 [facility] [id number] LDL/HDL Ratio 1.8 {ratio_units} (Normal) Range: 0.0-3.2 [...] (Normal) Range: 100-199 :06 Vitamin D Hydroxy (15303) Comments: PATIENT WAS FASTINGPERFORMED BY: DGITEssex County HospitalSdkdxm0016 [facility] [id number] Vitamin D, 25-Hydroxy 47.2 ng/mL (Normal) Range: 30.0-100.0 Comments: Vitamin D deficiency has been defined by the [place] ofMedicine and an Endocrine Society practice guideline as alevel of serum 25-OH vitamin D less than 20 ng/mL (1,2).The Endocrine Society went on to further define vitamin Dinsufficiency as a level between 21 and 29 ng/mL (2).1. IOM ([place] of Medicine). 2010. Dietary reference intakes for calcium and D. [place]: The National Academies Press.2. Taylor MF, Herman NC, Obdulio SOUSA, et al. Evaluation, treatment, and prevention of vitamin D deficiency: an Endocrine Society clinical practice guideline. JCEM. 2010; 96(7):1911-30. :06 METABOLIC PANEL, Comments: PATIENT WAS FASTINGPERFORMED BY: [facility]Promed[facility]6370 [facility] [id number] Information: [id number] COMPREHENSIVE (74888) ALT (SGPT) 45 [iU]/L (Abnormal) Range: 0-32 [...] Glucose, Serum 90 mg/dL (Normal) Range: 65-99 47-Dmf-53462:06 LIPID PANEL (75870) Comments: PATIENT WAS FASTINGPERFORMED BY: [employer]70 [facility]EC[facility] [id number] LDL/HDL Ratio 3.0 {ratio_units} (Normal) Range: 0.0-3.2 [...] Cholesterol, Total 263 mg/dL (Abnormal) Range: 100-199 72-Sgt-274092:47 URINE CALCIUM MARIELA TIMED Comments: PATIENT NOT FASTINGPERFORMED BY: [employer]70 PayoffECU [facility] [id number] Information: [id number] START 07/16/15@7AM FINISH 24 Hour (68517) Calcium, Urine 24hr 288.2 {mg/24_hr} (Normal) Range: 100.0-300.0 Calcium, Urine 13.1 mg/dL (Normal) :01 CALCIFEDIOL (30394) Comments: PATIENT NOT FASTINGPERFORMED BY: [facility]6370 [facility] [id number] Vitamin D, 25-Hydroxy 37.1 ng/mL (Normal) Range: 30.0-100.0 Comments: Vitamin D deficiency has been defined by the [place] ofMedicine and an Endocrine Society practice guideline as alevel of serum 25-OH vitamin D less than 20 ng/mL (1,2).The Endocrine Society went on to further define vitamin Dinsufficiency as a level between 21 and 29 ng/mL (2).1. IOM ([place] of Medicine). 2010. Dietary reference intakes for calcium and D. [place]: The National Academies Press.2. Taylor MF, Herman MAGAÑA, Obdulio SOUSA, et al. Evaluation, treatment, and prevention of vitamin D deficiency: an Endocrine Society clinical practice guideline. JCEM. 2010; 96(7):1911-30. :01 METABOLIC PANEL, COMPREHENSIVE Comments: PATIENT NOT FASTINGPERFORMED BY: LabCoEssex County HospitalZlvifw0109 [facility] [id number] (75698) ALT (SGPT) 28 [iU]/L (Normal) Range: 0-32 [...] Glucose, Serum 84 mg/dL (Normal) Range: 65-99 65-Jit-47769:01 CBC WITH MANUAL DIFF Comments: PATIENT NOT FASTINGPERFORMED BY: [facility] Dbztwy3068 [facility] [id number] Information: [id number] (86468) Immature Grans (Abs) 0.0 {x10E3/uL} (Normal) Range: [...] {x10E3/uL} (Normal) Range: 3.4-10.8 :19 Lipid Panel (50985) Comments: PATIENT NOT FASTINGPERFORMED BY: [facility] SolutionsPromedica [facility]6370 [facility] [id number] Information: [id number]; non-emergent till apt LDL/HDL Ratio 2.7 {ratio_units} [...] Cholesterol, Total 256 mg/dL (Abnormal) Range: 100-199 :03 CBC With Differential/Platelet Comments: PATIENT WAS FASTINGPERFORMED BY: DGITEssex County HospitalYuhbth3946 [facility] [id number] Information: [id number] Immature Grans (Abs) 0.0 {x10E3/uL} (Normal) Range: [...] 3.77-5.28 WBC 6.0 {x10E3/uL} (Normal) Range: 3.4-10.8 56-Kwg-10675:03 Comp. Metabolic Panel (14) Comments: PATIENT WAS FASTINGPERFORMED BY: LabCoEssex County HospitalSylieg9730 [facility] [id number] ALT (SGPT) 41 [iU]/L (Abnormal) Range: 0-32 [...] Glucose, Serum 94 mg/dL (Normal) Range: 65-99 02-Uwn-82219:03 Lipid Panel With LDL/HDL Comments: PATIENT WAS FASTINGPERFORMED BY: [facility] [id number] Ratio LDL/HDL Ratio 3.1 {ratio_units} Range: 0.0-3.2 [...] ng/mL (Abnormal) Comments: PATIENT WAS FASTINGPERFORMED BY: [facility] [facility] [id number] 9:03 Range: 30.0-100.0 Comments: Vitamin D deficiency has been defined by the [place] ofMedicine and an Endocrine Society practice guideline as alevel of serum 25-OH vitamin D less than 20 ng/mL (1,2).The Endocrine Society went on to further define vitamin Dinsufficiency as a level between 21 and 29 ng/mL (2).1. IOM ([place] of Medicine). 2010. Dietary reference intakes for calcium and D. [place]: The National Academies Press.2. Taylor MF, Herman NC, Obdulio SOUSA, et al. Evaluation, treatment, and prevention of vitamin D deficiency: an Endocrine Society clinical practice guideline. JCEM. 2010; 96(7):1911-30. 66-Oaw-625336:15 METABOLIC PANEL, Comments: PATIENT NOT FASTINGPERFORMED BY: [facility] Srfsmt2569 [facility] [id number] Information: [id number] COMPREHENSIVE (97523) ALT (SGPT) 52 [iU]/L (Abnormal) Range: 0-32 [...] Glucose, Serum 91 mg/dL (Normal) Range: 65-99 90-Apz-246200:15 DONALDO (ANTINUCLEAR ANTIBODY) Comments: PATIENT NOT FASTINGPERFORMED BY: Qustreetlin6370 [facility] [id number] (42296) DONALDO Direct Negative (Normal) 79-Pem-716376:15 ANTI-LIVER/KIDNEY MICROSOMAL Comments: PATIENT NOT FASTINGPERFORMED BY: [employer] Internet SolutionsJames Ville 3005070 [facility] [id number] ANTIBODY (58484) Thyroid Peroxidase (TPO) Ab 14 {IU/mL} (Normal) Range: 0-34 64-Ozp-373212:15 ASM (ANTI SMOOTH MUSCLE Comments: PATIENT NOT FASTINGPERFORMED BY: DGIT[address] [id number] ANTIBODY) (53245) Actin (Smooth Muscle) Antibody 8 {Units} (Normal) Range: 0-19 Comments: Negative 0 - 19 Weak positive 20 - 30 Moderate to strong positive >30 . Actin Antibodies are found in 52-85% of patients with autoimmune hepatitis or chronic active hepatitis and in 22% of patients with primary biliary cirrhosis. 37-Ari-470246:15 CERULOPLASMIN (98036) Comments: PATIENT NOT FASTINGPERFORMED BY: [facility] SolutionsPromedica [facility]6370 [facility] [id number] Ceruloplasmin 31.9 mg/dL (Normal) Range: 16.0-45.0 61-Cpr-696671:15 FERRITIN (18137) Comments: PATIENT NOT FASTINGPERFORMED BY: [facility] SolutionsPromedica [facility]6370 [facility] [id number] Ferritin, Serum 423 ng/mL (Abnormal) Range: 15-150 08-Sap-337750:15 TRANSFERRIN (45616) Comments: PATIENT NOT FASTINGPERFORMED BY: [employer] Internet SolutionsJames [place] 3005070 [facility] [id number] Transferrin 277 mg/dL (Normal) Range: 200-370 75-Wuk-460009:15 ANTIMITOCHONDRIAL ANTIBODY Comments: PATIENT NOT FASTINGPERFORMED BY: [employer] SolutionsJames [place] 3005070 [facility] [id number] (18527) Atypical pANCA <1:20 {titer} (Normal) Comments: The [...] follow up testing ofpositive sera with both UT-3 and MPO- ANCA enzyme immunoassays. Asmany as 5% serum samp les are positive only by EIA.Ref. AM J Clin Pathol 1999;111:507-513. Cytoplasmic (C-ANCA) <1:20 {titer} (Normal) 89-Vyh-770642:15 HEPATITIS PANEL (97457) Comments: PATIENT NOT FASTINGPERFORMED BY: FIXO Atlas5DSoutheast [facility] [id number] Hep C Virus Ab <0.1 {s/co_ratio} (Normal) Range: 0.0-0.9 Comments: Negative: < 0.8 Indeterminate: 0.8 - 0.9 Positive: > 0.9 . In order to reduce the incidence of a false positive result, the CDC recommends that all s/co ratios between 1.0 and 10.9 be confirmed by a more specific supplemental or PCR testing. [facility] offers HCV Ab w/Reflex to Verification test #[id number]. Hep B Core Ab, IgM Negative (Normal) HBsAg Screen Negative (Normal) Hep A Ab, IgM Negative (Normal) 46-Zmv-104872:15 HEPATIC FUNCTION PANEL Comments: PATIENT NOT FASTINGPERFORMED BY: DGITEssex County HospitalPrpzxk7658 [facility] [id number] (92193) Bilirubin, Direct 0.10 mg/dL (Normal) Range: 0.00-0.40 :52 Protein Electro, Random Urine Comments: PATIENT WAS FASTINGPERFORMED BY: FIXOEssex County HospitalGviujp1666 [facility] [id number] Please note: SPRCS (Normal) Comments: Protein electrophoresis scan will follow via computer, mail, orcourier delivery. M-Manny, % Not Observed % (Normal) Gamma Globulin, U 4.4 % (Normal) Beta Globulin, U 10.9 % (Normal) Temrx-9-Dakvfhfz, U 8.4 % (Normal) Bbnkv-2-Iducwoql, U 5.7 % (Normal) Albumin, U 70.6 % (Normal) Protein,Total,Urine 10.0 mg/dL (Normal) Range: 0.0-15.0 :52 Protein Electro.,S Comments: PATIENT WAS FASTINGPERFORMED BY: FIXO Ceacrl2052 [facility] [id number] Please note: SPRCS (Normal) Comments: Protein electrophoresis scan will follow via computer, mail, orcourier delivery. A/G Ratio 1.5 (Normal) Range: 0.7-2.0 Globulin, Total 2.6 g/dL (Normal) Range: 2.0-4.5 M-Manny Not Observed g/dL (Normal) Gamma Globulin 0.9 g/dL (Normal) Range: 0.5-1.6 Beta Globulin 0.9 g/dL (Normal) Range: 0.6-1.3 Sxrer-9-Zhsfpfvy 0.7 g/dL (Normal) Range: 0.4-1.2 Vpgnw-9-Wcljkxft 0.2 g/dL (Normal) Range: 0.1-0.4 Albumin 4.0 g/dL (Normal) Range: 3.2-5.6 :52 METABOLIC PANEL, BASIC Comments: PATIENT WAS FASTINGPERFORMED BY: InRadio LabCoElsaLys BiotechExfmnf1457 [facility] [id number] Information: [id number],2ND ORDER NO DRAW F EE (76169) Calcium, Serum 9.9 mg/dL (Normal) Range: 8.7-10.2 [...] PANEL, COMPREHENSIVE Comments: PATIENT WAS FASTINGPERFORMED BY: [employer]70 [facility]-SIMNorton [facility] [id number]; non- emergent till apt tomorrow (42171) ALT (SGPT) 95 [iU]/L (Abnormal) Range: 0-32 [...] 89 mg/dL (Normal) Range: 65-99 :52 PARATHORMONE (37422) Comments: PATIENT WAS FASTINGPERFORMED BY: [facility]6370 [facility]EC[facility] [id number] PTH, Intact 31 pg/mL (Normal) Range: 15-65 :52 TSH (94216) Comments: PATIENT WAS FASTINGPERFORMED BY: [employer] SolutionsCo Jiszqc7905 [facility] [id number] TSH 1.540 {uIU/mL} (Normal) Range: 0.450-4.500 :38 URINE CALCIUM MARIELA TIMED Comments: PATIENT NOT FASTINGPERFORMED BY: [facility] SolutionsPromedica [facility]6370 [facility] [id number] Information: [id number] START- 05/22/14@8AM 24 Hour (45976) Calcium, Urine 24hr 359.1 {mg/24_hr} (Abnormal) Range: 100.0-300.0 Calcium, Urine 26.6 mg/dL (Normal) :52 Vitamin D Hydroxy (92096) Comments: PATIENT WAS FASTINGPERFORMED BY: [facility] Internet SolutionsRusk Rehabilitation Center Inzxyu1543 [facility] [id number] Vitamin D, 25-Hydroxy 40.3 ng/mL (Normal) Range: 30.0-100.0 Comments: Vitamin D deficiency has been defined by the [place] ofMedicine and an Endocrine Society practice guideline as alevel of serum 25-OH vitamin D less than 20 ng/mL (1,2).The Endocrine Society went on to further define vitamin Dinsufficiency as a level between 21 and 29 ng/mL (2).1. IOM ([place] of Medicine). 2010. Dietary reference intakes for calcium and D. [place]: The National Academies Press.2. Taylor MF, Herman NC, Obdulio SOUSA, et al. Evaluation, treatment, and prevention of vitamin D deficiency: an Endocrine Society clinical practice guideline. JCEM. 2010; 96(7):1911-30. :23 HPV automatic Comments: Source.............Cervical;EndocervicalNo. of containers..01 CYTYC Thin Prep VialPATIENT NOT FASTINGPERFORMED BY: [facility] Fzvdowdsly[address] [place] [id number] BY: Cynthia Hudson (81525) Rehana Buckley[address] [place] [address] [place] [id number] Information: [id number] HPV, high-risk Negative Comments: This high-risk HPV [...] Special screening examination, human papillomavirus [HPV]Jakub Randhawa, Decorator Mannequin (ASCP) 69-Itq-13362:00 ABDOMEN/PELVIS WITHOUT CONT Radiology Report See Note [...] Araiza D.O.April 20, 2012 at 7:22:05 PM [id number] Signed IF/IF If you are the referring physician and would like to consult with theradiologist who provided this interpretation, please contact Silvano Araiza D.O.at [phone]. If this radiologist is unavailable, you will be directedto another radiologist to assist. If you are a patient with a question regarding this report, pleasecontactyour referring physician directly. Professional Interpretation Provided By: [email or web address], Phone , These documents contain legally protected [...] the return or destructionofthese documents. Dictated on 04/20/121648 by Marissa Araiza DOranscribed on 04/20/121924 by ITS IMPORTSign by Silvano Araiza DO on 04/20/121925 Sign by: Silvano Araiza DO 98-Zru-08368:52 Urinalysis, Office (26499) UA - BILIRUBIN Negative (Normal) UA - BLOOD Non Hemolyzed Moderate (Normal) UA - GLUCOSE Negative (Normal) UA - KETONES Negative mg/dL (Normal) UA - LEUKOCYTE ESTERASE Negative (Normal) UA - NITRITE Negative (Normal) UA - PH 5.0 (Normal) UA - PROTEIN Negative mg/dL (Normal) UA - SPECIFIC GRAVITY 1.025 (Normal) URINE UROBILINGN MARIELA TIMED Normal mg/dL (Normal) :54 URINE DAVID CULTURE-MARIELA COL Comments: PATIENT NOT FASTINGPERFORMED BY: CB [facility] Vwobol9685 [facility] [id number] Information: SRC:ELSY [id number] COUNT (93714) Result 1 NG36 (Normal) Comments: No growth in 36 - 48 hours. Urine Culture,Comprehensive Final report (Normal) :57 HPV automatic Comments: Source.............Cervical;EndocervicalNo. of containers..01 CYTYC Thin Prep VialPATIENT NOT FASTINGPERFORMED BY: [facility] Khvcyjojls[address] [place] [id number] BY: =Madeleine Hudson (95376) [facility] Mdjopvkjgf943 [facility] [place] [id number] Information: [id number] HPV, high-risk Negative Comments: This high-risk HPV [...] ; Routine gynecological examinationMaria Esther De Santiago Decorator Mannequin (ASCP) :48 Microscopic Examination Comments: PATIENT WAS FASTINGPERFORMED BY: [facility] Osytmd1727 [facility] [id number] Bacteria Few (Normal) Mucus Threads Present (Normal) Crystal Type Calcium Oxalate (Normal) Crystals Present (Abnormal) Epithelial Cells (non renal) >10 {/hpf} (Abnormal) Range: 0 - 10 RBC 0-3 {/hpf} (Normal) Range: 0 - 3 WBC 0-5 {/hpf} (Normal) Range: 0 - 5 :48 RHEUMATOID FACTOR-QUANT (27231) Comments: PATIENT WAS FASTINGPERFORMED BY: [facility] Dilgxx9004 [address] RoadDublin [place] [id number] RA Latex Turbid. 12.8 {IU/mL} (Normal) Range: 0.0-13.9 :48 DONALDO (ANTINUCLEAR ANTIBODY) Comments: PATIENT WAS FASTINGPERFORMED BY: [facility]6[address] RoadDublin [place] [id number] (29230) DONALDO Direct Negative (Normal) :48 IRON (51134) Comments: PATIENT WAS FASTINGPERFORMED BY: [facility]6[address]ublin [place] [id number] Iron, Serum 48 ug/dL (Normal) Range: 35-155 :48 Vitamin D Hydroxy (16482) Comments: PATIENT WAS FASTINGPERFORMED BY: Qustreetlin6370 [address] RoadDublin [place] [id number] Vitamin D, 25-Hydroxy 60.8 ng/mL (Normal) Range: 30.0-100.0 Comments: Vitamin D deficiency has been defined by the [place] ofHol[facility] Systemcine and an Endocrine Society practice guideline as alevel of serum 25-OH vitamin D less than 20 ng/mL (1,2).The Endocrine Society went on to further define vitamin Dinsufficiency as a level between 21 and 29 ng/mL (2).1. IOM ([place] of Medicine). 2010. Dietary reference intakes for calcium and D. [place]: The National Academies Press.2. Taylor MF, Herman NC, Obdulio SOUSA, et al. Evaluation, treatment, and prevention of vitamin D deficiency: an Endocrine Society clinical practice guideline. JCEM. 2010; 96(7):1911-30. :48 VITAMIN B-12 (CYANOCOBALAMIN) Comments: PATIENT WAS FASTINGPERFORMED BY: [facility]6370 [facility] [id number] (54313) Vitamin B12 1022 pg/mL (Abnormal) Range: 211-946 :48 T4, FREE (THYROXINE) (64877) Comments: PATIENT WAS FASTINGPERFORMED BY: [employer] Internet SolutionsJames Ville 3005070 [facility] [id number] T4,Free(Direct) 1.14 ng/dL (Normal) Range: 0.82-1.77 :48 T3, FREE (TRIDOTHYRONINE) (03131) Comments: PATIENT WAS FASTINGPERFORMED BY: [facility] SolutionsPromedica [facility]6370 [facility] [id number] Triiodothyronine,Free,Serum 2.5 pg/mL (Normal) Range: 2.0-4.4 :48 LIPID PANEL (87999) Comments: PATIENT WAS FASTINGPERFORMED BY: [facility] SolutionsPromedica [facility]6370 [facility] [id number] LDL/HDL Ratio 2.2 {ratio_units} (Normal) Range: 0.0-3.2 LDL Cholesterol Calc 138 mg/dL (Abnormal) Range: 0-99 VLDL Cholesterol Kenyon 21 mg/dL (Normal) Range: 5-40 HDL Cholesterol 64 mg/dL (Normal) Comments: According to ATP-III Guidelines, HDL-C >59 mg/dL is considered anegative risk factor for CHD. Triglycerides 107 mg/dL (Normal) Range: 0-149 Cholesterol, Total 223 mg/dL (Abnormal) Range: 100-199 :48 URINALYSIS, W/ MICRO (65194) Comments: PATIENT WAS FASTINGPERFORMED BY: [facility] SolutionsPromedica [facility]6370 [facility] [id number] Microscopic Examination See below: (Normal) Nitrite, Urine Negative (Normal) Urobilinogen,Semi-Qn 0.2 mg/dL (Normal) Range: 0.0-1.9 Bilirubin Negative (Normal) Occult Blood 2+ (Abnormal) Ketones Negative (Normal) Glucose Negative (Normal) Protein Negative (Normal) WBC Esterase 1+ (Abnormal) Appearance Clear (Normal) Urine-Color Yellow (Normal) pH 6.0 (Normal) Range: 5.0-7.5 Specific Marshall 1.023 (Normal) Range: 1.005-1.030 :48 TSH (63002) Comments: PATIENT WAS FASTINGPERFORMED BY: [facility]6370 [facility] [id number] TSH 1.250 {uIU/mL} (Normal) Range: 0.450-4.500 :48 CBC WITH MANUAL DIFF Comments: PATIENT WAS FASTINGPERFORMED BY: [facility]6370 [facility] [id number] Information: [id number] (24614) Immature Grans (Abs) 0.0 {x10E3/uL} (Normal) Range: [...] 3.77-5.28 WBC 7.1 {x10E3/uL} (Normal) Range: 4.0-10.5 :48 METABOLIC PANEL, COMPREHENSIVE Comments: PATIENT WAS FASTINGPERFORMED BY: [facility] Edjkcy8093 [facility] [id number] (99356) ALT (SGPT) 24 [iU]/L (Normal) Range: 0-40 [...] Glucose, Serum 88 mg/dL (Normal) Range: 65-99 98-Uxb-692628:24 LIPID PANEL (94603) Comments: PATIENT WAS FASTINGPERFORMED BY: DGITPlains Regional Medical CenterQkqhqu5414 [facility] [id number] Information: [id number] HDL Cholesterol 56 mg/dL (Normal) Comments: According to ATP-III Guidelines, HDL-C >59 mg/dL is considered anegative risk factor for CHD. LDL Cholesterol Calc 130 mg/dL (Abnormal) Range: 0-99 LDL/HDL Ratio 2.3 {ratio_units} (Normal) Range: 0.0-3.2 VLDL Cholesterol Kenyon 16 mg/dL (Normal) Range: 5-40 Triglycerides 82 mg/dL (Normal) Range: 0-149 Cholesterol, Total 202 mg/dL (Abnormal) Range: 100-199 63-Szv-936750:30 CHEST, PA AND LATERAL Radiology Report See Note (Normal) Comments: Exam Number: [id number] CHEST, PA AND LATERAL PA and lateral [...] be ruled out. Reported By: SILVERIO BE 73-Vvu-424650:11 CBCD,SMEAR DIFF Comments: RESULTS FAXED 10/17/09 1232 AMBIKA CRAWFORD. BAND 1 % (Normal) Range: [...] 47-70 WBC 6.7 K/mm3 (Normal) Range: 4.4-11.0 16-Apv-692227:11 COMP METABOLIC ALK P 61 U/L (Normal) [...] T PROT 6.7 g/dL (Normal) Range: 6.4-8.2 13-Uik-996276:11 D-DIMER QUANT <200 ng/mL (Normal) Comments: NORMAL D-Dimer level indicates no DVT or PE. 37-Ayl-796043:11 TSH 0.82 {uIU/mL} (Normal) Range: 0.358-3.74 Plan [...] routine gynecological exam : *Well Female Maintenance ([facility]) Indication: Well woman exam with routine gynecological [...] Cholesterol mgmt Indication: Hypercholesteremia Hematuria : Reviewed [employer] Letter- work up neg and bengign Indication: Hematuria Elevated liver function tests : Reviewed [employer] Letter- stopped statin and follow Indication: Elevated [...] Indication: Acute sinusitis, unspecified Planned Observations CALCIFIDIOL (13258) VIT D 25Indication: Vitamin D deficiency On: :42 Request HEPATIC FUNCTION PANEL (39525)Indication: Hypercholesteremia On: :42 Request HEPATIC FUNCTION PANEL (40307)Indication: BMI 22.0-22.9, adult On: :36 Request LIPOPROTEIN, BLD, BY NMR (29349)Indication: Hypercholesteremia On: :35 Request LIPID PANEL (85069)Indication: Hypercholesteremia On: 4-Qhj-509170:00 Request FERRITIN (63908)Indication: Elevated liver function tests On: 21-Wfp-559347:08 Request Comments: to be drawn about 06/14/2016 URINE DAVID CULTURE-IDENTIFICATN (81267)Indication: Hematuria On: 70-Vor-917357:16 Request Vitamin D Hydroxy (29001)Indication: Vitamin D deficiency On: :01 Request LIPID PANEL (90728)Indication: Hyperlipidemia On: 4-Esx-359939:29 Request HEPATIC FUNCTION PANEL (91458)Indication: Elevated liver function tests On: 7-Kuf-905963:16 Request Comments: in 4 weeks Vitamin D Hydroxy (41593)Indication: Vitamin D deficiency On: :02 Request CALCIUM SERUM (44876)Indication: Vitamin D deficiency On: :02 Request Vitamin D Hydroxy (80750)Indication: Osteoporosis (Renamed from OP (osteoporosis)) On: :27 Request CBC with auto diff (73213)Indication: Elevated liver enzymes On: 08-Ebs-22381:26 Request METABOLIC PANEL, COMPREHENSIVE (30477)Indication: Elevated liver enzymes On: 77-Pdv-20248:24 Request LIPID PANEL (97763)Indication: Hyperlipidemia On: 40-Hqe-39377:23 Request Magnesium (16726)Indication: Abnormal blood chemistry On: :17 Request Metabolic Panel, Basic (02949)Indication: Abnormal blood chemistry On: 84-Wlz-384755:17 Request Magnesium (87548)Indication: Hypercalciuria On: :10 Request Metabolic Panel, Basic (99744)Indication: Hypercalciuria On: :10 Request SPEP (27449)Indication: Osteoporosis (Renamed from OP (osteoporosis)) On: 91-Ouo-353598:26 Request UPEP (60780)Indication: Osteoporosis (Renamed from OP (osteoporosis)) On: 59-Fpq-261339:26 Request CBC W/AUTO DIFF WBC (70364)Indication: Malignant neoplasm of breast (female) On: 27-Apr-20148:55 Request METABOLIC PANEL, COMPREHENSIVE (57277)Indication: Malignant neoplasm of breast (female) On: :55 Request LIPID PANEL (28768)Indication: Hypercholesteremia On: 27-Apr-20148:53 Request Thin prep Pap (95057)Indication: Well woman exam with routine gynecological exam On: :33 Request Thin prep Pap (14362)Indication: Well woman exam On: 43-Ury-66686:21 Request URINALYSIS (52357)Indication: Hematuria On: 12-Lfw-811113:40 Request URINE DAVID CULTURE-IDENTIFICATN (56989)Indication: Hematuria On: 60-Cin-210216:40 Request D-Dimer (13345)Indication: Chest pain On: :19 Request Comments: stat TSH (15588)Indication: Chest pain On: :18 Request METABOLIC PANEL, COMPREHENSIVE (94915)Indication: Chest pain On: :18 Request CBC WITH MANUAL DIFF (57695)Indication: Chest pain On: 31-Nhv-26031:18 Request Planned Encounters Medical; 6 Month FU - On: 01-Oct-2018 7:00 [facility] Lesly Cross DO, DO, Kathleen Planned Procedures Solu -Medrol Injection, 125 mg On: 14-Jan-2018 Intent (J2930)By: Huong Arellano CNP DEXA SCAN AXIAL SKELETON (80257)By: On: 03-Nov-2017 Intent Lesly Cross DO, DO, Kathleen SCREENING DIGITAL TOMOSYNTHESIS OF On: 03-Nov-2017 Intent BREAST (22417)By: Tay TOLBERT, Comments: last dexa 05/08 Lesly Chisholm DO ELECTROCARDIOGRAM, COMPLETE (ECG) On: 29-Sep-2017 Intent (47660)By: Lesly Cross DO Comments: nsr no acute chg -- non specif st chg poor R wave progrssion Lesly Cross DO MAMMOGRAM BREAST BILATERAL SCREENING On: 09-Dec-2016 Intent DIGITAL (49026)By: Lesly Cross DO, DO, Kathleen Ultrasound - LiverBy: Yumiko GONZALEZ, On: 14-May-2016 Intent Wang Bone Density StudyBy: Yumiko GONZALEZ, On: 12-Mar-2016 Intent Wang BILATERAL MAMMOGRAMS (43093)By: Aravind On: 13-Nov-2015 Intent Shauna TOLBERT Radiology - Forearm - RightBy: Fast On: 25-Sep-2015 Intent Shauna TOLBERT Radiology - Elbow - RightBy: Fast On: 25-Sep-2015 Intent Shauna TOLBERT MAMMOGRAM, SCREENING, BOTH BREAST On: 15-Nov-2014 Intent (18428)By: Shauna Nazario DO EKG (20229)By: Shauna Nazario DO On: 15-Nov-2014 Intent Comments: ekg showed normal sinus rhythym, normal axis, no acute st/t wave changes Solu -Medrol Injection, 125 mg On: 08-Aug-2014 Intent (J2930)By: Shauna Nazario DO Comments: lot [id number] 7.[address] - AbdomenBy: Darleen Fuentes LPN On: 05-Jul-2014 Intent Comments: pre and post contrast with delayed images trough the liver Ultrasound - LiverBy: Shauna Nazario DO On: 07-Jun-2014 Intent A TDAP VACCINE >7 IM ([id number])By: Fast On: 27-Apr-2014 Intent DO, Shauna A Comments: lot [id number] L armroute imgiven by - VIS and/or ABN signed DEXA SCAN AXIAL SKELETON (39529)By: On: 27-Apr-2014 Intent Fast DO, Shauna A Solu -Medrol Injection, 125 mg On: 18-Jan-2014 Intent (J2930)By: Huong Arellano CNP Breast Diagnostic - BilateralBy: On: 20-Oct-2013 Intent Fast DO, Shauna A Solu -Medrol Injection, 125 mg On: 29-Jan-2013 Intent (J2930)By: Huong Arellano CNP Comments: lot # [id number]- [id number]-WTYCZyiaqg-JUmgys- 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 Eprescribed prescriptions (G8553)By: On: 29-Jan-2013 Intent Huong Arellano CNP Solu -Medrol Injection, 125 mg On: 23-Dec-2012 Intent (J2930)By: Huong Arellano CNP Breast Screening - BilateralBy: Fast On: 13-Oct-[address]a A CT - Abdomen & Pelvis Stone On: 10-Apr-2012 Intent ProtocolBy: Fast DO, Shauna A DXA, BONE DENSITY, AXIAL SKELETON On: 10-Apr-2012 Intent (72543)By: Aravind TOLBERT Shauna A FLU VAC, SPLIT, >3 YEARS, INTRAMUSC On: 10-Apr-2012 Intent (79325)By: Elaine Gant Comments: gets them at work Eprescribed prescriptions (G8553)By: On: 14-Feb-2012 Intent Fast DO, Shauna A TDAP VACCINE >7 IM (68783)By: On: 14-Feb-2012 Intent Elaine Gant Comments: declines updating MAMMOGRAM, SCREENING, BOTH BREASTS On: 29-Aug-2010 Intent (41802)By: Cassie GONZALEZ, Jania Figueroa Stress EchocardiogramBy: Aravind DO, On: 15-Jan-2010 Intent Shauna A Holter Monitor 24 hrsBy: Aravind DO, On: 01-Dec-2009 Intent Shauna A Comments: do if sx persist off caffeine Echo CompleteBy: Aravind TOLBERT Shauna A On: 17-Oct-2009 Intent PFT - CompleteBy: Aravind TOLBERT Shauna A On: 17-Oct-2009 Intent Spirometry (34521)By: Aravind TOLBERT, On: 17-Oct-2009 Intent Shauna A Comments: good effort and curve mild obst Radiology - Chest- PA and LatBy: On: 17-Oct-2009 Intent Aravind TOLBERT Shauna A EKG (51613)By: Elaine Gant On: 17-Oct-2009 Intent Comments: ekg showed normal sinus rhythym, normal axis, no acute st/t wave changes Planned Medications INJECTION, METHYLPREDNISOLONE SODIUM SUCCINATE, UP TO 125 MG Ordered: 23-Dec-2012 Pending Ciesa PLATE HANGER, Maggy INJECTION, METHYLPREDNISOLONE SODIUM SUCCINATE, UP TO 125 MG Ordered: 29-Jan-2013 Pending Ciesa PLATE HANGER, Maggy INJECTION, METHYLPREDNISOLONE SODIUM SUCCINATE, UP TO 125 MG Ordered: 18-Jan-2014 Pending Ciesa PLATE HANGER, Maggy INJECTION, METHYLPREDNISOLONE SODIUM SUCCINATE, UP TO 125 MG Ordered: 08-Aug-2014 Pending Shauna Nazario DO INJECTION, METHYLPREDNISOLONE SODIUM SUCCINATE, UP TO 125 MG Ordered: 14-Jan-2018 Pending Ciesa PLATE HANGER, Maggy Instructions Name Dates Details BMI 22.0-22.9, [...] bit of a cold and cough since so I want her to look at [...] had mammo in october- and released from and has been almost 9 years- never [...] hormones due to her breast cancer hxz- mobic - little help with her shoulder but [...] being treated for this problem. 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
--- OUTSIDE RECORDS SUMMARY | 2018-06-30 21:04 | XMS RPT_ITS ---
:1960 Author Organization [facility] Care Team Providers Name Role Phone Lesly Cross DO Attending Unavailable Tay Lesly TOLBERT Referring Unavailable Tay Lesly TOLBERT Consulting Unavailable TayLesly Attending Unavailable TayOlyaLesly Referring Unavailable Tay, Lesly Primary Care Unavailable To Baltazar Attending Unavailable Tay Lesly Primary Care Unavailable To Baltazar Referring Unavailable TayLesly Attending Unavailable Tay, Lesly Referring Unavailable Tay, Lesly Primary Care Unavailable Purpose Purpose PROBLEMS PROBLEMS DATE TYPE CONDITION / CODE ATTENDING STATUS SOURCE 12/16/2017 Unknown Z12.31 - Lesly Cross Active [place] [facility] malignant neoplasm of breast / Z12.31(ICD-10) PROCEDURES PROCEDURES No Procedure Records FoundVITAL SIGNS VITAL SIGNS No Vital Signs Records FoundRESULTS RESULTS DEXA BONE DENSITY Observed: 05/19/2018 Status: F Source: [place] STUDY 8:32 AM [facility] Imaging Services [address] [place] [address] Dexa Bone Density Study MR#: [id number] Acct: [id number] Name: AMY HERRING Rep #: [id number] : 1960 F 58 From: Silverio Masters MD PCP: Lesly Cross DO Status: REG CLI Study: Dexa Bone Density Study Date of Exam: 05/19/18 Exam# [id number] Ordering Dr: Lesly Cross DO STUDY: DUAL ENERGY X-RAY ABSORPTIOMETRY / DXA REASON FOR EXAM: Female, 58 years old. Early menopause. No loss of height. TECHNIQUE: Bone Mineral Density (BMD) measurements of lumbar spine and bilateral hips were obtained. COMPARISON: Comparison is made with prior study dated May 15, 2016. FINDINGS: Lumbar Spine (L1-L4): g/cm2 (0.933) / T-score (-2.1) / Z-score (-1.2) Findings are suggestive of osteopenia with a moderate fracture risk. Left Femur Total: g/cm2 (0.673) / T-score (-2.7) / Z- score (-2.0) Left Femoral Neck: g/cm2 (0.709) / T-score (-2.4) / Z- score (-1.3) Right Femur Total: g/cm2 (0.726) / T-score (-2.2) / Z- score (-1.5) Right Femoral Neck: g/cm2 (0.742) / T-score (-2.1) / Z-score (-1.1) The T-Scores on the most recent prior examination were: Lumbar Spine (L1-L4): There has been improvement of bone density since the previous examination. Left Femur Total: which represents a worsening of 2.7%. Right Femur Total: which represents a worsening of 4.7%. BD/Dexa Bone Density Study IMPRESSION: [...] National Osteoporosis Foundation http://www.nof.org Electronically Signed: Silverio Masters MD at 13:13 EST Tel [phone], Service support , CC: Lesly Cross DO Urologist: Signed CYTOLOGY, BODY FLUID / Collected: 01/15/2018 Status: F Source: [place] CSF 4:00 PM [facility] REPOSITORY Order Comment: Specimen Source: URINE TYPE CODE TESTS RESULT OUT OF RANGE REFERENCE UNITS LAB L350.1000 SEE Normal PATHOLOGY CYTOLOGY,BF REPORT /CSF Result Comment: Specimen submitted to Anatomical Pathology Department for testing. Performed By: #### L350.1000 #### [facility] [place], [address] FLUID/WASHING Observed: 01/15/2018 Status: F Source: [place] 12:00 AM [facility] REPOSITORY Patient: AMY HERRING : 1960 (57/F) Acct Num: [id number] Phys: Giovanny GONZALEZ,To Wilson Unit Num: [id number] Loc: LABSPEC Specimen: [id number] Received: 01/15/18 - 1600 Spec Type: Fluid TISSUES TISSUES: Urine CYTOLOGY GROSS Received is 90 ml of cloudy gold/yellow fluid labeled with the patient's name and and designated per the requisition as urine. Submitted for cytology preparation. / RY:cc 01/16/18 TC:5 CPT: 18124 CYTOLOGY STUDY Slides are reviewed. The specimen consists of benign squamous cells, urothelial cells, inflammatory cells, red blood cells and crystals. DIAGNOSIS CYTOLOGY Urine for cytology (cytospin): Negative for malignant cells. SJ:clarita 01/19/18 HEADER OPERATION: Not noted PRE-OP DIAGNOSIS: Hematuria TISSUE SUBMITTED: Urine for cytology Signed Quentin Munoz 01/19/18 <signature on file> Performed By: #### PFLU #### [facility] [address] [place], [address] SCREENING MAMM (CAD), Observed: 12/16/2017 Status: F Source: [place] BILAT 7:07 AM [facility] Imaging Services [address] [place] [address] SCREENING MAMM (CAD), BILAT MR#: [id number] Acct: [id number] Name: AMY HERRING Rep #: [id number] : 1960 F 57 From: Silverio Masters MD PCP: Lesly Cross DO Status: REG CLI Study: SCREENING MAMM (CAD), BILAT Date of Exam: 12/16/17 Exam# [id number] Ordering Dr: Tay, Lesly DO MAMMOGRAPHY - BILATERAL SCREENING REASON FOR EXAM: Female, 57 years old. Routine annual screening examination. PERTINENT HISTORY: Personal history of breast cancer. Prior right lumpectomy and radiation therapy. Grandmother with breast cancer. TECHNIQUE: Digital bilateral breast nesha (3D mammographic acquisition) in the CC and MLO projections. 2-D mediolateral oblique (MLO) and craniocaudad (CC) views of both breasts were obtained. CAD: Full Field Digital Mammography with Computer Added Detection was performed. COMPARISON: Comparison is made with prior outside examination dated December 12, 2016. FINDINGS: Breast Composition: The breasts are heterogeneously dense, which may obscure small masses. There are no dominant masses or suspicious calcifications. Postsurgical changes are seen in the deep upper medial aspect of the right breast in keeping with prior lumpectomy and radiation treatment. Surgical clips are also seen in the right axillary region. Stable appearance of the axillary lymph nodes. No [...] delay biopsy of a clinically suspicious abnormality. [id number] Electronically Signed: Silverio Masters MD at 9:52 EDT Tel [phone], Service support , CC: Lesly Cross DO Urologist: Signed ALLERGIES ALLERGIES No Allergies Records FoundENCOUNTERS ENCOUNTERS ADMIT/DISCHARGE ACCOUNT ADMITTING ENCOUNTER LOCATION SOURCE NUMBER [facility] 05/20/2018 [id number] Ambulatory Building:[facility] Repository 05/19/2018 [id number] Ambulatory [place] [facility] ing:OPBD Repository 01/15/2018 [id number] Ambulatory [place] [facility] ing:LABSPEC Repository 12/16/2017 [id number] Ambulatory [place] [facility] ing:OPBI Repository FUNCTIONAL STATUS FUNCTIONAL STATUS No Functional Status Records FoundEQUIPMENT EQUIPMENT No Equipment Records FoundPAYERS PAYERS ENCOUNTER GUARANTOR PAYER SUBSCRIBER SOURCE 05/20/2018 Amy Primary Amy [facility] Pract[facility] HanzieDOB: Insurance:Coquille KobyOB: Repository [id number] [facility] [id number] Number: [address] [place], [place] [id number] [place], [place] [address]Kbr: (330) Date:9705-75-14Odxq 25[address]Ibe: Name:[facility] [address] [address]Jiwy [phone] (HP) (HP)Tel: [phone]) [place], [place] [address]MV: [phone] (WP) 05/20/2018 Secondary Amy [facility] Practices Insurance:Uriel WilliRebeccaOB: Repository Number: [id number] [address] Date: 4505[place]99[place], [place] Name:[facility] [address] [address]Nlm: [facility] [phone]: ~( 30 (HP) 05/19/2018 NICOLE [id number] Primary AMY S [place] [address] Insurance:[facility] JANETTEOB: [facility] [address]Zrzurx [id number] [address]Hwc: (330) Number: Repository [phone] (HP) [id number] Date:8762-17-24[address], [place] [address]JD: 05/19/2018 Secondary NOT GIVENUNK [place] Insurance:SELF PAY [facility] Number: Effective Repository Date:2018-03-24 01/15/2018 Nicole [id number] Primary AMY S [place] [address] [place] Insurance:[facility] [address]Wuweet [id number] [place] [id number]: (330) Number: Repository [phone] () [id number] Date:2579-20-01ZW [facility] [address], [place] [address]OL: 01/15/2018 Secondary NOT GIVENUNK [place] Insurance:SELF PAY [facility] Number: Effective Repository Date:2018-01-15 12/16/2017 Nicole [id number] Primary AMY S [place] [address] [place] Insurance:[facility]: [facility] [address]Xgttna [id number] [place] [id number]: (330) Number: Repository [phone] () [id number] Date:3287-67-32YJ [facility] [address], [place] [address]SB: 12/16/2017 Secondary NOT GIVENUNK [place] Insurance:SELF PAY [facility] Number: Effective Repository Date:2017-11-03 SOCIAL HISTORY SOCIAL HISTORY No Social History Records FoundFAMILY HISTORY FAMILY HISTORY No Family History Records FoundADVANCE DIRECTIVES ADVANCE DIRECTIVES No Advanced Directives Records FoundINFORMATION SOURCE INFORMATION SOURCE DATE CREATED AUTHOR AUTHOR'S ORGANIZATION 06/09/2018 [facility]
== END ==
PROVIDERS: Family Provider Internal Medicine; PCP Internal Medicine; Referring Provider Internal Medicine; Visit Provider Internal Medicine
DX: Z78.0 Asymptomatic menopausal state (principal)
CPT/HCPCS: 77080

== ENCOUNTER → 2019-01-08 | Outpatient (CLI) | payer OTHER, SELFPAY ==
--- NOTE | 2019-01-08 07:21 | BI_ITS ---
MAMMOGRAPHY - BILATERAL SCREENING REASON FOR EXAM: Female, 58 years old. Routine annual screening examination. PERTINENT HISTORY: Personal history of breast cancer. Prior right lumpectomy with radiation treatment. Grandmother with breast cancer. TECHNIQUE: Digital bilateral breast gely (3D mammographic acquisition) in the CC and MLO projections. 2-D mediolateral oblique (MLO) and craniocaudad (CC) views of both breasts were obtained. CAD: Full Field Digital Mammography with Computer Added Detection was performed. COMPARISON: Comparison is made with prior study dated December 16, 2017 and December 12, 2016. FINDINGS: Breast Composition: The breasts are heterogeneously dense, which may obscure small masses. There are no dominant masses or suspicious calcifications. The patient is status post lumpectomy in the deep medial axillary region of the right breast. Postsurgical changes are seen at that site. Surgical clips are also seen in the right axillary region. No other significant abnormalities are identified. There has been no significant change since the prior study. BI/SCREEN MAMM (CAD) W/GELY BILAT IMPRESSION: Stable bilateral screening mammogram. Yearly follow-up mammogram recommended. (A) ASSESSMENT CATEGORY: BIRADS Category 2: Benign. A letter regarding these results will be sent to the patient by the facility within 30 days. Approximately 10% of breast cancers are not detected by mammography. A normal mammogram should not delay biopsy of a clinically suspicious abnormality. [id number] Electronically Signed: Silverio Masters, at 8:44 EDT , Service support ,
== END | disposition home or self-care (01) ==
PROVIDERS: Family Provider Internal Medicine; PCP Internal Medicine; Referring Provider Internal Medicine; Visit Provider Internal Medicine
DX: Z12.31 Encounter for screening mammogram for malignant neoplasm of breast (principal)
CPT/HCPCS: 77063; 77067

== ENCOUNTER → 2019-07-29 09:27 | Outpatient (CLI) | payer OTHER, SELFPAY ==
--- NOTE | 2019-07-29 09:30 | RAD_ITS ---
STUDY: X-RAY CHEST REASON FOR EXAM: Female, 59 years old. Fever and cough, flulike symptoms TECHNIQUE: PA and lateral views of the chest. COMPARISON: 2009 FINDINGS: The lungs are clear and expanded. There is no demonstrated pleural abnormality. Normal size heart. Normal mediastinum and bia. Normal visualized pulmonary arteries. Normal visualized aortic arch and descending thoracic aorta. Normal visualized thoracic spine. Normal visualized ribs, clavicles, and shoulders. There is no demonstrated abnormality of the visualized soft tissue structures of the upper abdomen. RAD/Chest PA and Lateral IMPRESSION: No acute pulmonary process Electronically Signed: Jigar Persaud MD at 8:36 EST , Service support ,
== END ==
PROVIDERS: PCP Internal Medicine; Referring Provider Internal Medicine; Visit Provider Internal Medicine
DX: R05 Cough (principal); E86.0 Dehydration
CPT/HCPCS: 71046

== ENCOUNTER → 2020-02-25 07:31 | Outpatient (CLI) | payer OTHER, SELFPAY ==
--- NOTE | 2020-02-25 07:45 | BI_ITS ---
MAMMOGRAPHY - BILATERAL SCREENING REASON FOR EXAM: Female, 59 years old. Routine annual screening examination. PERTINENT HISTORY: Personal history of breast cancer. Prior right lumpectomy and radiation treatment. Grandmother with breast cancer. TECHNIQUE: Digital bilateral breast gely (3D mammographic acquisition) in the CC and MLO projections. 2-D mediolateral oblique (MLO) and craniocaudad (CC) views of both breasts were obtained. CAD: Full Field Digital Mammography with Computer Added Detection was performed. COMPARISON: Comparison is made with prior examination dated 01/08/2019 and 12/16/2017. FINDINGS: Breast Composition: The breasts are heterogeneously dense, which may obscure small masses. There are no dominant masses or suspicious calcifications. Once again, the patient is status post right lumpectomy in the deep medial region of the right breast. Surgical clips are seen in the right axillary region. No other significant abnormalities are identified. There has been no significant change since the prior study. BI/SCREEN MAMM (CAD) W/GELY BILAT IMPRESSION: Stable bilateral screening mammogram. Yearly follow-up mammogram recommended. (A) ASSESSMENT CATEGORY: BIRADS Category 2: Benign. A letter regarding these results will be sent to the patient by the facility within 30 days. Approximately 10% of breast cancers are not detected by mammography. A normal mammogram should not delay biopsy of a clinically suspicious abnormality. [id number] Electronically Signed: Silverio Masters, at 8:43 EDT , Service support ,
== END ==
PROVIDERS: PCP Internal Medicine; Referring Provider Internal Medicine; Visit Provider Internal Medicine
DX: Z12.31 Encounter for screening mammogram for malignant neoplasm of breast (principal)
CPT/HCPCS: 77063; 77067

== ENCOUNTER → 2020-05-23 13:48 | Outpatient (CLI) | payer OTHER, SELFPAY ==
--- NOTE | 2020-05-23 14:09 | BD_ITS ---
STUDY: DUAL ENERGY X-RAY ABSORPTIOMETRY / DXA REASON FOR EXAM: Female, 60 years old. Surgical rocío age 46 total hysterectomy. Pat is 134.4# and 64.5 and quot; a loss of 1 and quot; per pat. Currently taking a diuretic. Takes a multi-vit. Has had 2 Prolia injections. Exercises a lot. Mother has osteo. Hx of a finger fx. Left wrist surgery. TECHNIQUE: Bone Mineral Density (BMD) measurements of lumbar spine and bilateral hips were obtained. COMPARISON: Comparison is made with prior study dated 05/19/2018. FINDINGS: Lumbar Spine (L1-L4): g/cm2 (1.001) / T-score (-1.5) / Z-score (-0.4) Findings are suggestive of osteopenia with a low fracture risk. Left Femur Total: g/cm2 (0.733) / T-score (-2.2) / Z-score (-1.4) Left Femoral Neck: g/cm2 (0.678) / T-score (-2.6) / Z-score (-1.4) Right Femur Total: g/cm2 (0.784) / T-score (-1.8) / Z-score (-1.0) Right Femoral Neck: g/cm2 (0.768) / T-score (-1.9) / Z-score (-0.8) The T-Scores on the most recent prior examination were: Lumbar Spine (L1-L4): There has been improvement of bone density since the previous examination. Left Femur Total: which represents an improvement of 8.9%. Right Femur Total: which represents an improvement of 8%. BD/Dexa Bone Density Study IMPRESSION: The patient is considered osteoporotic as outlined below according to World Murphy Organization (WHO) criteria with a high fracture risk. There has been improvement of bone density since the previous examination. Reference Information: The T-score is the number of standard deviations above or below the standard which is normal for young adults at their peak bone mineral density. The World Health Organization (WHO) interprets the T-scores as follows: Above -1 Normal bone density Between -1 and -2.5 Osteopenia Equal to / or below -2.5 Osteoporosis As a practical clinical guideline, osteopenia may be graded as follows: Mild -1 through -1.5 Moderate -1.6 through -2.0 Severe -2.1 through -2.4 The Z-score is the number of standard deviations above or below age-matched controls. A Z-score of less than -1.5 would be considered abnormal. References: 1. NIH Osteoporosis and Related Bone Diseases www osteo.org 2. International Society for Clinical Densitometry www iscd.org 3. National Osteoporosis Foundation www nof.org Electronically Signed: Silverio Masters, at 15:08 EST , Service support ,
== END ==
LOC: OPBD 13:50
PROVIDERS: PCP Internal Medicine; Referring Provider Internal Medicine; Visit Provider Internal Medicine
DX: M81.0 Age-related osteoporosis without current pathological fracture (principal)
CPT/HCPCS: 77080

== ENCOUNTER → 2021-03-06 07:12 | Outpatient (CLI) | payer OTHER, SELFPAY ==
--- NOTE | 2021-03-06 07:14 | BI_ITS ---
MAMMOGRAPHY - BILATERAL SCREENING REASON FOR EXAM: Female, 60 years old. Routine annual screening examination. PERTINENT HISTORY: Personal history of breast cancer. Prior right lumpectomy and radiation treatment. Grandmother with breast cancer. TECHNIQUE: Digital bilateral breast gely (3D mammographic acquisition) in the CC and MLO projections. 2-D mediolateral oblique (MLO) and craniocaudad (CC) views of both breasts were obtained. CAD: Full Field Digital Mammography with Computer Added Detection was performed. COMPARISON: Comparison is made with prior study 02/25/2020 and 01/08/2019. FINDINGS: Breast Composition: The breasts are heterogeneously dense, which may obscure small masses. There are no dominant masses or suspicious calcifications. Once again, there is evidence of a architectural distortion in the medial aspect of the right breast and keep with the prior lumpectomy. Surgical clips are also seen in the right axillary region. No other significant abnormalities are identified. There has been no significant change since the prior study. BI/SCRN MAMM (CAD)W/GELY BILAT IMPRESSION: Stable bilateral screening mammogram. Yearly follow-up mammogram recommended. (A) ASSESSMENT CATEGORY: BIRADS Category 2: Benign. A letter regarding these results will be sent to the patient by the facility within 30 days. Approximately 10% of breast cancers are not detected by mammography. A normal mammogram should not delay biopsy of a clinically suspicious abnormality. [id number] Electronically Signed: Silverio Masters MD at 8:20 EDT , Service support ,
== END ==
PROVIDERS: PCP Internal Medicine; Referring Provider Internal Medicine; Visit Provider Internal Medicine
DX: Z12.31 Encounter for screening mammogram for malignant neoplasm of breast (principal)
CPT/HCPCS: 77063; 77067

== ENCOUNTER → 2021-05-31 07:19 | Outpatient (CLI) | payer OTHER, SELFPAY ==
[2021-05-31 11:17] LABS: AST(SGOT) 39 U/L (15-37); Alanine Aminotransfer ALT/SGPT 82 U/L (13-56); Albumin, Serum 3.5 g/dL (3.2-5.0); Alkaline Phosphatase 85 U/L (45-117); Bilirubin, Direct 0.08 mg/dL (0.00-0.30); Ferritin 314 ng/mL (8-252); GGTP 63 U/L (5-55); Globulin 4.3 g/dL (2.2-4.2); Protein, Total 7.8 g/dL (6.4-8.2)
[2021-05-31 11:22] LABS: Hepatitis B Surface Antibody Non-Reactive
[2021-06-01 15:08] LABS: HEPATITIS B SURFACE AG Negative (Negative); Hepatitis A IgM Antibody Negative (Negative); Hepatitis B Core AB IgM Negative (Negative); Transferrin 236 mg/dL (192-364)
[2021-06-01 16:22] LABS: ANTINUCLEAR ANTIBODIES DIRECT Negative (Negative); Anti-Mitochondrial AB <20.0 Units (0.0-20.0)
[2021-06-01 16:26] LABS: Anti-Smooth Muscle ABS 7 Units (0-19); Hep C Antibodies <0.1 s/co ratio (0.0-0.9); Hepatitis A AB, Total Positive (Negative)
== END ==
PROVIDERS: PCP Internal Medicine; Referring Provider Internal Medicine; Visit Provider Internal Medicine
DX: R74.8 Abnormal levels of other serum enzymes (principal)
CPT/HCPCS: 36415; 80074; 80076; 82728; 82977; 83516; 84466; 86038; 86706; 86708

== ENCOUNTER → 2021-06-07 07:01 | Outpatient (CLI) | payer OTHER, SELFPAY ==
--- NOTE | 2021-06-07 07:08 | US_ITS ---
STUDY: ABDOMINAL ULTRASOUND - RIGHT UPPER QUADRANT REASON FOR VISIT: Female, 61 years old ELEVATED ENZYMES TECHNIQUE: Ultrasound evaluation of the right upper quadrant was performed with real-time and static christine-scale imaging. TECHNICAL QUALITY: Adequate. COMPARISON: None. FINDINGS: Liver: The liver measures 13.3 cm. There is normal echogenicity of the liver. The bile ducts are within normal limits. There is hepatic color flow. The direction of portal flow is hepatopetal. 1.6 cm x 3.2 cm x 1.4 cm echogenic nodule in the right lobe of liver suggestive of an hemangioma. Gallbladder: Normal distended gallbladder. The gallbladder wall measures 1.5 mm. There is a negative sonographic Orona''s sign. There is no pericholecystic fluid. There are no gallstones. Common Bile Duct (C.B.D.): The common bile duct measures 1.9 mm. Pancreas: Normal size of the head, body and tail of the pancreas. There is normal echogenicity of the pancreas. There is no demonstrated pancreatic mass or cyst. Right Kidney: Normal size of the right kidney. The right kidney measures 10.3 cm x 4.5 cm x 4 cm. Normal renal cortex. The right cortex measures 1.6 cm. There is no demonstrated renal mass or cyst. There is no right hydronephrosis. US/Liver IMPRESSION: Findings suggestive of a 1.6 cm x 3.2 cm by 1.4 cm hemangioma in the right lobe of the liver. Electronically Signed: Silverio Masters MD at 8:21 EST , Service support ,
== END ==
PROVIDERS: PCP Internal Medicine; Referring Provider Internal Medicine; Visit Provider Internal Medicine
DX: R74.8 Abnormal levels of other serum enzymes (principal)
CPT/HCPCS: 76705

== ENCOUNTER → 2022-03-13 | Outpatient (CLI) | payer OTHER, SELFPAY ==
--- NOTE | 2022-03-13 07:30 | BI_ITS ---
MAMMOGRAPHY - BILATERAL SCREENING 3-D TOMOSYNTHESIS REASON FOR EXAM: Female, 62 years old. screening PERTINENT HISTORY: No significant family history. TECHNIQUE: 2-D mammograms and 3-D Tomosynthesis of the breast (s) were performed. CAD was performed. COMPARISON: 03/06/2021 FINDINGS: The breast composition is heterogeneously dense that can obscure small breast masses. Scattered benign calcifications are seen. No dense spiculated masses or suspicious microcalcifications are identified. No architectural distortion is identified. There is no skin thickening or retraction. There has been no significant change since the prior study. BI/SCRN MAMM (CAD)W/GELY BILAT IMPRESSION: No mammographic signs of malignancy. Routine yearly mammograms recommended. ASSESSMENT CATEGORY: BIRADS Category 1: Negative. A letter regarding these results will be sent to the patient by the facility within 30 days. FOLLOW UP RECOMMENDATION: Yearly follow up mammogram recommended. (A) Approximately 10% of breast cancers are not detected by mammography. A normal mammogram should not delay biopsy of a clinically suspicious abnormality. Electronically Signed: Eusebio Cagle MD at 8:41 EDT ,
== END | disposition home or self-care (01) ==
PROVIDERS: PCP Internal Medicine; Visit Provider Internal Medicine
DX: Z12.31 Encounter for screening mammogram for malignant neoplasm of breast (principal)
CPT/HCPCS: 77063; 77067

== ENCOUNTER → 2022-04-01 | Outpatient (CLI) | payer OTHER, SELFPAY ==
--- NOTE | 2022-04-01 07:35 | CT_ITS ---
STUDY: CT FACIAL BONES WITHOUT CONTRAST REASON FOR EXAM: Female, 62 years old. Recureent sinusitis RADIATION DOSAGE (If Supplied By Facility): CTDIvol = ( 29.38 ) mGy, DLP = ( 620.92 ) mGycm TECHNIQUE: The patient was scanned in a multi detector CT scanner. Sagittal and coronal images were reconstructed. Individualized dose optimization techniques were used for this CT. COMPARISON: None. FINDINGS: Normal soft tissue structures. Normal orbital chaney and orbital contents. Normal nasal bones and anterior nasal spine. Normal facial bones. There is no demonstrated fracture. Moderate mucosal thickening of the left frontal sinus. Right frontal sinus clear. Complete opacification of the left maxillary sinus with defect in the medial left maxillary sinus wall which could be related to erosion from maxillary sinusitis. Neoplastic disease such as nasopharyngeal carcinoma cannot be completely noted. There is soft tissue density extending from this defect into the nasal fossa on the left. Moderate left ethmoidal opacification. Right ethmoidal air cells clear. Small polyp or retention cyst inferior right sphenoid sinus 8 mm transverse by [address]/Sinus/Facial Bone IMPRESSION: Complete opacification of left maxillary sinus with extension through defect in medial left maxillary sinus wall. Findings likely represent severe sinusitis. Nasopharyngeal carcinoma cannot be excluded due to this expansile appearance and defect in the medial left maxillary sinus wall. Left-sided frontal sinus and ethmoidal air cell disease as detailed above. 4 x 8 mm polyp or retention cyst inferior left maxillary sinus. Electronically Signed: Jossue Vidales MD, IDA at 9:13 EDT ,
== END | disposition home or self-care (01) ==
PROVIDERS: PCP Internal Medicine; Referring Provider Internal Medicine; Visit Provider Internal Medicine
DX: J32.9 Chronic sinusitis, unspecified (principal)
CPT/HCPCS: 70486

== ENCOUNTER → 2023-03-14 | Outpatient (CLI) | payer OTHER, SELFPAY ==
--- NOTE | 2023-03-14 09:35 | BI_ITS ---
MAMMOGRAPHY - BILATERAL SCREENING REASON FOR EXAM: Female, 63 years old. Routine annual screening examination. PERTINENT HISTORY: Personal history of breast cancer. Prior right lumpectomy and radiation treatment. TECHNIQUE: Digital bilateral breast gely (3D mammographic acquisition) in the CC and MLO projections. 2-D mediolateral oblique (MLO) and craniocaudad (CC) views of both breasts were obtained. CAD: Full Field Digital Mammography with Computer Added Detection was performed. COMPARISON: Comparison is made with prior study March 13, 2022 and March 06, 2021. FINDINGS: Breast Composition: The breasts are heterogeneously dense, which may obscure small masses. There are no dominant masses or suspicious calcifications. The patient is status post lumpectomy in the medial aspect of the right breast with resultant scarring. This is unchanged. Surgical clips are also seen in the right axillary region. No other significant abnormalities are identified. There has been no significant change since the prior study. BI/SCRN MAMM (CAD)W/GELY BILAT IMPRESSION: Stable bilateral screening mammogram. Yearly follow-up mammogram recommended. (A) ASSESSMENT CATEGORY: BIRADS Category 2: Benign. A letter regarding these results will be sent to the patient by the facility within 30 days. Approximately 10% of breast cancers are not detected by mammography. A normal mammogram should not delay biopsy of a clinically suspicious abnormality. [id number] Electronically Signed: Silverio Masters MD at 11:10 EDT ,
== END | disposition home or self-care (01) ==
LOC: OPBI 09:34
PROVIDERS: PCP Internal Medicine; Referring Provider Internal Medicine; Visit Provider Internal Medicine
DX: Z12.31 Encounter for screening mammogram for malignant neoplasm of breast (principal)
CPT/HCPCS: 77063; 77067

== ENCOUNTER → 2024-03-18 | Outpatient (CLI) | payer OTHER, SELFPAY ==
--- NOTE | 2024-03-18 13:46 | BI_ITS ---
MAMMOGRAPHY - BILATERAL SCREENING REASON FOR EXAM: Female, 64 years old. Routine annual screening examination. PERTINENT HISTORY: Personal history of breast cancer. Prior right lumpectomy with radiation. Prior left breast reduction surgery. TECHNIQUE: Digital bilateral breast gely (3D mammographic acquisition) in the CC and MLO projections. 2-D mediolateral oblique (MLO) and craniocaudad (CC) views of both breasts were obtained. CAD: Full Field Digital Mammography with Computer Added Detection was performed. COMPARISON: Comparison is made with prior study March 14, 2023 and March 13, 2022. FINDINGS: Breast Composition: The breasts are heterogeneously dense, which may obscure small masses. There are no dominant masses or suspicious calcifications. Once again, the patient is status post lumpectomy in the medial aspect of the right breast with resultant postoperative scarring. Surgical clips are also seen in the right axilla. Stable small benign-appearing bilateral axillary lymph nodes. No other significant abnormalities are identified. There has been no significant change since the prior study. BI/SCRN MAMM (CAD)W/GELY BILAT IMPRESSION: Stable bilateral screening mammogram. Yearly follow-up mammogram recommended. (A) ASSESSMENT CATEGORY: BIRADS Category 2: Benign. A letter regarding these results will be sent to the patient by the facility within 30 days. Approximately 10% of breast cancers are not detected by mammography. A normal mammogram should not delay biopsy of a clinically suspicious abnormality. [id number] Electronically Signed: Silverio Masters MD at 14:19 EDT ,
== END | disposition home or self-care (01) ==
LOC: OPBI 13:46
PROVIDERS: PCP Internal Medicine; Referring Provider Internal Medicine; Visit Provider Internal Medicine
DX: Z12.31 Encounter for screening mammogram for malignant neoplasm of breast (principal)
CPT/HCPCS: 77063; 77067

== ENCOUNTER → 2024-03-18 | Outpatient (CLI) | payer OTHER, SELFPAY | END | disposition home or self-care (01) | LOC: OPBI 13:36 | PROVIDERS: PCP Internal Medicine; Referring Provider Internal Medicine; Visit Provider Internal Medicine | DX: R69 Illness, unspecified (principal) ==

== ENCOUNTER → 2025-03-24 | Outpatient (CLI) | payer OTHER, SELFPAY ==
--- NOTE | 2025-03-24 09:50 | BD_ITS ---
PROCEDURE: DEXA BONE DENSITY STUDY 03/24/2025 REASON FOR EXAM: F, age 65 y/o . Postmenopausal screening. TECHNIQUE: Procedure Code: BDDBD Modality: DX Procedure: DEXA BONE DENSITY STUDY COMPARISON: Multiple previous studies dating back to 2013, the most recent from 2019 FINDINGS: BMD and T-SCORES Lumbar spine: 0.829 g/cm2, T-score -2.0 Levels: L1 through L4 Change from prior: Decrease of 6%. Left femoral neck: 0.527 g/cm2, T-score -2.9 Femoral neck comparison data not recommended for monitoring change. Prior T-score Left total hip: 0.677 g/cm2, T-score -2.2 Change from prior: Increase of 0.3%. Right femoral neck: 0.596 g/cm2, T-score -2.3 Femoral neck comparison data not recommended for monitoring change. Prior T-score Right total hip: 0.715 g/cm2, T-score -1.9 Change from prior: Decrease of 1.3%. The World Health Organization has defined the following categories based on bone density: Normal bone density: T-score equal to or greater than -1.0 Osteopenia: T-score between -1.0 and -2.5 Osteoporosis: T-score equal to or less than -2.5 FRAX (or Comparable) Fracture Risk Assessment: 10 Year Probability of Fracture: Major Osteoporotic Fracture: 14% Hip Fracture: 3.5% (Note: FRAX is not to be reported in setting of normal range bone density, osteoporosis on DEXA, known history of osteoporosis, prior osteoporotic hip or vertebral fracture, or for any patient undergoing pharmacological treatment for bone loss.) The National Osteoporosis Foundation (NOF) recommends pharmacological treatment for patients with a FRAX 10-year risk of 3% or higher for a hip fracture, or 20% or higher for a major osteoporotic fracture, to prevent osteoporosis and reduce fracture risk. The patient does meet the pharmacological treatment recommendations for prevention of osteoporosis. BD/Dexa Bone Density Study IMPRESSION: OSTEOPOROSIS. Recommend follow-up as clinically warranted. Reading Location: [id number]
--- NOTE | 2025-03-24 10:30 | BI_ITS ---
EXAM: SCRN MAMM (CAD)W/GELY BILAT DATE: 03/24/2025 CLINICAL HISTORY: F, Age 65 y/o , SCRN MAMM (CAD)W/GELY BILAT Routine screening TECHNIQUE: Procedure Code: [id number] Modality: MG Procedure: SCRN MAMM (CAD)W/GELY BILAT COMPARISON: Prior exam(s) dated 03/18/2024. FINDINGS: TISSUE DENSITY: The breasts are heterogeneously dense, which may obscure small masses. Bilateral Breast Mammographic Findings: No significant masses, calcifications or other abnormalities are identified. Stable scattered punctate and lucent centered calcifications. No interval change BI/SCRN MAMM (CAD)W/GELY BILAT IMPRESSION: Stable screening mammogram, no suspicious findings OVERALL FINAL ASSESSMENT BI-RADS 2: BENIGN RECOMMENDATION: Routine annual follow-up in 1 Year Additional Recommendation none A letter with findings and recommendations will be mailed to the patient. Reading Location: [id number]
--- NOTE | 2025-03-24 10:30 | BI_ITS ---
EXAM: SCRN MAMM (CAD)W/GELY BILAT DATE: 03/24/2025 CLINICAL HISTORY: F, Age 65 y/o , SCRN MAMM (CAD)W/GELY BILAT Routine screening TECHNIQUE: Procedure Code: [id number] Modality: MG Procedure: SCRN MAMM (CAD)W/GELY BILAT COMPARISON: Prior exam(s) dated 03/18/2024. FINDINGS: TISSUE DENSITY: The breasts are heterogeneously dense, which may obscure small masses. Bilateral Breast Mammographic Findings: No significant masses, calcifications or other abnormalities are identified. Stable scattered punctate and lucent centered calcifications. No interval change BI/SCRN MAMM (CAD)W/GELY BILAT IMPRESSION: Stable screening mammogram, no suspicious findings OVERALL FINAL ASSESSMENT BI-RADS 2: BENIGN RECOMMENDATION: Routine annual follow-up in 1 Year Additional Recommendation none A letter with findings and recommendations will be mailed to the patient. Reading Location: [id number]
== END | disposition home or self-care (01) ==
LOC: OPBD 09:49
PROVIDERS: PCP Internal Medicine; Referring Provider Internal Medicine; Visit Provider Internal Medicine
DX: Z12.31 Encounter for screening mammogram for malignant neoplasm of breast (principal); M81.0 Age-related osteoporosis without current pathological fracture
CPT/HCPCS: 77063; 77067; 77080

== ENCOUNTER → 2025-04-01 | Outpatient (CLI) | payer OTHER, SELFPAY ==
[2025-04-01 10:58] LABS: AST(SGOT) 54 U/L (<=31); Alanine Aminotransfer ALT/SGPT 66 U/L (<=34); Albumin, Serum 4.2 g/dL (3.4-4.8); Alkaline Phosphatase 130 U/L (35-104); Bilirubin, Direct 0.12 mg/dL (0.00-0.30); Cholesterol 151 mg/dL (<=200); Globulin 3.0 g/dL (2.2-4.2); Low Density Lipoprotein Calc. 71 mg/dL; Triglycerides 80 mg/dL; Very Low Density Lipoprotein 16 mg/dL (5-40); cholesterol:hdl ratio screen 2.36
== END | disposition home or self-care (01) ==
LOC: MTLAB 07:32
PROVIDERS: PCP Internal Medicine; Referring Provider Internal Medicine; Visit Provider Internal Medicine
DX: Z51.81 Encounter for therapeutic drug level monitoring (principal); Z79.899 Other long term (current) drug therapy
CPT/HCPCS: 36415; 80061; 80076

== ENCOUNTER → 2025-06-10 | Outpatient (CLI) | payer OTHER, SELFPAY ==
[2025-06-10 11:02] LABS: AST(SGOT) 35 U/L (<=31); Alanine Aminotransfer ALT/SGPT 51 U/L (<=34); Albumin, Serum 4.3 g/dL (3.4-4.8); Alkaline Phosphatase 68 U/L (35-104); Bilirubin, Direct 0.17 mg/dL (0.00-0.30); Globulin 2.8 g/dL (2.2-4.2)
== END | disposition home or self-care (01) ==
LOC: CIMLAB 08:18
PROVIDERS: PCP Internal Medicine; Referring Provider Internal Medicine; Visit Provider Internal Medicine
DX: R74.8 Abnormal levels of other serum enzymes (principal)
CPT/HCPCS: 36415; 80076